=== PATIENT | female | born 1980 | race Caucasian/White ===

== ENCOUNTER 2017-05-06 10:21 | Day surgery (SDC) | payer MEDICAID, SELFPAY ==
[2017-04-25 11:29] VITALS: BP 130/90
[2017-04-25 13:09] VITALS: BMI 33.1
[2017-05-06 10:42] VITALS: BP 144/91; PULSE 83; RESP 16; TEMP 37.1; O2SAT 100; BMI 33.7
--- NOTE | 2017-05-06 11:31 | HP.PCM_ITS ---
- Problem List (1) Chronic pelvic pain in female Status: Acute (2) Left ovarian cyst Status: Acute Comment: plan left ovarian cystectomy possible oophorectomy. us ordered. 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: No Is patient in pain?: Yes Allergies duloxetine [From Cymbalta] Allergy (Verified 04/13/17 15:08) Rash Medications Sumatriptan Succinate [Imitrex] 50 mg PO BID PRN 09/21/14 [History Confirmed ] Is last menstrual period known: No Post menopausal: No Patient : No : No PFSH Medical History History of migraine headaches (Acute) Hypertension (Chronic) Surgical History delivery delivered (Acute) H/O sinus surgery (Acute) H/O: hysterectomy (Acute) History of tonsillectomy (Acute) Family History Mother Cancer cervical Father Cancer Throat Grandmother Breast cancer Cancer Brain Stomach Grandfather Cancer Prostate Lung Social History Smoking Status: Former smoker alcohol intake: never substance use type: does not use caffeine: Yes what type of physical activity do you participate in: none seatbelt use: always do you feel safe at home: Yes additional social history: 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 Date Name GA/Weeks Outcome Route Bth Weight Infant Gen Labor Lgth Anesthesia Del Locatn Provider FOB Unknown 2007 [place] Unknown 2011 [facility] ER FOLLOW UP : Details: KADIE REYES is a 37 year old who presents for a year and ahlf ago had an episode of severe pelvic pain, she had an ovarian abnormality. She has a history of a hysterectomy in the past by dr diallo. In the last 6 months she has had intermittent lower cramping that has bothered her. It does seem more frequent now, and on wednesday it was signficant and yesterday it was severe. Pain is usually on the left side and then it moved to the right. ROS Const Constitutional: Reports system reviewed and no additional complaints, except as docu GI GI: Reports as per HPI : Reports as per HPI Exam Const General: cooperative, healthy appearing, comfortable, no acute distress, well developed, well groomed GI Inspection: normal to inspection, non-distended Palpation: soft, not firm, no guarding, no masses Assessment & Plan Problems 1. Chronic pelvic pain in female R10.2; G89.29 2. Left ovarian cyst N83.202 plan left ovarian cystectomy possible oophorectomy. us ordered. Plan recommend laparoscopic left ovarian cystectomy possible oophorectomy due to persistent ovarian mass and increasing pain. US to be done prior to surgery. counseled patient regarding risks of early menopause, risks of torsion. i discussed surgical risks and patient wishes to proceed. Orders Orders: Pelvic (Non ) 04/13/17 N83.202 Transvaginal Non- 04/13/17 N83.202 Coding Level of Care Code Off vis,new,level 3 Diagnoses Chronic pelvic pain in female R10.2; G89.29 Left ovarian cyst N83.202 04/14/17 0632<Electronically signed by Nicole Vernon MD> Date Nicole eVrnon MD
--- NOTE | 2017-05-06 12:00 | OV_PTH ---
PATIENT: KADIE REYES [place] [facility] [place][id number] AGE/SX: 37/F ROOM: RE05/06/[address]: Dr. Nicole Vernon MD : 1980 BED: DIS: 05/06/2017 SPEC #: [id number] RECD: 05/06/17 14:05 STATUS: VIVEK JAMES #: [id number] SHAN: 05/06/17 12:[address]: Nicole Vernon DEPT: SURGICAL PATHOLOGY RECD BY: Kevin Mcnally ENTERED: 05/06/17 14:17 SP TYPE: OVARY OTHR DR: Dr. Kevin Ashford MD Tissues: OVARIAN CYST Procedures: Surgery Specimen Level IV HEADER OPERATION: Laparoscopic left ovarian cystectomy, lysis of adhesion PRE-OP DIAGNOSIS: Left ovarian cyst, pelvic pain POST-OP DIAGNOSIS: Same plus pelvic adhesions TISSUE SUBMITTED: Left ovarian cyst, partial left ovary MICROSCOPIC DIAGNOSIS Left ovary, partial oophorectomy: Ovary with fragments of hemorrhagic corpus luteal cyst. AM:matt 05/07/17 MICROSCOPIC DESCRIPTION Slides are reviewed. GROSS DESCRIPTION Received in fixative is one container labeled with the patient's name and designated left ovarian cyst, partial left ovary. The specimen consists of multiple pieces of pink, congested and hemorrhagic soft tissue consisting of portion of ovary and tissue that in aggregate measure 5 x 4.5 x 2 cm. Three of the detached fragments consist of blood clots and may represent content of cyst. Focal areas suggestive of hemorrhagic cyst are also noted in the largest piece of tissue. Electronics Research Engineer sections are submitted in four cassettes. / SJ:matt 05/06/17 TC:5 CPT: 71869
[2017-05-06] MEDS: Bupivacaine 0.25% 30 ML Vial (12:50)
[2017-05-06 13:55] VITALS: BP 117/83; BP 144/91; PULSE 60; RESP 16; TEMP 35.9; O2SAT 95
[2017-05-06] MEDS: NON-FORMULARY PO (14:00)
[2017-05-06 14:15] VITALS: BP 109/66; BP 144/91; PULSE 52; RESP 16; O2SAT 99
[2017-05-06 14:30] VITALS: BP 106/67; BP 144/91; PULSE 60; RESP 16; O2SAT 98
[2017-05-06 14:45] VITALS: BP 112/77; BP 144/91; PULSE 55; RESP 16; TEMP 36.8; O2SAT 100
--- NOTE | 2017-05-06 15:15 | PCM.DC.TUB ---
Discharge Diet: No Restrictions - Increase fluid intake for the next 48 hours. Discharge Activity: Return to Normal Activity, May Drive - when you are no longer taking narcotic pain medications., May Shower, May Take a Tub Bath - in 7 days Additional Activity Instructions:: Ambulate often the next week after surgery. Nothing in the vagina for 5 days. Call your doctor if your incision/area has: Continuous Slow Oozing, Sudden Increased Bleeding, Increased Pain/ Swelling, Increased Redness, Foul Smelling Discharge Call your doctor if you observe: Fever of 101 or Higher Allergies/Adverse Reactions: Allergies duloxetine [From Cymbalta] Allergy (Verified 04/25/17 11:29) Rash Medications to take at Discharge Sumatriptan Succinate [Imitrex] 50 mg PO BID PRN 09/21/14 Buprenorphine HCl/Naloxone HCl [Suboxone 2 mg-0.5 mg Sl Film] 2 each SL TID 04/20/17 azithromycin 250 mg tablet See Label Instructions PO .COMPLEX #6 tab 04/25/17 Naproxen [Naprosyn] 250 - 500 mg PO Q8H PRN PRN #30 tab 05/06/17 The following prescriptions were given: Naproxen [Naprosyn] 250 - 500 mg PO Q8H PRN PRN #30 tab PRN Reason: MILD PAIN Primary Care Physician: Kevin Ashford MD [Primary Care Provider] - Please Follow Up With: Nicole Vernon MD - [phone]
[2017-05-06 15:28] VITALS: BP 144/91
--- NOTE | 2017-05-07 07:05 | PCM.OPRPT ---
Problem List (1) Chronic pelvic pain in female Status: Acute (2) Left ovarian cyst Status: Acute Comment: plan left ovarian cystectomy possible oophorectomy. us ordered. Report of Operation Date of Procedure: 05/06/17 Pre-Operative Diagnosis: left complex ovarian cyst pelvic pain Post-Operative Diagnosis: complex left ovarian cyst endometriosis Surgery/Procedure Performed:: left ovarian cystectomy partial oophorectomy extensive lysis of adhesions laparoscopic Type of Anesthesia:: General Specimen's removed: left ovarian cyst/ ovary Drains: none Estimated Blood Loss (mL): 50cc Fluids Replaced: crystalloid Description of Procedure: Patient was taken in the operating room and was placed under general anesthesia was prepped and draped in normal sterile fashion in the dorsal lithotomy position. Bladder was drained of clear urine and SCDs were on preoperatively. Uterus was sounded and a uterine manipulator was placed after dilating. Attention was then paid to the abdominal portion of the procedure and the umbilicus was elevated with towel clamps and injected with Marcaine and after a 5 mm incision was made and the Veress needle was entered into the abdomen confirmed to be intra-abdominal with a low opening pressure of less than 5 mmHg. Abdomen was insufflated with CO2 gas and a 5 mm optical trocar was placed under direct visualization. A right and left lower quadrant 5 mm port and were placed under direct visualization. Liver and upper abdomen were visualized notably within normal limits and no other gross abnormalities were seen in the abdomen. extensive rectosigmoid to left pelvic side wall and colon to left ovarian and enteric adhesions to the vaginal cuff were noted. bowel adhesions to the cuff were taken down bluntly, with hydrodissection, and with the ligasure device. the ovary was severely adherent to the ovarian fossa and progressive separation of the tissues were made with sharp and blunt dissection. approimatley 40 minutes were spent on adhesioloysis. the left sigmoid to pelvic side wall adhesions were taken down with the ligasure device. an endometrioma was entered and the cyst wall was progressively removed and contents copiously irrigated. the remaining ovary was noted to be signficantly abnormal and therefore 3/4s of the ovary itself was removed but some residual normal ovarian tissue was left to maintain ovarian function. Ureter was visualized inferolateral to the operative area. At completion of the parital oophorectoomy cystectomy and extensive lysis of adhesions, the right 12 mm port site was closed with an vicryl using a bib swan. All instruments removed from the abdomen after gas was desufflated. Port sites were closed with 3-0 Monocryl Steri's and op sites were applied. All instruments removed from the vagina and patient was awoken and taken recovery in stable condition. Grafts/Implants Used: elisa - Complications no - Admit VTE Documentation VTE Present on Admission: No VTE Mechan Device Prophylaxis: SCD's
== END 2017-05-06 15:45 | disposition home or self-care (01) ==
LOC: SDC 10:21 → AC 10:22
PROVIDERS: Family Provider Family Medicine; PCP Family Medicine; Visit Provider Obstetrics & Gynecology
PROC: (CPT 58661; principal; 2017-05-06 11:45)
DX: N83.12 Corpus luteum cyst of left ovary (principal); G89.29 Other chronic pain; N80.1 Endometriosis of ovary; N73.6 Female pelvic peritoneal adhesions (postinfective); G43.909 Migraine, unspecified, not intractable, without status migrainosus; I10 Essential (primary) hypertension; Z79.899 Other long term (current) drug therapy; Z87.891 Personal history of nicotine dependence; R10.2 Pelvic and perineal pain
CPT/HCPCS: 00840; 58662; 86850; 86900; 88305; J7120; J2405

== ENCOUNTER → 2017-10-01 12:03 | Outpatient (CLI) | payer MEDICAID, SELFPAY ==
--- NOTE | 2017-10-01 12:05 | RAD_ITS ---
STUDY: X-RAY - RIGHT FOOT CLINICAL: Female, 37 years old. Lateral foot pain following injury. TECHNIQUE: 3 view(s) of the foot. COMPARISON: None. FINDINGS: Normal talus, calcaneus, and tarsal bones. Normal visualized subtalar, talonavicular, calcaneocuboid, tarsal and tarsometatarsal articulations. Normal metatarsi. Normal metatarsophalangeal joint of the great toe. Normal tibial and fibular sesamoid bones. Normal interphalangeal joint of the great toe. Normal phalanges of the great toe. Normal second through fifth metatarsophalangeal joints. Normal interphalangeal joints and phalanges of the lesser toes. The soft tissue structures are unremarkable. RAD/Foot min 3 Views IMPRESSION: Normal x-ray examination of the foot. Electronically Signed: Sukhwinder Martinez MD at 12:33 EDT Tel [phone], Service support ,
== END ==
PROVIDERS: Family Provider Family Medicine; PCP Family Medicine; Visit Provider Physician Assistant Surgical
DX: S96.911A Strain of unspecified muscle and tendon at ankle and foot level, right foot, initial encounter (principal)
CPT/HCPCS: 73630

== ENCOUNTER → 2018-03-15 14:02 | Outpatient (CLI) | payer MEDICAID, SELFPAY ==
[2018-03-14 14:14] VITALS: BMI 33.7
[2018-03-15 15:02] LABS: Red Blood Cells-Urine 0 SEEN /hpf (0-5); White Blood Cells 0 SEEN /hpf (0-5)
[2018-03-15 15:11] LABS: Color, Urine Yellow (Yellow); Glucose, Dipstick Normal (Normal); Ketone-Dipstick Negative (Negative); Leukocyte Esterase-Dipstick Negative /ul (Negative); Nitrite-Dipstick Negative (Negative); Occult Blood-Urine Negative /ul (Negative); Protein-Dipstick Negative (Negative); Urine Bilirubin Dipstick Negative (Negative); Urine Clarity Sl. Cloudy (Clear); Urine Urobilinogen Normal (Normal)
[2018-03-15 15:19] LABS: Bacteria RARE /hpf (None Seen); Calcium Oxalate Crystals Ur 1+ /hpf (<or=2+); Mucous, Urine 1+ /hpf (<or=2+); Squamous Epithelial Cells - UA 0-5 SEEN /hpf (5-10)
--- OUTSIDE RECORDS SUMMARY | 2018-06-17 01:37 | XMS RPT_ITS ---
:1980 Author Organization OHIP Care Team Providers Name Role Phone Austin Back Attending Unavailable Kevin Ashford Referring Unavailable Austin Back Attending Unavailable Austin Back Referring Unavailable Schberta, Kevin E Primary Care Unavailable Nicole Vernon Attending Unavailable Dejon, Kevin E Primary Care Unavailable Nicole Vernon Referring Unavailable Leland Madden Attending Unavailable Schinhelen Kevin Yari Referring Unavailable Schberta Kevin E Primary Care Unavailable Nicole Vernon Attending Unavailable Nicole Vernon Referring Unavailable Dejon Kevin E Primary Care Unavailable Nicole Vernon Consulting Unavailable Nicole Vernon Attending Unavailable Nicole Vernon Referring Unavailable Kevin Ashford Primary Care Unavailable Nicole Vernon Consulting Unavailable Meek Gloria Attending Unavailable Kevin Ashford Referring Unavailable Kevin Ashford Primary Care Unavailable Meek Gloria Attending Unavailable Meek Gloria Referring Unavailable Kevin Ashford Primary Care Unavailable Meek Gloria Attending Unavailable Kevin Ashford Referring Unavailable PROBLEMS PROBLEMS DATE TYPE CONDITION / CODE ATTENDING STATUS SOURCE 03/15/2018 Unknown R51 - Headache / Wygibson, Austin Active [facility] R51(ICD-10) [facility] Repository 10/01/2017 Unknown S96.911A - Strain Meek Gloria Active [facility] of unspecified [facility] muscle and tendon Hospital at ankle and foot Repository level, right foot, initial encounter / S96.911A(ICD-10) PROCEDURES PROCEDURES No Procedure Records FoundRESULTS RESULTS URINALYSIS, COMPLETE Collected: 03/15/2018 Status: F Source: [place] 3:01 PM [facility] REPOSITORY Order Comment: How was Urine Obtained? CLEAN CATCH TYPE CODE TESTS RESULT OUT OF RANGE REFERENCE UNITS LAB L400.3000 Yellow COLOR Normal Yellow LAB L400.3050 Clear Normal CLARITY Sl. Cloudy LAB L400.3200 Normal mg/dl Normal GLUCOSE, UR Normal LAB L400.3300 Negative mg/dL Normal BILIRUBIN URINE Negative LAB L400.3400 Negative mg/dl Normal KETONE UR Negative LAB L400.3465 1.002-1.030 Normal SP.GR. DIPSTX 1.020 LAB L400.3550 5.0 - 8.0 pH UR Normal 6.0 LAB L400.3600 Negative mg/dl PROT Normal DIPSTX Negative LAB L400.3700 Normal mg/dl Normal UROBILI Normal LAB L400.3750 Negative Normal NITRITE UR Negative LAB L400.3780 Negative /ul Normal OCCULT BLOOD-UR Negative LAB L400.3800 Negative /ul LEUK Normal ESTERASE Negative LAB L400.4050 0-5 /hpf WBC 0 Normal SEEN LAB L400.4100 0-5 /hpf 0 Normal RBC-UA SEEN LAB L400.4150 5-10 /hpf SQUAM Normal EPI 0-5 SEEN LAB L400.4300 None Seen /hpf Normal BACTERIA RARE LAB L400.4350 <or=2+ /hpf 1+ Normal MUCUS, URINE LAB L400.4700 <or=2+ /hpf CA OX 1+ Normal CRYSTAL Performed By: #### L400.0001 #### [facility] [address] [place], [place], [id number] Observed: 03/15/2018 Status: F Source: [place] CULTURE, URINE 1:15 PM [facility] REPOSITORY Urine Culture Culture exhibits no growth. Performed By: #### M100.0650 #### [facility] [address] [place], [place], [id number] URGENT CARE VISIT Observed: 03/14/2018 Status: F Source: [place] REPORT 4:13 PM [facility] REPOSITORY [facility] [address] [place] [address] OFFICE VISIT Date of Service: 03/14/18 MR#: [id number] Acct: [id number] Name: KADIE SWAN Dusty Rep #: [id number] : 1980 Provider: Austin ORDOÑEZ Age/Sex: 38/F Location: [facility].NOW Status: Signed Intake Vital Signs03/14/18 Body Mass Index (BMI) 33.7 03/14/18 Height 5 ft 5 in 03/14/18 Weight: 202 lb Intake Visit Reasons: EAR PAIN/MIGRAINE/FEVER Chief Complaint: Cough, Chest Congestion Allergies duloxetine [From Cymbalta] Allergy (Verified 03/14/18 14:14) Rash Medications Sumatriptan Succinate [Imitrex] 50 mg PO BID PRN 09/21/14 [History Confirmed 03/14/18] Buprenorphine HCl/Naloxone HCl [Suboxone 2 mg-0.5 mg Sl Film] 2 ea SL TID 04/20/17 [History Confirmed 03/14/18] Naproxen [Naprosyn] 250 - 500 mg PO Q8H PRN PRN #30 tab 05/06/17 [Rx Confirmed 03/14/18] PFSH Medical History H/O: hysterectomy (Acute) History of migraine headaches (Acute) Hypertension (Chronic) Surgical History delivery delivered (Acute) H/O sinus surgery (Acute) History of tonsillectomy (Acute) Family History Mother Cancer cervical Father Cancer Throat Grandmother Breast cancer Cancer Brain Stomach Grandfather Cancer Prostate Lung Social History Smoking Status: Former smoker alcohol intake: never substance use type: does not use caffeine: Yes what type of physical activity do you participate in: none seatbelt use: always do you feel safe at home: Yes additional social history: Patient is single and has in home day care HPI HPI Chief Complaint: Cough, Chest Congestion Details: KADIE SWAN is a 38 F who presents to the office today for initial evaluation 3-day history of migraine headaches that she describes. She notes 3 days ago upon awakening describing herself as feeling, just not feeling well but upon questioning for patient to further describe her symptoms she is unable to. She notes having a history of migraine headaches stating she has taken Imitrex as prescribed by her primary care physician but this has not helped. She currently notes her headache has subsided somewhat but is still present. She notes no complaints of lightheadedness dizziness nausea vomiting. She notes no history of head trauma. Additionally, patient notes that she has been having urinary frequency over the last several days as well. She notes no changes in the color or character of her urine or stool. She notes no taking over the other counter products to assist with her symptoms. She notes no other associated symptoms and no other alleviating or aggravating factors. ROS Const Constitutional: No other (ROS negative x10 other than as noted above) Exam Const General: cooperative, healthy appearing, no acute distress, comfortable Nutritional Appearance: average body habitus Orientation: alert, awake, oriented x3 HENMT Head: normal to inspection Ears: hearing grossly normal bilaterally, external ears normal, TM's normal bilaterally, EAC's normal Nose: external nose normal, nares normal, septum normal, no nasal discharge Face and sinus: normal facial exam, sinuses nontender, face symmetric Mouth: tongue normal, lip normal, oral mucosae normal Teeth and gingiva: dentition normal, gingiva normal Throat: uvula midline, tonsils normal, posterior oropharynx normal, no postnasal drainage Eyes General: appearance normal, both eyes and all related structures Neck Neck: normal visual inspection, full ROM, no lymphadenopathy, no meningeal signs, supple Neck mass: No Thyroid: thyroid normal Lymphatic: no lymphadenopathy noted Chest Chest palpation AND inspection: normal inspection of the chest Resp Effort AND Inspection: normal respiratory effort, able to speak in complete sentences, symmetric chest movement, no cough Auscultation: Bilateral: Clear to Auscultation Cardio Palpation: normal PMI Rate: regular rate Rhythm: regular rhythm Heart Sounds: S1 normal, S2 normal, no gallops, no murmurs, no rubs Pulses: radial pulses present GI Inspection: normal to inspection Palpation: soft, no hepatosplenomegaly, nontender, not firm, no guarding General: No CVA tenderness, other (Negative urinalysis dip and negative urine hCG) Skin General: no rashes or lesions noted Neuro General: alert, awake, oriented x3, gait normal Cognition: normal cognition Speech: speech normal Gait: normal gait Motor: muscle tone normal throughout Sensory Exam: no sensory deficits noted Psych Appearance: grossly normal Mental Status: mental status grossly normal Mood: congruent mood Affect: normal affect Speech and Movement: speech and movement normal Attitude: cooperative Thought Process: normal Thought Content: normal Judgment: judgment good Results [facility] Office , Urine Negative Last Edit by Gilda Frias on 03/14/18 15:17 [facility] Office Urine Color YELLOW Last Edit by Gilda Frias on 03/14/18 15:18 Office Urine Clarity Clear Last Edit by Gilda Frias on 03/14/18 15:18 Assessment AND Plan Problems 1. Headache R51 2. Urinary frequency R35.0 Plan Clear fluids, rest, Tylenol as needed for symptomatic relief. Patient aware of today's urinalysis dip and urine hCG results as well as examination findings. Follow-up with PCP in 3-5 days should symptoms not improved, sooner should symptoms worsen or any other concerns develop. Patient states acknowledging understanding all the above. This note was generated with Method dictation software. It may contain incorrect words, spelling, and punctuation that were not noted in checking the note before signing. Orders Orders: Coding Level of Care Code Off vis,est,level 3 Diagnoses Headache R51 Urinary frequency R35.0 03/14/18 1613 <Electronically signed by Austin ORDOÑEZ> Date Austin Tanner Signature: Date (if applicable) CC: URGENT CARE VISIT Observed: 01/18/2018 Status: F Source: [place] REPORT 3:48 PM [facility] REPOSITORY [facility] [address] [place] [address] [address] [place] [address] OFFICE VISIT Date of Service: 01/18/18 MR#: [id number] Acct: [id number] Name: KADIE SWAN Rep #: [id number] : 1980 Provider: Meek ORDOÑEZ Age/Sex: 38/F Location: [facility] Status: Signed Intake Vital Signs01/18/18 Height 5 ft 5 in Intake Visit Reasons: VOMITING Allergies duloxetine [From Cymbalta] Allergy (Verified 01/18/18 15:24) Rash Medications Sumatriptan Succinate [Imitrex] 50 mg PO BID PRN 09/21/14 [History Confirmed 01/18/18] Buprenorphine HCl/Naloxone HCl [Suboxone 2 mg-0.5 mg Sl Film] 2 ea SL TID 04/20/17 [History Confirmed 01/18/18] Naproxen [Naprosyn] 250 - 500 mg PO Q8H PRN PRN #30 tab 05/06/17 [Rx Confirmed 01/18/18] PFSH Medical History H/O: hysterectomy (Acute) History of migraine headaches (Acute) Hypertension (Chronic) Surgical History delivery delivered (Acute) H/O sinus surgery (Acute) History of tonsillectomy (Acute) Family History Mother Cancer cervical Father Cancer Throat Grandmother Breast cancer Cancer Brain Stomach Grandfather Cancer Prostate Lung Social History Smoking Status: Former smoker alcohol intake: never substance use type: does not use caffeine: Yes what type of physical activity do you participate in: none seatbelt use: always do you feel safe at home: Yes additional social history: Patient is single and has in home day care HPI HPI Details: KADIE SWAN, is a 38 F who presents to the office today for complaint of nausea and vomiting for the past 18 hours. Patient states that her nausea and vomiting started yesterday and then continued this morning and today while at work. She denies any hematemesis, abdominal pain, diarrhea or hematochezia. She had no shortness of breath, difficulty breathing or chest pain. No fever, chills, sweats. No other associated symptoms or alleviating/aggravating factors. ROS Const Constitutional: No chills, fever(s), fatigue or abnormal sleep pattern Resp Respiratory: No shortness of breath or chest congestion Cardio Cardiology: No chest pain at rest, chest pain with exertion or shortness of breath Gastro GI: Positive for nausea/dyspepsia and vomiting; no diarrhea, Vomiting blood/hematemesis, Black,tarry stools or cramping Skin Skin: No wounds or lesions Neuro Neurology: No behavioral changes or confusion Psych Psychiatric: No abnormal sleep pattern, No behavioral changes, No confusion Endo Endocrine: No fatigue Exam Const General: cooperative, healthy appearing [facility] Head: normocephalic, atraumatic Ears: hearing grossly normal bilaterally Face and sinus: face symmetric Eyes General: appearance normal, both eyes and all related structures Pupils: PERRL Resp Effort AND Inspection: normal respiratory effort Auscultation: Bilateral: Clear to Auscultation Cardio Rate: regular rate Rhythm: regular rhythm Heart Sounds: S1 normal, S2 normal GI Inspection: normal to inspection Auscultation: hyperactive bowel sounds Percussion: normal to percussion Palpation: soft, no hepatosplenomegaly, no guarding, nontender General: No CVA tenderness, bimanual renal exam normal bilaterally Skin General: no rashes or lesions noted Neuro General: alert, CN's II-XI intact bilaterally Psych Appearance: grossly normal Mental Status: mental status grossly normal Assessment AND Plan Problems 1. Acute vomiting R11.10 Status Acute 2. Gastroenteritis K52.9 Status Acute Plan Encouraged to get plenty of rest, drink lots of clear liquids for the next 24 hours and then advance diet slowly, and use Tylenol or Ibuprofen (unless contraindicated) for fever and comfort. Patient also educated on other symptomatic management techniques. To be seen in 7-10 days if no improvement; sooner if worsening of symptoms. Patient advised of potential red flags and when appropriate report to the ED. Patient verbalized understanding and agreement with all the above. Medications Discontinued: azithromycin Discontinued Reason: Pt no l500 mg day 1, then 250 mg days 2-4 PO 6 tabs onger taking 0RF Coding Level of Care Code Off vis,est,level 3 Diagnoses Acute vomiting R11.10 Gastroenteritis K52.9 01/18/18 1548 <Electronically signed by Meek ORDOÑEZ> Date Meek ORDOÑEZ Cosigner Signature: Date (if applicable) CC: URGENT CARE VISIT Observed: 10/01/2017 Status: F Source: [place] REPORT 4:44 PM [facility] REPOSITORY [facility] [address] [place] [address] OFFICE VISIT Date of Service: 10/01/17 MR#: [id number] Acct: [id number] Name: KADIE SWAN Rep #: [id number] : 1980 Provider: Meek ORDOÑEZ Age/Sex: 37/F Location: [facility] Status: Signed Intake Vital Signs10/01/17 Height 5 ft 5 in Intake Visit Reasons: r foot injury 1month ago Grain Receiver Required: No Is patient in pain?: Yes (achy and sharp pain in right foot) Pain scale (1-10): 5 Allergies duloxetine [From Cymbalta] Allergy (Verified 10/01/17 11:57) Rash Medications Sumatriptan Succinate [Imitrex] 50 mg PO BID PRN 09/21/14 [History Confirmed 10/01/17] Buprenorphine HCl/Naloxone HCl [Suboxone 2 mg-0.5 mg Sl Film] 2 ea SL TID 04/20/17 [History Confirmed 10/01/17] azithromycin 250 mg tablet See Label Instructions PO .COMPLEX #6 tab 04/25/17 [Rx Confirmed 10/01/17] Naproxen [Naprosyn] 250 - 500 mg PO Q8H PRN PRN #30 tab 05/06/17 [Rx Confirmed 10/01/17] PFSH Medical History History of migraine headaches (Acute) Hypertension (Chronic) Surgical History delivery delivered (Acute) H/O sinus surgery (Acute) H/O: hysterectomy (Acute) History of tonsillectomy (Acute) Family History Mother Cancer cervical Father Cancer Throat Grandmother Breast cancer Cancer Brain Stomach Grandfather Cancer Prostate Lung Social History Smoking Status: Former smoker alcohol intake: never substance use type: does not use caffeine: Yes what type of physical activity do you participate in: none seatbelt use: always do you feel safe at home: Yes additional social history: Patient is single and has in home day care HPI HPI Details: KADIE SWAN, is a 37 F who presents to the office today for complaint of right foot pain. Patient states approximate 1 month ago her son jumped and landed on her foot. She does report that her pain in that foot has improved since however over the past 3 or 4 days she has been hiking quite a bit and has had an increase in the foot pain. She is concerned for possible fracture and is requesting an x-ray at this time. She denies any numbness or tingling to the foot she does report to continue have full range of motion. She reports the pain at this time is a 4-5 out of 10 at worst and a 1-2 out of 10 at rest. No other associated symptoms or alleviating/aggravating factors. ROS Const Constitutional: No chills, fever(s), fatigue or abnormal sleep pattern Musc Musculoskeletal: Positive for joint pain; no limited range of motion, numbness or tingling Skin Skin: No wounds or lesions Neuro Neurology: No behavioral changes, confusion, numbness or tingling Psych Psychiatric: No behavioral changes, No confusion, No abnormal sleep pattern Endo Endocrine: No fatigue Exam Const General: cooperative, healthy appearing Musc Musculoskeletal: Yes joint tenderness Skin General: no rashes or lesions noted Neuro General: alert, CN's II-XI intact bilaterally Extrem Other: Slight tenderness to palpation over the arch of the foot. Full range of motion, strength and sensation. No obvious deformity upon palpation. Psych Appearance: grossly normal Mental Status: mental status grossly normal Assessment AND Plan Problems 1. Strain of right foot, initial encounter S96.911A Status Acute Plan X-ray of the foot read and reviewed by myself with no acute findings. Patient advised to rest, ice, compression and elevation for supportive care. Advised to use ibuprofen as needed for pain control. Advised to follow-up with PCP in 5-7 days if no better or sooner if worse. Patient verbalized understanding of all the above. This note was generated with Method dictation software. It may contain incorrect words, spelling, and punctuation that were not noted in checking the note before signing. Orders Orders: Coding Level of Care Code Off vis,est,level 3 Diagnoses Strain of right foot, initial encounter S96.911A Encounter type: initial encounter 10/01/17 1644 <Electronically signed by Meek ORDOÑEZ> Date Meek ORDOÑEZ Cosigner Signature: Date (if applicable) CC: FOOT MIN 3 VIEWS Observed: 10/01/2017 Status: F Source: [place] 12:05 PM [facility] REPOSITORY [facility] Imaging Services [address] [place] [address] Foot min 3 Views MR#: [id number] Acct: [id number] Name: KADIE SWAN Rep #: [id number] : 1980 F 37 From: Sukhwinder Martinez MD PCP: Kevin Ashford MD Status: REG CLI Study: Foot min 3 Views Date of Exam: 10/01/17 Exam# [id number] Ordering Dr: Meek Gloria STUDY: X-RAY - RIGHT FOOT CLINICAL: Female, 37 years old. Lateral foot pain following injury. TECHNIQUE: 3 view(s) of the foot. COMPARISON: None. FINDINGS: Normal talus, calcaneus, and tarsal bones. Normal visualized subtalar, talonavicular, calcaneocuboid, tarsal and tarsometatarsal articulations. Normal metatarsi. Normal metatarsophalangeal joint of the great toe. Normal tibial and fibular sesamoid bones. Normal interphalangeal joint of the great toe. Normal phalanges of the great toe. Normal second through fifth metatarsophalangeal joints. Normal interphalangeal joints and phalanges of the lesser toes. The soft tissue structures are unremarkable. RAD/Foot min 3 Views IMPRESSION: Normal x-ray examination of the foot. Electronically Signed: Sukhwinder Martinez MD at 12:33 EDT Tel [phone], Service support , CC: Meek ORDOÑEZ; Kevin Ashford MD Follow Up Rep: Signed OPERATIVE REPORT Observed: 05/07/2017 Status: F Source: [place] 7:14 AM [facility] REPOSITORY [facility] Medical Records Department [address] [place] [address] Operative Report 05/07/17 0705 MR#: [id number] Acct: [id number] Name: KADIE SWAN Rep #: [id number] : 1980 37 From: Nicole Vernon MD PCP: Kevin Ashford MD Status: [facility] Location: [facility] Problem List (1) Chronic pelvic pain in female Status: Acute (2) Left ovarian cyst Status: Acute Comment: plan left ovarian cystectomy possible oophorectomy. us ordered. Report of Operation Date of Procedure: 05/06/17 Pre-Operative Diagnosis: left complex ovarian cyst pelvic pain Post-Operative Diagnosis: complex left ovarian cyst endometriosis Surgery/Procedure Performed:: left ovarian cystectomy partial oophorectomy extensive lysis of adhesions laparoscopic Type of Anesthesia:: General Specimen's removed: left ovarian cyst/ ovary Drains: none Estimated Blood Loss (mL): 50cc Fluids Replaced: crystalloid Description of Procedure: Patient was taken in the operating room and was placed under general anesthesia was prepped and draped in normal sterile fashion in the dorsal lithotomy position. Bladder was drained of clear urine and SCDs were on preoperatively. Uterus was sounded and a uterine manipulator was placed after dilating. Attention was then paid to the abdominal portion of the procedure and the umbilicus was elevated with towel clamps and injected with Marcaine and after a 5 mm incision was made and the Veress needle was entered into the abdomen confirmed to be intra-abdominal with a low opening pressure of less than 5 mmHg. Abdomen was insufflated with CO2 gas and a 5 mm optical trocar was placed under direct visualization. A right and left lower quadrant 5 mm port and were placed under direct visualization. Liver and upper abdomen were visualized notably within normal limits and no other gross abnormalities were seen in the abdomen. extensive rectosigmoid to left pelvic side wall and colon to left ovarian and enteric adhesions to the vaginal cuff were noted. bowel adhesions to the cuff were taken down bluntly, with hydrodissection, and with the ligasure device. the ovary was severely adherent to the ovarian fossa and progressive separation of the tissues were made with sharp and blunt dissection. approimatley 40 minutes were spent on adhesioloysis. the left sigmoid to pelvic side wall adhesions were taken down with the ligasure device. an endometrioma was entered and the cyst wall was progressively removed and contents copiously irrigated. the remaining ovary was noted to be signficantly abnormal and therefore 3/4s of the ovary itself was removed but some residual normal ovarian tissue was left to maintain ovarian function. Ureter was visualized inferolateral to the operative area. At completion of the parital oophorectoomy cystectomy and extensive lysis of adhesions, the right 12 mm port site was closed with an vicryl using a bib swan. All instruments removed from the abdomen after gas was desufflated. Port sites were closed with 3-0 Monocryl Steri's and op sites were applied. All instruments removed from the vagina and patient was awoken and taken recovery in stable condition. Grafts/Implants Used: elisa - Complications no - Admit VTE Documentation VTE Present on Admission: No VTE Mechan Device Prophylaxis: SCD's 05/07/17 0714 <Electronically signed by Nicole Vernon MD> Date Nicole Vernon MD CC: Kevin Ashford MD; Nicole Vernon MD Signed DISCHARGE INSTRUCTION Observed: 05/06/2017 Status: F Source: [place] 3:15 PM [facility] REPOSITORY [facility] Medical Records Department [address] [place] [address] Instructions for Home/Discharge Instructions 05/06/17 1515 MR#: [id number] Acct: [id number] Name: KADIE SWAN Rep #: [id number] : 1980 37 From: Nicole Vernon MD PCP: Kevin Ashford MD Status: REG SDC Discharge Diet: No Restrictions - Increase fluid intake for the next 48 hours. Discharge Activity: Return to Normal Activity, May Drive - when you are no longer taking narcotic pain medications., May Shower, May Take a Tub Bath - in 7 days Additional Activity Instructions:: Ambulate often the next week after surgery. Nothing in the vagina for 5 days. Call your doctor if your incision/area has: Continuous Slow Oozing, Sudden Increased Bleeding, Increased Pain/ Swelling, Increased Redness, Foul Smelling Discharge Call your doctor if you observe: Fever of 101 or Higher Allergies/Adverse Reactions: Allergies duloxetine [From Cymbalta] Allergy (Verified 04/25/17 11:29) Rash Medications to take at Discharge Sumatriptan Succinate [Imitrex] 50 mg PO BID PRN 09/21/14 Buprenorphine HCl/Naloxone HCl [Suboxone 2 mg-0.5 mg Sl Film] 2 each SL TID 04/20/17 azithromycin 250 mg tablet See Label Instructions PO .COMPLEX #6 tab 04/25/17 Naproxen [Naprosyn] 250 - 500 mg PO Q8H PRN PRN #30 tab 05/06/17 The following prescriptions were given: Naproxen [Naprosyn] 250 - 500 mg PO Q8H PRN PRN #30 tab PRN Reason: MILD PAIN Primary Care Physician: Kevin Ashford MD [Primary Care Provider] - Please Follow Up With: Nicole Vernon MD - [phone] 05/06/175 <Electronically signed by Nicole Vernon MD> Date Nicole Vernon MD CC: Kevin Ashford MD OVARY (CHOOSE SIDE) Observed: 05/06/2017 Status: F Source: [place] 12:00 PM [facility] [place] REPOSITORY Patient: KADIE SWAN : 1980 (37/F) Acct Num: [id number] Phys: Saulo HINKLE,Nicole Unit Num: [id number] Loc: [facility] Specimen: [id number] Received: 05/06/171404 Spec Type: OVARY TISSUES TISSUES: OVARIAN CYST GROSS DESCRIPTION Received in fixative is one container labeled with the patient's name and designated left ovarian cyst, partial left ovary. The specimen consists of multiple pieces of pink, congested and hemorrhagic soft tissue consisting of portion of ovary and tissue that in aggregate measure 5 x 4.5 x 2 cm. Three of the detached fragments consist of blood clots and may represent content of cyst. Focal areas suggestive of hemorrhagic cyst are also noted in the largest piece of tissue. Superintendent Refuse Disposal sections are submitted in four cassettes. / SJ:matt TC:5 CPT: 95209 HEADER OPERATION: Laparoscopic left ovarian cystectomy, lysis of adhesion PRE-OP DIAGNOSIS: Left ovarian cyst, pelvic pain POST-OP DIAGNOSIS: Same plus pelvic adhesions TISSUE SUBMITTED: Left ovarian cyst, partial left ovary MICROSCOPIC DESCRIPTION Slides are reviewed. MICROSCOPIC DIAGNOSIS Left ovary, partial oophorectomy: Ovary with fragments of hemorrhagic corpus luteal cyst. AM:matt 05/07/17 Signed Remington Etienne 05/07/17 <signature on file> Performed By: #### POV #### [facility] [address] [place], [place], [address] HISTORY AND PHYSICAL Observed: 05/06/2017 Status: F Source: GREGORY EXAM 11:31 AM [facility] REPOSITORY [facility] Medical Records Department [address] [place] [address] History and Physical 05/06/17 1130 MR#: [id number] Acct: [id number] Name: KADIE SWAN N Rep #: [id number] : 1980 37 From: Nicole Vernon MD PCP: Kevin Ashford MD Status: REG [facility] Y Location: [place] [address] - Problem List (1) Chronic pelvic pain in female Status: Acute (2) Left ovarian cyst Status: Acute Comment: plan left ovarian cystectomy possible oophorectomy. us ordered. History and Physical Date of Admission: 05/06/17 OFFICE VISIT Date of Service: 04/13/17 MR#:[id number]:[id number] Name: KADIE SWAN NRep #:[id number] : 1980 Provider:Nicole Vernon MD Age/Sex: 37/F Location:[facility] [place] Status:Signed Intake Vital Signs 04/13/17 Height 5 ft 5 in 04/13/17 Weight: 205 lb 04/13/17 Body Mass Index (BMI) 34.1 04/13/17 Blood Pressure 143/97 Intake Visit Reasons: ER FOLLOW UP Chief Complaint: ER Follow Up Ovarian cyst left Grain Receiver Required: No Is patient in pain?: Yes Allergies duloxetine [From Cymbalta] Allergy (Verified 04/13/17 15:08) Rash Medications Sumatriptan Succinate [Imitrex] 50 mg PO BID PRN 09/21/14 [History Confirmed 04/13/17] Is last menstrual period known: No Post menopausal: No Patient : No : No PFSH Medical History History of migraine headaches (Acute) Hypertension (Chronic) Surgical History delivery delivered (Acute) H/O sinus surgery (Acute) H/O: hysterectomy (Acute) History of tonsillectomy (Acute) Family History Mother Cancer cervical Father Cancer Throat Grandmother Breast cancer Cancer Brain Stomach Grandfather Cancer Prostate Lung Social History Smoking Status: Former smoker alcohol intake: never substance use type: does not use caffeine: Yes what type of physical activity do you participate in: none seatbelt use: always do you feel safe at home: Yes additional social history: 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 Date Name GA/Weeks Outcome Route Bth Weight Gen Labor Lgth Anesthesia Del Locatdusty Provider FOB Unknown 2007 Nara Unknown 2011 Miguel Angel [facility] ER FOLLOW UP : Details: KADIE SWAN is a 37 year old who presents for a year and ahlf ago had an episode of severe pelvic pain, she had an ovarian abnormality. She has a history of a hysterectomy in the past by dr diallo. In the last 6 months she has had intermittent lower cramping that has bothered her. It does seem more frequent now, and on wednesday it was signficant and yesterday it was severe. Pain is usually on the left side and then it moved to the right. ROS Const Constitutional: Reports system reviewed and no additional complaints, except as docu GI GI: Reports as per HPI : Reports as per HPI Exam Const General: cooperative, healthy appearing, comfortable, no acute distress, well developed, well groomed GI Inspection: normal to inspection, non-distended Palpation: soft, not firm, no guarding, no masses Assessment AND Plan Problems 1. Chronic pelvic pain in female R10.2; G89.29 2. Left ovarian cyst N83.202 plan left ovarian cystectomy possible oophorectomy. us ordered. Plan recommend laparoscopic left ovarian cystectomy possible oophorectomy due to persistent ovarian mass and increasing pain. US to be done prior to surgery. counseled patient regarding risks of early menopause, risks of torsion. i discussed surgical risks and patient wishes to proceed. Orders Orders: Pelvic (Non ) 04/13/17 N83.202 Transvaginal Non- 04/13/17 N83.202 Coding Level of Care Code Off vis,new,level 3 Diagnoses Chronic pelvic pain in female R10.2; G89.29 Left ovarian cyst N83.202 04/14/17 0632<Electronically signed by Nicole Vernon MD> Date Nicole Vernon MD 05/06/17 1131 <Electronically signed by Nicole Vernon MD> Date [facility] MD [facility] Signature: Date (if applicable) CC: Kevin Ashford MD; Nicole Vernon MD Signed TYPE AND SCREEN Collected: 05/06/2017 Status: F Source: [place] 10:35 AM [facility] REPOSITORY Order Comment: Reason for Type AND Screen/Red Cells: SURGERY TYPE CODE TESTS RESULT OUT OF RANGE REFERENCE UNITS LAB B10.0800 O Normal BLOOD TYPE GEL NEGATIVE LAB B100.4000 Normal Antibody NEGATIVE Screen Performed By: #### B101.7450 #### [facility] [address] [place], [place], [address] URGENT CARE VISIT Observed: 04/25/2017 Status: F Source: [place] REPORT 1:10 PM [facility] REPOSITORY [facility] [address] [place] [address] [address] [place], [place] [address] OFFICE VISIT Date of Service: 04/25/17 MR#: [id number] Acct: [id number] Name: KADIE SWAN Rep #: [id number] : 1980 Provider: SMITA Madden Age/Sex: 37/F Location: [facility] [place] Status: Signed Intake Vital Signs04/25/17 Body Mass Index (BMI) 33.1 04/25/17 Height 5 ft 5 in 04/25/17 Weight: 199 lb 2 oz 04/25/17 Body Mass Index (BMI) 33.1 04/25/17 Blood Pressure 130/90 Intake Visit Reasons: Cough Chief Complaint: Cough, Chest Congestion Allergies duloxetine [From Cymbalta] Allergy (Verified 04/25/17 11:29) Rash Medications Sumatriptan Succinate [Imitrex] 50 mg PO BID PRN 09/21/14 [History Confirmed 04/25/17] Buprenorphine HCl/Naloxone HCl [Suboxone 2 mg-0.5 mg Sl Film] 2 ea SL TID 04/20/17 [History Confirmed 04/20/17] azithromycin 250 mg tablet See Label Instructions PO .COMPLEX #6 tab 04/25/17 [Rx Confirmed 04/25/17] prednisone 20 mg tablet 20 mg PO .COMPLEX 7 Days #10 tab 04/25/17 [Rx Confirmed 04/25/17] PFSH Medical History History of migraine headaches (Acute) Hypertension (Chronic) Surgical History delivery delivered (Acute) H/O sinus surgery (Acute) H/O: hysterectomy (Acute) History of tonsillectomy (Acute) Family History Mother Cancer cervical Father Cancer Throat Grandmother Breast cancer Cancer Brain Stomach Grandfather Cancer Prostate Lung Social History Smoking Status: Former smoker alcohol intake: never substance use type: does not use caffeine: Yes what type of physical activity do you participate in: none seatbelt use: always do you feel safe at home: Yes additional social history: Patient is single and has in home day care HPI Cough: Details: KADIE SWAN, is a 37 F who presents to the office today for wheezing, cough and congestion x 2 weeks. Her Albuterol inhaler has not been helping much. ROS Const Constitutional: No chills or fever(s) Eyes Eyes: No change in vision ENT ENT: No ear pain, sore throat, nasal congestion or nasal discharge Resp Respiratory: Positive for cough, chest congestion and wheezing Cardio Cardiology: No chest pain at rest or chest pain with exertion Gastro GI: No abdominal pain, diarrhea, vomiting or nausea/dyspepsia Musc Musculoskeletal: No back pain or abnormal walking Skin Skin: No rash or change in skin color Neuro Neurology: No confusion, abnormal walking or abnormal speech Psych Psychiatric: No confusion Aller/Imm Allergy/Immunologic: Positive for wheezing Exam Const General: healthy appearing, no acute distress Orientation: oriented x3, oriented to person, oriented to place, oriented to time [facility] Head: normocephalic Ears: external ears normal, TM's normal bilaterally, EAC's normal Eyes General: appearance normal, both eyes and all related structures Conjunctivae: conjunctivae normal Sclera: sclerae normal Pupils: PERRL Neck Neck: no lymphadenopathy Thyroid: thyroid normal Chest Chest palpation AND inspection: normal inspection of the chest Resp Effort AND Inspection: other (no stridor) Auscultation: Bilateral: Expiratory Wheezes Cardio Rate: regular rate Rhythm: regular rhythm GI Inspection: normal to inspection Auscultation: normal bowel sounds Palpation: no hepatosplenomegaly, no splenomegaly, no masses Skin General: no pallor Rashes: no rashes Nails: no clubbing Neuro General: oriented x3, gait normal Extrem General: normal to inspection, no pedal edema, no calf tenderness, normal gait, no edema, no cyanosis, no clubbing, no calf tenderness bilaterally, no pedal edema Psych Mood: congruent mood Affect: normal affect Speech and Movement: speech and movement normal Assessment AND Plan Problems 1. Bronchitis J40 Medications New: prednisone 20 mg PO 2 pills daily x 3 days, then 1 pill daily x 4 days; administer with food or milk 7 days Coding Level of Care Code Off vis,est,level 3 Diagnoses Bronchitis J40 04/25/17 1310 <Electronically signed by Leland ORDOÑEZ> Date Leland ORDOÑEZ Cosigner Signature: Date (if applicable) CC: ALLERGIES ALLERGIES DATE TYPE / CODE NAME / CODE REACTION SEVERITY SOURCE 03/14/2018 Drug duloxetine/F Rash Unknown [place] [facility] Allergy/4160 [id number]([facility] 80051(SNOMED NORM) Repository CT) ENCOUNTERS ENCOUNTERS ADMIT/DISCHARGE ACCOUNT ADMITTING ENCOUNTER LOCATION SOURCE NUMBER CLASS 03/15/2018 [id number] Ambulatory [place] [facility] ing:LABSPEC Repository 03/14/2018/ [id number] Ambulatory BMSBuilding:[facility] [place] [address] 7 [place] Repository 01/18/2018/ [id number] Ambulatory BMSBuilding:B [place] [address] 0 [place].[facility] Repository 10/01/2017 [id number] Ambulatory [place] 8 [facility] ing:HPRAD Repository 10/01/2017/ [id number] Ambulatory BMSBuilding:B [place] [address] 8 [place] Repository 05/07/2017 [id number] Ambulatory [facility] [place] [facility] [place] Repository 05/06/2017/ [id number] Ambulatory [place] [address] 6 [facility] ing:MNC Repository 05/06/2017 [id number] Ambulatory [facility] [place] [facility] [place] Repository 04/25/2017/ [id number] Ambulatory B[facility]Building:[facility] [place] [facility] 6 [place].[facility] Repository PAYERS PAYERS ENCOUNTER GUARANTOR PAYER SUBSCRIBER SOURCE 03/15/2018 SUMMER N Primary SUMMER N [place] [id number] Insurance:CARESOURCEP THOMPSONDOB: [facility] Number: [id number] [id number] Repository [address]Pbm: (330) Date:2018-03-15P O [phone] () [address]ATTN: [place] [address]VR: 03/15/2018 Secondary NOT GIVENUNK [place] Insurance:SELF PAY [facility] Number: Effective Repository Date:2018-03-15 03/14/2018 SUMMER N Primary SUMMER N [place] [id number] Insurance:CARESOURCEP THOMPSONDOB: [facility] Number: [id number], [place] [id number] Repository [address]Wzt: (330) Date:2018-03-14P O [phone] () [address]ATTN: [place] [address]CX: 03/14/2018 Secondary NOT GIVENUNK [place] Insurance:SELF PAY [facility] Number: Effective Repository Date:2018-03-14 01/18/2018 SUMMER N Primary SUMMER N [place] [id number] Insurance:CARESOURCEP THOMPSONDOB: [facility] Number: [id number], [place] [id number] Repository [address]Txg: (330) Date:2018-01-18P O [phone] (HP) [address]ATTN: [place] [address]KV: 01/18/2018 Secondary NOT GIVENUNK [place] Insurance:SELF PAY [facility] Number: Effective Repository Date:2018-01-18 10/01/2017 SUMMER N Primary SUMMER N [place] [id number] Insurance:CARESOURCEP THOMPSONDOB: [facility] Number: [id number], [place] [id number] Repository [address]Nqi: (330) Date:2017-10-01P O [phone] (HP) [address]ATTN: [place] [address]EH: 10/01/2017 Secondary NOT GIVENUNK [place] Insurance:SELF PAY [facility] Number: Effective Repository Date:2017-10-01 10/01/2017 SUMMER N Primary SUMMER N [place] [id number] Insurance:CARESOURCEP THOMPSONDOB: [facility] Number: [id number], [place] [id number] Repository [address]Xxt: (330) Date:2017-10-01P O [phone] (HP) [address]ATTN: [place] [address]KZ: 10/01/2017 Secondary NOT GIVENUNK [place] Insurance:SELF PAY [facility] Number: Effective Repository Date:2017-10-01 05/07/2017 SUMMER N Primary SUMMER N [place] [id number] Insurance:CARESOURCEP THOMPSONDOB: [facility] Number: [id number], [place] [id number] Repository [address]Hai: (330) Date:2017-04-15P O [phone] (HP) [address]ATTN: [place] [address]TK: 05/07/2017 Secondary NOT GIVENUNK [place] Insurance:SELF PAY [facility] Number: Effective Repository Date:2017-05-07 05/06/2017 SUMMER N Primary SUMMER N [place] [id number] Insurance:CARESOURCEP THOMPSONDOB: [facility] Number: [id number], [place] [id number] Repository [address]Bwa: (330) Date:2017-04-15P O [phone] (HP) [address]ATTN: [place] [address]UN: 05/06/2017 Secondary NOT GIVENUNK [place] Insurance:SELF PAY [facility] Number: Effective Repository Date:2017-04-15 05/06/2017 SUMMER N Primary SUMMER N [place] [id number] Insurance:CARESOURCEP THOMPSONDOB: [facility] Number: [id number], [place] [id number] Repository [address]Svr: (330) Date:2017-04-15P O [phone] (HP) [address]ATTN: [place] [address]WX: 05/06/2017 Secondary NOT GIVENUNK [place] Insurance:SELF PAY [facility] Number: Effective Repository Date:2017-05-06 04/25/2017 SUMMER N Primary SUMMER N [place] [id number] Insurance:CARESOURCEP THOMPSONDOB: [facility] Number: [id number], [place] [id number] Repository [address]Tty: (330) Date:2017-04-25P O [phone] (HP) [address]ATTN: [place] [address]VU: 04/25/2017 Secondary NOT GIVENUNK [place] Insurance:SELF PAY [facility] Number: Effective Repository Date:2017-04-25
== END ==
PROVIDERS: Family Provider Family Medicine; PCP Family Medicine; Referring Provider Physician Assistant; Visit Provider Physician Assistant
DX: R51 Headache (principal)
CPT/HCPCS: 81001; 87086

== ENCOUNTER → 2018-04-26 15:13 | Outpatient (CLI) | payer MEDICAID, SELFPAY ==
[2018-04-26 07:36] VITALS: BMI 33.7
== END ==
PROVIDERS: Family Provider Family Medicine; PCP Family Medicine; Referring Provider Physician Assistant Surgical; Visit Provider Physician Assistant Surgical
DX: J02.9 Acute pharyngitis, unspecified (principal)
CPT/HCPCS: 87081

== ENCOUNTER → 2018-05-19 14:09 | Outpatient (CLI) | payer MEDICAID, SELFPAY ==
[2018-05-19 11:41] VITALS: BMI 33.7
== END ==
PROVIDERS: Family Provider Family Medicine; PCP Family Medicine; Referring Provider Physician Assistant; Visit Provider Physician Assistant
DX: J02.9 Acute pharyngitis, unspecified (principal)
CPT/HCPCS: 87081

== ENCOUNTER → 2018-06-09 15:24 | Outpatient (CLI) | payer MEDICAID, SELFPAY ==
[2018-05-19 11:41] VITALS: BMI 33.7
--- NOTE | 2018-06-09 15:26 | RAD_ITS ---
STUDY: X-RAY - ABDOMEN/PELVIS REASON FOR EXAM: Female, 38 years old. Abdominal pain. TECHNIQUE: AP supine and upright views of the abdomen and pelvis. COMPARISON: None. FINDINGS: Normal visualized lung bases. There is a moderate amount of colonic fecal material. There is no demonstrated free abdominal air. The visualized liver, spleen and kidneys are grossly normal in size and morphology. There are calcified phleboliths in the pelvis. Evidence of prior tubal ligation. Normal visualized osseous structures. RAD/Acute Abdomen Inc Chest IMPRESSION: Normal x-ray examination of the abdomen and pelvis. Electronically Signed: Sukhwinder Martinez, at 15:48 EDT , Service support ,
[2018-06-09 17:48] LABS: Absolute Lymphocyte Count 2.05 X10^3/ul (0.83-4.51); Absolute Neutrophil Count 3.1 X10^3/uL (2.0-7.7); Basophil# 0.01 X10^3/uL; Basophil% 0.2 % (0-1); Eosinophil# 0.23 X10^3/uL; Eosinophils% 3.9 % (0-5); Hematocrit 39.7 % (37-47); Hemoglobin 13.1 g/dl (12.0-15.0); Lymphocyte # 2.05 X10^3/ul (4.0); Lymphocyte % 34.6 % (19-41); Mean Corpuscular Volume 84.8 fL (81-99); Mean Platelet Vol. 11.2 fl (6.2-12.0); Monocyte% 8.4 % (0-10); Neutrophil # 3.12 X10^3/uL (2.7-7.7); Neutrophil % 52.7 % (47-70); Platelet Count 222 K/mm3 (150-450); RBC Distribution Width CV 12.8 % (11.6-14.6); RBC Distribution Width SD 38.6 fl (35.1-43.9); Red Blood Count 4.68 M/mm3 (4.2-5.4); White Blood Count 5.9 K/mm3 (4.4-11.0)
[2018-06-09 18:00] LABS: AST(SGOT) 14 U/L (15-37); Alanine Aminotransfer ALT/SGPT 30 U/L (13-56); Albumin, Serum 3.9 g/dL (3.2-5.0); Alkaline Phosphatase 69 U/L (45-117); Anion Gap 6 (5-15); BUN 10 mg/dL (7-18); BUN/Creat Ratio 13.4 RATIO (10-20); Chloride 106 mmol/L (98-107); Creatinine, Serum 0.75 mg/dL (0.55-1.02); EST Glomerular Filtration Rate 92 mL/min (>60); Est Glom Filt Rate - Afr Amer 111 mL/min (>60); Glucose 89 mg/dL (74-106); Protein, Total 7.9 g/dL (6.4-8.2); Sodium Level 140 mmol/L (136-145)
[2018-06-09 18:01] LABS: POSITIVE COUNT NO; POSITIVE DIFFERENTIAL NO; POSITIVE MORPHOLOGY NO
== END ==
PROVIDERS: Family Provider Family Medicine; PCP Family Medicine; Referring Provider Family Medicine; Visit Provider Family Medicine
DX: R10.84 Generalized abdominal pain (principal)
CPT/HCPCS: 36415; 74022; 80053; 85025

== ENCOUNTER → 2018-06-11 07:51 | Outpatient (CLI) | payer MEDICAID, SELFPAY ==
[2018-05-19 11:41] VITALS: BMI 33.7
--- NOTE | 2018-06-11 08:05 | MRI_ITS ---
STUDY: MRI BRAIN WITH AND WITHOUT CONTRAST REASON FOR EXAM: Female, 38 years old. Dysgraphia and memory issues. TECHNIQUE: Standardized multiplanar fat and water weighted pulse sequences were obtained. Dotarem 18 IV was administered for the contrast portion of the examination. COMPARISON: None. FINDINGS: No restricted diffusion to suspect acute or subacute ischemic infarct. No focal signal abnormalities throughout the brain parenchyma. Normal size of the ventricles and extra-axial spaces for the patient's age. Normal white matter tracts of the supratentorial brain. Normal bilateral basal ganglia. Normal thalami. There is no extra-axial fluid accumulation. Normal flow voids within the major intracranial circulation suggesting patency by spin echo criteria. Normal venous enhancement. There is no enhancing intra-axial or extra-axial abnormality. Normal sella turcica, pituitary gland, infundibular stalk, optic chiasm and hypothalamus. Normal tectal plate and pineal gland. Normal midbrain, yue and medulla. Normal cerebellum. Normal basal cisterns. Normal bilateral temporal bones. Normal bilateral internal auditory canals. No demonstrated orbital abnormality, within the constraints of a routine brain study. Prominent benign mucus retention cyst in the left maxillary sinus. Smaller benign mucus retention cyst in the right maxillary sinus. The paranasal sinuses are otherwise normal. Normal calvarium and skull base. Normal visualized soft tissue structures. Normal visualized upper cervical spine. MRI/Brain W/WO Contrast IMPRESSION: 1. Normal unenhanced and enhanced MRI of the brain. 2. Prominent benign mucus retention cyst in the left maxillary sinus and small benign mucus retention cyst in the right maxillary sinus. Electronically Signed: Edwin Rasheed MD at 13:39 EDT , Service support ,
== END ==
PROVIDERS: Family Provider Family Medicine; PCP Family Medicine; Referring Provider Family Medicine; Visit Provider Family Medicine
DX: R27.8 Other lack of coordination (principal)
CPT/HCPCS: 70553; A9575

== ENCOUNTER → 2018-07-21 | Outpatient (CLI) | payer MEDICAID, SELFPAY ==
[2018-07-21 06:42] VITALS: BMI 33.6
--- NOTE | 2018-07-21 10:24 | RAD_ITS ---
STUDY: X-RAY - LEFT FOOT CLINICAL: Female, 38 years old. Pain TECHNIQUE: 3 view(s) of the foot. COMPARISON: None. FINDINGS: Normal talus, calcaneus, and tarsal bones. Normal visualized subtalar, talonavicular, calcaneocuboid, tarsal and tarsometatarsal articulations. Normal metatarsi, likely sclerotic bone island in the second metatarsal head. Normal metatarsophalangeal joint of the great toe. Normal tibial and fibular sesamoid bones. Normal interphalangeal joint of the great toe. Normal phalanges of the great toe. Normal second through fifth metatarsophalangeal joints. Normal interphalangeal joints and phalanges of the lesser toes. The soft tissue structures are unremarkable. RAD/Foot min 3 Views IMPRESSION: No acute findings Electronically Signed: Meng Flores MD at 10:41 EDT , Service support ,
== END | disposition home or self-care (01) ==
LOC: MTRAD 10:21
PROVIDERS: Family Provider Family Medicine; PCP Family Medicine; Referring Provider Family Medicine; Visit Provider Family Medicine
DX: M89.8X7 Other specified disorders of bone, ankle and foot (principal)
CPT/HCPCS: 73630

== ENCOUNTER → 2018-08-02 | Outpatient (CLI) | payer MEDICAID, SELFPAY ==
[2018-07-21 06:42] VITALS: BMI 33.6
== END | disposition home or self-care (01) ==
LOC: SL 23:30
PROVIDERS: Family Provider Family Medicine; PCP Family Medicine; Referring Provider Internal Medicine Critical Care Medicine; Visit Provider Internal Medicine Critical Care Medicine
DX: G47.10 Hypersomnia, unspecified (principal)
CPT/HCPCS: 95810

== ENCOUNTER → 2018-08-31 | Outpatient (CLI) | payer MEDICAID, SELFPAY ==
[2018-07-21 06:42] VITALS: BMI 33.6
== END | disposition home or self-care (01) ==
LOC: SL 20:00
PROVIDERS: Family Provider Family Medicine; PCP Family Medicine; Visit Provider Nurse Practitioner Acute Care
DX: G47.33 Obstructive sleep apnea (adult) (pediatric) (principal)
CPT/HCPCS: 95811

== ENCOUNTER → 2018-09-06 | Outpatient (CLI) | payer MEDICAID, SELFPAY ==
[2018-07-21 06:42] VITALS: BMI 33.6
== END | disposition home or self-care (01) ==
LOC: SL 11:11
PROVIDERS: Family Provider Family Medicine; PCP Family Medicine; Referring Provider Nurse Practitioner Acute Care; Visit Provider Nurse Practitioner Acute Care
DX: G47.10 Hypersomnia, unspecified (principal)

== ENCOUNTER → 2018-10-18 | Outpatient (CLI) | payer MEDICAID, SELFPAY ==
[2018-10-18 12:12] VITALS: BMI 33.6
[2018-10-18 14:11] LABS: Bacteria 0 SEEN /hpf (None Seen); Mucous, Urine 0 SEEN /hpf (<or=2+); Red Blood Cells-Urine 0 SEEN /hpf (0-5); White Blood Cells 0 SEEN /hpf (0-5)
[2018-10-18 14:29] LABS: Glucose, Dipstick Normal (Normal); Ketone-Dipstick Negative (Negative); Leukocyte Esterase-Dipstick Negative /ul (Negative); Nitrite-Dipstick Positive (Negative); Occult Blood-Urine Negative /ul (Negative); Protein-Dipstick 30 mg/dl (Negative); Urine Clarity Clear (Clear); Urine Urobilinogen 4 mg/dl (Normal)
[2018-10-18 14:36] LABS: Color, Urine SEE COMMENT BELOW (Yellow); Urine Bilirubin Dipstick 3 mg/dL (Negative)
[2018-10-18 14:39] LABS: Squamous Epithelial Cells - UA 0-5 SEEN /hpf (5-10)
== END | disposition home or self-care (01) ==
LOC: LABSPEC 13:54
PROVIDERS: Family Provider Family Medicine; PCP Family Medicine; Referring Provider Physician Assistant Surgical; Visit Provider Physician Assistant Surgical
DX: R30.0 Dysuria (principal)
CPT/HCPCS: 81001; 87081; 87086

== ENCOUNTER → 2018-11-29 | Outpatient (CLI) | payer MEDICAID, SELFPAY ==
[2018-10-31 07:45] VITALS: BMI 33.3
== END | disposition home or self-care (01) ==
LOC: SL 14:41
PROVIDERS: Family Provider Family Medicine; PCP Family Medicine; Referring Provider Nurse Practitioner Acute Care; Visit Provider Nurse Practitioner Acute Care
DX: G47.30 Sleep apnea, unspecified (principal)
CPT/HCPCS: 98960; G0463

== ENCOUNTER → 2019-01-30 10:13 | Outpatient (CLI) | payer MEDICAID, SELFPAY ==
[2018-12-27 08:46] VITALS: BMI 33.1
--- NOTE | 2019-01-30 10:23 | RAD_ITS ---
STUDY: X-RAY CHEST REASON FOR EXAM: Female, 39 years old. Chest pain for 6 months, shortness of breath TECHNIQUE: Two view of the chest were performed COMPARISON: 05 June 2016 FINDINGS: Lungs are clear. There is no pneumothorax, pulmonary edema, pleural effusions or cardiomegaly. Osseous structures are intact. There is no gas under the diaphragms. [ ] RAD/Chest PA and Lateral IMPRESSION: 1. No acute cardiorespiratory disease. [ ] Electronically Signed: Gutierrez Ibrahim, at 16:49 EST Tel , Service support ,
[2019-01-30 10:43] LABS: Absolute Lymphocyte Count 2.09 X10^3/uL (0.83-4.51); Absolute Neutrophil Count 3.2 X10^3/uL (2.0-7.7); Basophil# 0.03 X10^3/uL; Basophil% 0.5 % (0-1); Eosinophils% 1.7 % (0-5); Hematocrit 46.4 % (37-47); Hemoglobin 15.5 g/dL (12.0-15.0); Lymphocyte # 2.09 X10^3/ul (4.0); Lymphocyte % 34.8 % (19-41); Mean Corp Hgb Conc 33.4 g/dL (32-36); Mean Corpuscular Hgb 28.1 pg (27.0-32.0); Mean Corpuscular Volume 84.2 fL (81-99); Mean Platelet Vol. 12.4 fl (6.2-12.0); Monocyte# 0.57 X10^3/uL; Monocyte% 9.5 % (0-10); NRBC Flagged by Analyzer 0 % (0-5); Neutrophil # 3.21 X10^3/uL (2.7-7.7); Neutrophil % 53.3 % (47-70); Platelet Count 143 K/mm3 (150-450); RBC Distribution Width CV 12.1 % (11.6-14.6); Red Blood Count 5.51 M/mm3 (4.2-5.4)
[2019-01-30 11:28] LABS: AST(SGOT) 18 U/L (15-37); Alanine Aminotransfer ALT/SGPT 30 U/L (13-56); Albumin, Serum 4.1 g/dL (3.2-5.0); Alkaline Phosphatase 68 U/L (45-117); Anion Gap 9 (5-15); BUN 13 mg/dL (7-18); BUN/Creat Ratio 14.5 RATIO (10-20); Calcium,Total 9.7 mg/dL (8.5-10.1); Chloride 99 mmol/L (98-107); EST Glomerular Filtration Rate 74 mL/min (>60); Est Glom Filt Rate - Afr Amer 90 mL/min (>60); Globulin 4.1 g/dL (2.2-4.2); Glucose 107 mg/dL (74-106); Magnesium 2.1 mg/dL (1.6-2.6); Potassium 3.6 mmol/L (3.5-5.1); Protein, Total 8.2 g/dL (6.4-8.2); Sodium Level 137 mmol/L (136-145); Thyroid Stim Hormone (TSH) 1.01 uIU/mL (0.358-3.74)
[2019-01-30 14:24] LABS: Hemoglobin A1c 5.2 % (4.2-6.3)
== END ==
PROVIDERS: Family Provider Family Medicine; PCP Family Medicine; Referring Provider Family Medicine; Visit Provider Family Medicine
DX: R06.02 Shortness of breath (principal); R73.09 Other abnormal glucose; I10 Essential (primary) hypertension
CPT/HCPCS: 36415; 71046; 80053; 83036; 83735; 84443; 85025

== ENCOUNTER → 2019-02-14 13:46 | Outpatient (CLI) | payer MEDICAID, SELFPAY ==
[2019-02-14 12:16] VITALS: BMI 33.1
== END ==
PROVIDERS: Family Provider Family Medicine; PCP Family Medicine; Referring Provider Physician Assistant Surgical; Visit Provider Physician Assistant Surgical
DX: J02.9 Acute pharyngitis, unspecified (principal)
CPT/HCPCS: 87070

== ENCOUNTER → 2019-03-03 17:00 | Outpatient (CLI) | payer MEDICAID, SELFPAY ==
[2019-03-02 10:02] VITALS: BMI 33.1
== END ==
PROVIDERS: Family Provider Family Medicine; PCP Family Medicine; Referring Provider Family Medicine; Visit Provider Family Medicine
DX: J02.9 Acute pharyngitis, unspecified (principal)
CPT/HCPCS: 87070

== ENCOUNTER → 2019-04-13 08:28 | Outpatient (CLI) | payer MEDICAID, SELFPAY ==
[2019-03-02 10:02] VITALS: BMI 33.1
--- NOTE | 2019-04-13 08:31 | ECHOD_ITS ---
Reason For Study: LAE Procedure This was a 2D Doppler, Color Flow transthoracic echocardiogram. Exam performed in department. Left Ventricle Normal LV size. The estimated ejection fraction is 65 %. Normal diastology for age. No regional wall motion abnormalities noted. Right Ventricle Normal RV size. Normal systolic function. Atria Normal left atrium. Normal right atrium. No doppler evidence for ASD. Mitral Valve There is no mitral valve stenosis. Trivial mitral valve insufficiency. Tricuspid Valve There is no tricuspid stenosis. Trivial tricuspid valve insufficiency. Pulmonary artery systolic pressure is 25 mmHg. Aortic Valve Trisinus/trileaflet aortic valve. There is no aortic stenosis. Trivial aortic valve insufficiency. Pulmonic Valve There is no pulmonic valvular stenosis. No pulmonic valve insufficiency. Great Vessels Normal aortic root. Pericardium/Pleural No pericardial effusion. MMode/2D Measurements & Calculations LVIDd: 5.1 cm IVSd: 0.78 cm Ao root diam: 3.2 cm LVIDs: 3.6 cm LVPWd: 0.83 cm RVDd: 3.3 cm FS: 29.2 % LAV(MOD-bp): 72.0 ml LA A4 area: 23.7 cm2 LA dimension(2D): 4.1 cm LAV(MOD-bp) Indexed: 37.2 ml/m2 LAV(MOD-sp2): 57.7 ml LAV(MOD-sp4): 75.4 ml RA A4 area: 16.7 cm2 Time Measurements MV dec time: 0.19 sec Doppler Measurements & Calculations MV E max shyam: 80.0 cm/sec Lat Peak E' Shyam: 12.6 cm/sec Med Peak E' Shyam: 10.1 cm/sec MV A max shyam: 64.8 cm/sec E/E' lat: 6.4 E/E' med: 7.9 MV E/A: 1.2 Ao V2 max: 131.9 cm/sec LV V1 max: 130.4 cm/sec PA V2 max: 109.6 cm/sec Ao max P.0 mmHg LV V1 max P.8 mmHg TR max shyam: 249.6 cm/sec TR max P.9 mmHg Interpretation Summary Normal diastology for age. Trivial mitral valve insufficiency. Trivial tricuspid valve insufficiency. Pulmonary artery systolic pressure is 25 mmHg. Trivial aortic valve insufficiency. The estimated ejection fraction is 65 %. Ordering Physician: Kevin Ashford Referring Physician: Kevin Ashford Performed By: Kaycee Ku, BRANDIE, RVT
== END ==
PROVIDERS: Family Provider Family Medicine; PCP Family Medicine; Referring Provider Family Medicine; Visit Provider Family Medicine
DX: I51.7 Cardiomegaly (principal)
CPT/HCPCS: 93306

== ENCOUNTER → 2019-04-27 09:06 | Outpatient (CLI) | payer MEDICAID, SELFPAY ==
[2019-04-27 09:06] VITALS: BMI 33.3
[2019-04-27 10:18] LABS: Absolute Lymphocyte Count 1.75 X10^3/uL (0.83-4.51); Absolute Neutrophil Count 3.2 X10^3/uL (2.0-7.7); Basophil# 0.03 X10^3/uL; Basophil% 0.5 % (0-1); Eosinophil# 0.11 X10^3/uL; Hemoglobin 12.7 g/dL (12.0-15.0); Lymphocyte # 1.75 X10^3/ul (4.0); Mean Corp Hgb Conc 33.4 g/dL (32-36); Mean Corpuscular Hgb 27.7 pg (27.0-32.0); Mean Platelet Vol. 11.8 fl (6.2-12.0); Monocyte# 0.38 X10^3/uL; Monocyte% 6.9 % (0-10); NRBC Flagged by Analyzer 0 % (0-5); Neutrophil # 3.19 X10^3/uL (2.7-7.7); Neutrophil % 58.4 % (47-70); Platelet Count 155 K/mm3 (150-450); RBC Distribution Width CV 12.1 % (11.6-14.6); RBC Distribution Width SD 36.5 fl (35.1-43.9); Red Blood Count 4.58 M/mm3 (4.2-5.4); White Blood Count 5.5 K/mm3 (4.4-11.0)
[2019-04-27 10:49] LABS: ALB/GLOB Ratio 1.1 RATIO (0.9-2.4); AST(SGOT) 25 U/L (15-37); Alanine Aminotransfer ALT/SGPT 43 U/L (13-56); Albumin, Serum 3.9 g/dL (3.2-5.0); Alkaline Phosphatase 64 U/L (45-117); Anion Gap 7 (5-15); BUN 12 mg/dL (7-18); BUN/Creat Ratio 15.4 RATIO (10-20); Calcium,Total 9.6 mg/dL (8.5-10.1); Chloride 106 mmol/L (98-107); Creatinine, Serum 0.78 mg/dL (0.55-1.02); EST Glomerular Filtration Rate 88 mL/min (>60); Est Glom Filt Rate - Afr Amer 106 mL/min (>60); Ferritin 123 ng/mL (8-252); Globulin 3.6 g/dL (2.2-4.2); Glucose 106 mg/dL (74-106); Iron 74 ug/dL (50-170); Iron Binding Capacity,Total 340 ug/dL (250-450); Potassium 3.9 mmol/L (3.5-5.1); Protein, Total 7.5 g/dL (6.4-8.2); Sodium Level 139 mmol/L (136-145)
[2019-04-27 12:15] LABS: Hemoglobin A1c 5.4 % (4.2-6.3)
[2019-04-28 13:17] LABS: Transferrin 257 mg/dL (200-370)
== END ==
PROVIDERS: PCP Family Medicine; Referring Provider Family Medicine; Visit Provider Family Medicine
DX: D75.1 Secondary polycythemia (principal); I10 Essential (primary) hypertension; R73.09 Other abnormal glucose
CPT/HCPCS: 36415; 80053; 82728; 83036; 83540; 83550; 84466; 85025

== ENCOUNTER 2019-10-10 08:25 | Day surgery (SDC) | payer MEDICAID, SELFPAY ==
[2019-09-14 10:04] VITALS: BMI 33.3
--- NOTE | 2019-10-10 08:36 | HP.PCM_ITS ---
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 Required: No Is patient in pain?: No Allergies duloxetine [From Cymbalta] Allergy (Verified 09/14/19 09:55) Rash sulfamethoxazole [From Bactrim] Adverse Reaction (Mild, Verified 09/14/19 09:55) Headache and elevated BP trimethoprim [From Bactrim] Adverse Reaction (Mild, Verified 09/14/19 09:55) Headache and elevated BP Medications cholecalciferol (vitamin D3) 1,250 mcg (50,000 unit) capsule 50,000 unit PO QWEEK #4 cap 10/31/18 [History Confirmed 09/14/19] amlodipine 10 mg tablet 10 mg PO ONCE #30 tab 09/14/19 [History Confirmed 09/14/19] buprenorphine 2 mg-naloxone 0.5 mg sublingual tablet 1 tab SUBLINGUAL TID tab 09/14/19 [History Confirmed 09/14/19] hydrochlorothiazide 25 mg tablet 25 mg PO DAILY #30 tab 09/14/19 [History Confirmed 09/14/19] sumatriptan succinate 6 mg/0.5 mL subcutaneous pen injector ml SC 09/14/19 [History Confirmed 09/14/19] [facility] Medical History Acid reflux (Acute) Blood in stool (Acute) Constipation (Acute) Diarrhea (Acute) Vomiting (Acute) Sleep apnea (Acute) Abdominal pain (Acute) Dysgraphia (Chronic) Fatigue (Chronic) Suspected sleep apnea (Chronic) History of migraine headaches (Chronic) Hypertension (Chronic) URI (upper respiratory infection) (Acute) Bronchitis (Acute) Sinusitis (Acute) Pharyngitis, acute (Acute) Urinary frequency (Acute) Headache (Acute) Gastroenteritis (Acute) Acute vomiting (Acute) Right foot strain (Acute) Left ovarian cyst (Acute) Chronic pelvic pain in female (Acute) Surgical History History of left oophorectomy (Resolved) H/O: hysterectomy (Resolved) delivery delivered (Resolved) History of tonsillectomy (Resolved) H/O sinus surgery (Resolved) Family History Mother Cancer cervical Father Cancer Throat Grandmother Breast cancer Cancer Brain Stomach Grandfather Cancer Prostate Lung Social History (Updated 09/14/19 @ 10:[address] Fidel Acuna MD) alcohol intake: never substance use type: does not use caffeine: Yes what type of physical activity do you participate in: none seatbelt use: always do you feel safe at home: Yes additional social history: Patient is single and has in home day care HPI HPI HPI: KADIE REYES, is a 39 F who presents to the office today for surgical consultation regarding abdominal pain and rectal bleeding and diarrhea. The patient is referred by her primary care is in Dr Kevin Ashford written copy of my surgical consult recommendations will return to him. She states that she has not felt well for at least 6 months. Particular over the past 4 months she claims that about every 2 weeks she will have episodes of severe mid generalized abdominal pain feeling like she is going to explode lasting for approximately 1 to 2 hours then followed by severe diarrhea. She will notice some dark red blood within the diarrhea. She also claims that her stools now appear to have more mucus present within them. She did have laboratory obtained on April 27, 2019 showing a white blood cell count of 5.5 with a hemoglobin 12.7 hematocrit 38 platelet count 155,000 with a normal differential at that time. Glucose was 106 BUN 12 and creatinine 0.78 with normal liver function test. She notes that family history is notable for history of colon polyps in both her mother and her father. She denies any family history of ulcerative colitis or Crohn's. Her body habitus is approximately 200 pounds. About 6 weeks ago she tried to eliminate sugar from her diet. 2 weeks ago she started on the keto diet. All of her symptoms anteceded these changes. She has had a history of C-sections x2 previous hysterectomy and a previous partial left oophorectomy. She does not require estrogen replacement therapy. Her most recent procedure being the oophorectomy was done for large cystic disease and pain. Her pain associated with that was left lower quadrant. She claims that her current pain is completely different from those episodes. 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 HPI HPI HPI: KADIE REYES, is a 39 F who presents to the office today for ROS General General: Yes fatigue; no weight change, appetite, colon cancer, breast cancer or weakness HEENT HEENT: No difficulty swallowing, eye injury, eye surgery, swollen glands or hoarseness Endo Endocrine: No thyroid disease, diabetes mellitus, thyroid cancer, Hair loss, heat intolerance or cold intolerance Skin Skin: Yes rash; no changing moles Musc Musculoskeletal: No back problems, arthritis, rheumatoid arthritis, gout or joint pain Cardio Cardiovascular: Yes high blood pressure; no murmur, pacemaker, heart disease, atrial fibrillation, heart attack, heart stent, palpitations, shortness of breat with exertion or chest pain Psych Psychiatric: Yes anxiety; no depression or hearing voices Resp Respiratory: Yes shortness of breath, Yes sleep apnea, No cough, No COPD, No asthma, No emphysema, No wheezing Gastro Gastrointestinal: Yes abdominal pain, Yes nausea or vomiting, Yes diarrhea, Yes constipation, Yes blood in stool, Yes acid reflux, No hemorrhoids, No ulcers, No gallbladder problem, Yes black,tarry stools Maxim Hematologic: No blood thinners, No blood disorders, No bleeding, No anemia, No blood clots Neuro Neurologic: No weakness Exam Const General: cooperative, healthy appearing, comfortable Nutritional Appearance: obese Orientation: alert, awake, oriented x3 HENMT Head: normal to inspection Eyes General: appearance normal, both eyes and all related structures Resp Effort & Inspection: normal respiratory effort Auscultation: clear to auscultation bilaterally Cardio Rate: regular rate Rhythm: regular rhythm Heart Sounds: no murmurs GI Palpation: soft Auscultation: normal bowel sounds Musc Cervical Spine: normal cervical lordosis Neuro Cognition: normal cognition Extrem General: no calf tenderness Psych Affect: normal affect Assessment & Plan Problems 1. Generalized abdominal pain R10.84 2. Diarrhea, unspecified type R19.7 3. Rectal bleeding K62.5 Plan 39-year-old female with intermittent although frequent episodes of severe abdominal pain followed by diarrhea and what sounds like rectal bleeding. Etiology not determined. I do recommend to the patient a colonoscopy with possible biopsy or polypectomy as indicated. She is aware of the technique, benefit, risk of alternatives. Because of her previous history I will utilize monitored anesthesia care in order to avoid narcotics. I will strongly consider random colonic biopsies in addition because of the diarrhea component. I have further instructed the patient that if the colonoscopy is not revealing then I would consider recommending to her a abdominal pelvic CT scan obtained at the time of her severe pain. This could require a urgent emergency room visit at the time of her distress. She has had an opportunity to ask and have questions answered. I very much appreciate the kind opportunity of assisting with her surgical care. CC: Dr Kevin Acuna M.D., F.A.C.S. Coding Level of Care Code 98004 Diagnoses Generalized abdominal pain R10.84 ??Abdominal location: generalized Diarrhea, unspecified type R19.7 ??Diarrhea type: unspecified type Rectal bleeding K62.5 This patient was scheduled for colonoscopy 5 days ago. Apparently she did not have good results from the bowel prep and so she had to be rescheduled. She is aware of the technique, benefit risk, alternatives. We will proceed as noted. Fidel Acuna M.D., F.A.C.S. Procedure Criteria Procedure Type: Elective COVID Risk Discussion: The surgeon/proceduralist and patient have discussed in detail the risk of exposure to and/or potential harm posed by the COVID-19 virus with having a surgery/procedure at this time versus the risk of delaying the surgery/procedure. It is not possible to know either the risk of delaying the surgery or procedure or chance of getting an infection with perfect accuracy, but a joint decision was made between the patient and the surgeon/proceduralist to proceed at this time with the scheduled surgery/procedure as indicated on the consent form.
[2019-10-10 08:51] VITALS: BP 131/86; PULSE 71; RESP 15; TEMP 37.2; O2SAT 100; BMI 34.3
[2019-10-10] MEDS: Lactated Ringers 1,000 ML 100 ML IV (09:01)
--- NOTE | 2019-10-10 09:30 | COLBX_PTH ---
PATIENT: KADIE REYES LOC: EN U#:[id number] AGE/SX: 39/F ROOM: RE10/10/[address]: Dr. Fidel Acuna MD : 1980 BED: DIS: 10/10/2019 SPEC #: [id number] RECD: 10/10/19 12:25 STATUS: VIVEK JAMES #: [id number] SHAN: 10/10/19 09:[address]: Fidel Acuna DEPT: SURGICAL PATHOLOGY RECD BY: Kevin Mcnally ENTERED: 10/10/19 13:22 SP TYPE: COLON BX KATHY DR: Dr. Kevin Ashford MD Tissues: COLON BIOPSY Procedures: Surgery Specimen Level IV HEADER OPERATION: Colonoscopy (MAC) PRE-OP DIAGNOSIS: Rectal bleeding TISSUE SUBMITTED: Random colonic biopsy MICROSCOPIC DIAGNOSIS Colon, random biopsy: Mild melanosis coli. AM:matt 10/11/19 MICROSCOPIC DESCRIPTION Slides are reviewed. GROSS DESCRIPTION Received in fixative is one container labeled with the patient's name and designated random colon biopsy. The specimen consists of multiple irregular fragments of light rodriges soft tissue that in aggregate measure 1.5 x 0.5 x 0.1 cm. The specimen is totally submitted in one cassette. / SJ:matt 10/10/19 TC:5 CPT: 96010
--- NOTE | 2019-10-10 10:09 | OP.COLON_ITS ---
Patient Name: Linda Mak Procedure Date: 10/10/2019 9:42 AM Date of : 1980 Age: 39 Procedure: Colonoscopy Indications: Abdominal pain in the left lower quadrant Providers: Fidel Acuna MD Referring MD: Kevin Ashford Medicines: See the Anesthesia note for documentation of the administered medications Patient Profile: Last Colonoscopy: none. The patient's first colonoscopy is today. Complications: No immediate complications. Procedure: Pre-Anesthesia Assessment: - Prior to the procedure, a History and Physical was performed, and patient medications and allergies were reviewed. The patient's tolerance of previous anesthesia was also reviewed. The risks and benefits of the procedure and the sedation options and risks were discussed with the patient. All questions were answered, and informed consent was obtained. Prior Anticoagulants: The patient has taken no previous anticoagulant or antiplatelet agents. ASA Grade Assessment: II - A patient with mild systemic disease. After reviewing the risks and benefits, the patient was deemed in satisfactory condition to undergo the procedure. After I obtained informed consent, the scope was passed under direct vision. Throughout the procedure, the patient's blood pressure, pulse, and oxygen saturations were monitored continuously. The pediatric colonoscope was introduced through the anus and advanced to the cecum, identified by appendiceal orifice and ileocecal valve. The colonoscopy was performed without difficulty. The patient tolerated the procedure well. The quality of the bowel preparation was good. The ileocecal valve and the appendiceal orifice were photographed. Scope In: 9:53:21 AM Scope Withdrawal Time 0 hours 6 minutes 23 seconds Scope Out: 10:04:28 AM Total Procedure Duration Time 0 hours 11 minutes 7 seconds Findings: Hemorrhoids were found on perianal exam. The colon (entire examined portion) appeared normal. Biopsies for histology were taken with a cold forceps from the entire colon for evaluation of microscopic colitis. Impression: - Hemorrhoids found on perianal exam. - The entire examined colon is normal. Biopsied. Recommendation: - Discharge patient to home. - Resume previous diet. - Continue present medications. - Repeat colonoscopy at age 50 for screening purposes. - Telephone my office for pathology results in 1 week. Consider abdominal/pelvic CT scan at time of recurrent pain Procedure Code(s): --- Professional --- 82375, Colonoscopy, flexible; with biopsy, single or multiple Diagnosis Code(s): --- Professional --- K64.9, Unspecified hemorrhoids R10.32, Left lower quadrant pain CPT copyright 2017 [employer]. All rights reserved. The codes documented in this report are preliminary and upon him coder review may be revised to meet current compliance requirements. Fidel Acuna MD 10/10/2019 10:08:57 AM This report has been signed electronically. Number of Addenda: 0 Note Initiated On: 10/10/2019 9:42 AM
[2019-10-10 10:10] VITALS: BP 106/61; BP 131/86; PULSE 69; RESP 16; TEMP 36.6; O2SAT 100
--- NOTE | 2019-10-10 10:10 | OP.CCLET_ITS ---
10/10/2019 Kevin Ashford [address] [place] [address] Re : Colonoscopy procedure for Summer Mak Dear Dr. Ashford This procedure was performed on Thursday, October 10, 2019. My impressions and recommendations are as follows: Impressions : - Hemorrhoids found on perianal exam. - The entire examined colon is normal. Biopsied. Recommendations : - Discharge patient to home. - Resume previous diet. - Continue present medications. - Repeat colonoscopy at age 50 for screening purposes. - Telephone my office for pathology results in 1 week. Consider abdominal/pelvic CT scan at time of recurrent pain My findings are described in the full procedure note, which is enclosed. If I can be of further assistance, please feel free to contact me at Doctor phone number(s): Work: . Sincerely, Fidel Acuna MD 10/10/2019 10:08:57 AM This report has been signed electronically.
[2019-10-10 10:14] VITALS: BP 102/62; BP 131/86; PULSE 67; RESP 14; O2SAT 100
[2019-10-10 10:19] VITALS: BP 109/62; BP 131/86; PULSE 62; RESP 14; O2SAT 99
[2019-10-10 10:25] VITALS: BP 108/66; BP 131/86; PULSE 60; RESP 14; TEMP 36.3; O2SAT 100
[2019-10-10 10:49] VITALS: BP 131/86
== END 2019-10-10 10:50 | disposition home or self-care (01) ==
LOC: EN 08:26 → AC 08:27
PROVIDERS: Anesthesiology; PCP Family Medicine; Referring Provider Family Medicine; Visit Provider Surgery
PROC: 0DJD8ZZ Inspection of Lower Intestinal Tract, Via Natural or Artificial Opening Endoscopic (ICD-10-PCS; CPT 45378; principal; 2019-10-10 09:25)
DX: K63.89 Other specified diseases of intestine (principal); K64.9 Unspecified hemorrhoids; Z11.59 Encounter for screening for other viral diseases; I10 Essential (primary) hypertension; K21.9 Gastro-esophageal reflux disease without esophagitis; G47.30 Sleep apnea, unspecified; G43.909 Migraine, unspecified, not intractable, without status migrainosus; Z86.2 Personal history of diseases of the blood and blood-forming organs and certain disorders involving the immune mechanism; Z79.899 Other long term (current) drug therapy; Z87.891 Personal history of nicotine dependence
CPT/HCPCS: 45380; 87635; 88305; G2023; J7120; J2405; U0003

== ENCOUNTER → 2019-12-11 | Outpatient (CLI) | payer MEDICAID, SELFPAY ==
[2019-12-15 12:56] LABS: HPV Reflexed? NOT INDICATED
== END | disposition home or self-care (01) ==
PROVIDERS: PCP Family Medicine; Referring Provider Family Medicine; Visit Provider Family Medicine
DX: Z01.419 Encounter for gynecological examination (general) (routine) without abnormal findings (principal)
CPT/HCPCS: 88175; G0145

== ENCOUNTER → 2020-04-05 10:15 | Outpatient (CLI) | payer MEDICAID, SELFPAY ==
[2020-04-05 12:46] LABS: AST(SGOT) 24 U/L (15-37); Alanine Aminotransfer ALT/SGPT 41 U/L (13-56); Albumin, Serum 3.9 g/dL (3.2-5.0); Alkaline Phosphatase 65 U/L (45-117); Anion Gap 8 (5-15); BUN 15 mg/dL (7-18); BUN/Creat Ratio 20.1 RATIO (10-20); Calcium,Total 9.3 mg/dL (8.5-10.1); Chloride 100 mmol/L (98-107); Creatinine, Serum 0.75 mg/dL (0.55-1.02); EST Glomerular Filtration Rate 91 mL/min (>60); Est Glom Filt Rate - Afr Amer 110 mL/min (>60); Globulin 3.8 g/dL (2.2-4.2); Glucose 102 mg/dL (74-106); Potassium 2.9 mmol/L (3.5-5.1); Protein, Total 7.7 g/dL (6.4-8.2); Sodium Level 137 mmol/L (136-145)
== END ==
PROVIDERS: PCP Family Medicine; Visit Provider Family Medicine
DX: I10 Essential (primary) hypertension (principal)
CPT/HCPCS: 36415; 80053

== ENCOUNTER → 2020-06-17 11:25 | Outpatient (CLI) | payer MEDICAID, SELFPAY ==
[2020-06-04 10:38] VITALS: BMI 36.4
--- NOTE | 2020-06-17 11:30 | BI_ITS ---
MAMMOGRAPHY - BILATERAL SCREENING REASON FOR EXAM: Female, 40 years old. Routine annual screening examination. PERTINENT HISTORY: Grandmother with breast cancer. TECHNIQUE: Digital bilateral breast janina (3D mammographic acquisition) in the CC and MLO projections. 2-D mediolateral oblique (MLO) and craniocaudad (CC) views of both breasts were obtained. CAD: Full Field Digital Mammography with Computer Added Detection was performed. COMPARISON: Comparison is made with prior outside examination dated 10/27/2012. FINDINGS: Breast Composition: The breasts are heterogeneously dense, which may obscure small masses. There are no dominant masses or suspicious calcifications. Stable benign-appearing bilateral axillary lymph nodes. No other significant abnormalities are identified. There has been no significant change since the prior study. BI/SCREENING MAMM (CAD), BILAT IMPRESSION: Stable bilateral screening mammogram. Yearly follow-up mammogram recommended. (A) ASSESSMENT CATEGORY: BIRADS Category 2: Benign. A letter regarding these results will be sent to the patient by the facility within 30 days. Approximately 10% of breast cancers are not detected by mammography. A normal mammogram should not delay biopsy of a clinically suspicious abnormality. [id number] Electronically Signed: Sukhwinder Martinez MD at 8:01 EDT , Service support ,
== END ==
PROVIDERS: PCP Family Medicine; Referring Provider Family Medicine; Visit Provider Family Medicine
DX: Z12.31 Encounter for screening mammogram for malignant neoplasm of breast (principal)
CPT/HCPCS: 77067

== ENCOUNTER → 2020-07-31 11:40 | Outpatient (CLI) | payer MEDICAID, SELFPAY ==
[2020-06-04 10:38] VITALS: BMI 36.4
[2020-07-31 15:43] LABS: ALB/GLOB Ratio 1.1 RATIO (0.9-2.4); AST(SGOT) 43 U/L (15-37); Alanine Aminotransfer ALT/SGPT 92 U/L (13-56); Alkaline Phosphatase 65 U/L (45-117); Anion Gap 7 (5-15); BUN 17 mg/dL (7-18); BUN/Creat Ratio 22.3 RATIO (10-20); Calcium,Total 9.5 mg/dL (8.5-10.1); Chloride 102 mmol/L (98-107); Creatinine, Serum 0.76 mg/dL (0.55-1.02); EST Glomerular Filtration Rate 89 mL/min (>60); Est Glom Filt Rate - Afr Amer 108 mL/min (>60); Globulin 3.7 g/dL (2.2-4.2); Glucose 101 mg/dL (74-106); Potassium 3.6 mmol/L (3.5-5.1); Protein, Total 7.7 g/dL (6.4-8.2); Sodium Level 137 mmol/L (136-145); Thyroid Stim Hormone (TSH) 1.47 uIU/mL (0.358-3.74)
[2020-08-01 14:25] LABS: Hepatitis B Surface Antibody Reactive; Hepatitis B Surface Antigen Non-Reactive (Nonreactive); Hepatitis C Antibody Non-Reactive (Nonreactive)
== END ==
PROVIDERS: PCP Family Medicine; Referring Provider Family Medicine; Visit Provider Family Medicine
DX: R63.5 Abnormal weight gain (principal); R79.89 Other specified abnormal findings of blood chemistry
CPT/HCPCS: 36415; 80053; 84439; 84443; 86706; 86803; 87340

== ENCOUNTER 2020-10-19 18:25 | Emergency (ER) | payer MEDICAID, SELFPAY ==
[2020-08-05 12:37] VITALS: BMI 36.4
[2020-10-19 18:27] VITALS: BP 148/89; PULSE 64; RESP 14; TEMP 35.8; O2SAT 100; BMI 36.3
--- NOTE | 2020-10-19 18:40 | EKG12_ITS ---
Test Reason : CP Blood Pressure : / mmHG Vent. Rate : 068 BPM Atrial Rate : 068 BPM P-R Int : 152 ms QRS Dur : 092 ms QT Int : 392 ms P-R-T Axes : 047 031 021 degrees QTc Int : 416 ms Normal sinus rhythm with sinus arrhythmia Normal ECG Confirmed by JARROD HINKLE, BARBARA ([id number]), continuity editor LEI WANG ([id number]) on 10/22/2020 9:38:50 AM Referred By: MARY Confirmed By:BARBARA GARAY MD
[2020-10-19 18:44] VITALS: BP 133/86; PULSE 64; RESP 14; O2SAT 97; O2SAT 98
--- NOTE | 2020-10-19 18:51 | ED.VIS.CHEST ---
HPI History of Present Illness Chief Complaint: Chest Pain Informant: patient Narrative Narrative: Patient presents with 2 days of an area of chest pain over by her left pectoralis muscle. She states it is almost a little tingly right in that area too. Does not radiate. No pain elsewhere. She is not short of breath. She is not coughing. No hemoptysis. It is sore to press on it. She does a lot of lifting and pulling at work but does not recall any specific event. No numbness or tingling down her arm at all. Is just local. She has high blood pressure but no history of diabetes cholesterol smoking or family history of heart disease. She has no personal family history of DVT or PE. She has had no recent travel immobilization or surgery. She is on no hormonal therapy and has had a hysterectomy. [facility] Medical History (Updated 10/19/20 @ 19:[address] Gunner Fong MD) Abdominal pain Acid reflux Acute vomiting Blood in stool Bronchitis Chronic pelvic pain in female Constipation Diarrhea Dysgraphia Fatigue Gastroenteritis Headache History of migraine headaches Hypertension Left ovarian cyst Pharyngitis, acute Rectal bleeding Right foot strain Sinusitis Sleep apnea Suspected sleep apnea URI (upper respiratory infection) Urinary frequency Vomiting Home Medications cholecalciferol (vitamin D3) 1,250 mcg (50,000 unit) capsule 0 unit PO DAILY #4 cap 10/31/18 [History Last Taken Unknown] amlodipine 10 mg tablet 10 mg PO DAILY #30 tab 09/14/19 [History Last Taken Unknown] buprenorphine 2 mg-naloxone 0.5 mg sublingual tablet 1 tab SUBLINGUAL TID tab 09/14/19 [History Last Taken Unknown] hydrochlorothiazide 25 mg tablet 25 mg PO DAILY #30 tab 09/14/19 [History Last Taken Unknown] sumatriptan succinate 6 mg/0.5 mL subcutaneous pen injector 6 mg SC PRN PRN 09/14/19 [History Last Taken Unknown] multivitamin 1 ea PO DAILY 10/02/19 [History Last Taken Unknown] potassium chloride 20 meq PO BID #14 tab 10/19/20 [Rx Last Taken Unknown] prednisone 40 mg PO DAILY 10/19/20 [History Last Taken Unknown] Allergy/AdvReac Type Severity Reaction Status Date / Time duloxetine [From Cymbalta] Allergy Rash Verified 10/19/20 18:27 sulfamethoxazole AdvReac Mild Headache Verified 10/19/20 18:27 [From Bactrim] and elevated BP trimethoprim [From Bactrim] AdvReac Mild Headache Verified 10/19/20 18:27 and elevated BP Family History Mother Cancer cervical Father Cancer Throat Grandmother Breast cancer Cancer Brain Stomach Grandfather Cancer Prostate Lung Surgical History delivery delivered H/O sinus surgery H/O: hysterectomy History of left oophorectomy History of tonsillectomy Social History Smoking Status: Former smoker alcohol intake: never substance use type: does not use caffeine: Yes what type of physical activity do you participate in: none seatbelt use: always do you feel safe at home: Yes additional social history: Patient is single and has in home day care ROS ROS ED Constitutional Constitutional ED: Denies chills or fever(s) Eyes Eyes: Denies change in vision ENT ENT ED: Denies sore throat Cardiovascular Cardiovascular: Reports chest pain; Denies palpitations or racing heartbeat Respiratory/Chest Respiratory/Chest: Denies cough, dyspnea, dyspnea on exertion or sputum Gastrointestinal Gastrointestinal: Denies abdominal pain, nausea or vomiting Musculoskeletal Musculoskeletal: Denies arthralgias, back pain, myalgias or neck pain Integumentary Denies rash Neurologic Neurologic: Reports paresthesias and other Details: Local only paresthesia. ; Denies headache(s) or weakness Endocrine Endocrinology: Denies polydipsia or polyuria Hematologic/Lymphatic Hematologic/Lymphatic: Denies easy bleeding or easy bruising EXAM Physical Exam Const Vital Signs: 10/19/20 18:27 10/19/20 18:44 Temperature 96.5 F L Temperature Source Temporal Pulse Rate 64 64 Respiratory Rate 14 14 Respiratory Effort Normal Non-Labored Blood Pressure 148/89 H 133/86 H Blood Pressure Mean 108 101 Pulse Ox 100 98 Oxygen Delivery Method Room Air Room Air Positive well nourished and well developed General Appearance ED: well developed HEENT normocephalic and atraumatic Eyes PERRL Neck no lymphadenopathy and supple Chest Wall inspection of chest normal Resp normal respiratory effort and clear to auscultation bilaterally Resp Narrative: Mild pain with palpation. No pain with a deep breath. Effort and Inspection: pain with movement; Negative for respiratory distress Cardio regular rate and regular rhythm GI normal to inspection, nondistended, normoactive bowel sounds, soft to palpation and non-tender Back/Spine no CVA tenderness Extremity normal to inspection Extremity Narrative: No asymmetry cord tenderness or distended veins. General Extremety ED: Negative for edema, pulses abnormal or tenderness General Extremity: Negative for edema or pulses abnormal Neuro Sensorium / Orientation: awake and alert Skin no rashes or lesions noted MDM MDM MDM Narrative Medical decision making narrative: Chest x-ray shows no acute process. CBC is normal. Electrolytes showed some mild dehydration her and also low potassium. We will give her some potassium here. She will increase fluids. I will write for some potassium to go for a few days. I think she is okay to go. She is PERC negative. She has reproducible tenderness. This is likely musculoskeletal but may be contributed by the low potassium. We discussed reasons to return. Lab Data Labs: Laboratory Results - last 24 hr 10/19/20 10/19/20 18:50 18:50 WBC 7.7 RBC 4.46 Hgb 12.6 Hct 37.6 MCV 84.3 MCH 28.3 MCHC 33.5 RDW Std Deviation 36.7 RDW Coeff of Cris 12.0 Plt Count 193 MPV TNP Immature Gran % (Auto) 0.600 Neut % (Auto) 50.4 Lymph % (Auto) 39.2 Moody % (Auto) 8.2 Eos % (Auto) 1.3 Baso % (Auto) 0.3 Absolute Neuts (auto) 3.9 Absolute Lymphs (auto) 3.02 Nucleated RBC % 0 Sodium 139 Potassium 2.9 L Chloride 103 Carbon Dioxide 33.0 H Anion Gap 3 L BUN 19 H Creatinine 0.84 Estim Creat Clear Calc 76.88 Est GFR (MDRD) Af Amer 96 Est GFR (MDRD) Non-Af 79 BUN/Creatinine Ratio 22.5 H Glucose 110 H Calcium 9.0 Troponin I High Sens 4.8 Radiography Diagnostic Testing: Radiology Impression Chest X-Ray 10/19/20 18:55 IMPRESSION: Nonacute portable x-ray examination of the chest. Electronically Signed: Tico Reyna MD ([place]) at 19:12 EDT , Service support , Discharge Plan Triage Chief Complaint: Chest Pain ED Provider: Gunner Fong Dx/Rx/DC Orders Clinical Impression: Chest pain, Acute hypokalemia Instructions: ED Chest Pain, Uncertain Cause, ED Hypokalemia Prescriptions: New potassium chloride 20 mEq tablet extended release 20 meq PO BID Qty: 14 RF: 0 No Action cholecalciferol (vitamin D3) 50,000 unit capsule 0 unit PO DAILY Qty: 4 RF: 0 hydrochlorothiazide 25 mg tablet 25 mg PO DAILY Qty: 30 RF: 0 amlodipine 10 mg tablet 10 mg PO DAILY Qty: 30 RF: 0 buprenorphine-naloxone 2-0.5 mg tablet, sublingual 1 tab SUBLINGUAL TID RF: 0 sumatriptan succinate 6 mg/0.5 mL pen injector 6 mg SC PRN PRN (Reason: Migraine Symptoms) RF: 0 multivitamin 1 EACH tablet 1 ea PO DAILY RF: 0 prednisone 20 mg tablet 40 mg PO DAILY RF: 0 Primary Care Provider: Kevin Ashford Referrals: Kevin Ashford MD [Primary Care Provider] - 3-5 Days if not improving Disposition Disposition: Home, Self Care
--- NOTE | 2020-10-19 18:55 | RAD_ITS ---
STUDY: X-RAY CHEST REASON FOR EXAM: Female, 40 years old. chest pain x 1 week, numbness down left arm started today TECHNIQUE: AP COMPARISON: 01/30/2019 FINDINGS: EKG leads project over the chest. The lungs are clear and expanded. There is no demonstrated pleural abnormality. Normal size heart. Normal mediastinum and leona. Normal visualized pulmonary arteries. Normal visualized aortic arch and descending thoracic aorta. Normal visualized thoracic spine. Normal visualized ribs, clavicles, and shoulders. There is no demonstrated abnormality of the visualized soft tissue structures of the upper abdomen. RAD/Chest 1 View (Portable) IMPRESSION: Nonacute portable x-ray examination of the chest. Electronically Signed: Tico Ryena MD ([place]) at 19:12 EDT , Service support ,
[2020-10-19 18:58] LABS: Absolute Lymphocyte Count 3.02 X10^3/uL (0.83-4.51); Absolute Neutrophil Count 3.9 X10^3/uL (2.0-7.7); Basophil# 0.02 X10^3/uL; Basophil% 0.3 % (0-1); Eosinophils% 1.3 % (0-5); Hematocrit 37.6 % (37-47); Hemoglobin 12.6 g/dL (12.0-15.0); Lymphocyte # 3.02 X10^3/ul (0.83-4.51); Lymphocyte % 39.2 % (19-41); Mean Corp Hgb Conc 33.5 g/dL (32-36); Mean Corpuscular Hgb 28.3 pg (27.0-32.0); Mean Corpuscular Volume 84.3 fL (81-99); Monocyte# 0.63 X10^3/uL; Monocyte% 8.2 % (0-10); NRBC Flagged by Analyzer 0 % (0-5); Neutrophil # 3.89 X10^3/uL (2.7-7.7); Neutrophil % 50.4 % (47-70); Platelet Count 193 K/mm3 (150-450); RBC Distribution Width SD 36.7 fl (35.1-43.9); Red Blood Count 4.46 M/mm3 (4.2-5.4); White Blood Count 7.7 K/mm3 (4.4-11.0)
[2020-10-19 19:14] LABS: Anion Gap 3 (5-15); BUN 19 mg/dL (7-18); BUN/Creat Ratio 22.5 RATIO (10-20); Chloride 103 mmol/L (98-107); Creatinine, Serum 0.84 mg/dL (0.55-1.02); EST Glomerular Filtration Rate 79 mL/min (>60); Est Glom Filt Rate - Afr Amer 96 mL/min (>60); Estimated Creatinine Clearance 76.88 ml/min; Glucose 110 mg/dL (74-106); Potassium 2.9 mmol/L (3.5-5.1); Sodium Level 139 mmol/L (136-145); Troponin-I HS 4.8 pg/mL (3.0-53.7)
[2020-10-19] MEDS: Potassium Chloride Oral Tablet 20 MEQ PO (20:21)
[2020-10-19 20:31] VITALS: BP 106/78; PULSE 80; RESP 18; O2SAT 97
== END 2020-10-19 20:32 | disposition home or self-care (01) ==
PROVIDERS: Emergency Provider Emergency Medicine; PCP Family Medicine
DX: E87.6 Hypokalemia (principal); R07.89 Other chest pain; E86.0 Dehydration; I10 Essential (primary) hypertension; G89.29 Other chronic pain; K21.9 Gastro-esophageal reflux disease without esophagitis; G47.30 Sleep apnea, unspecified; Z79.899 Other long term (current) drug therapy; Z87.891 Personal history of nicotine dependence
CPT/HCPCS: 71045; 80048; 84484; 85025; 93005; 99285; A4216

== ENCOUNTER 2021-04-07 09:32 | Outpatient (CLI) | payer MEDICAID, SELFPAY ==
[2021-04-07 09:34] LABS: Bacteria 0 SEEN /hpf (None Seen); Mucous, Urine 0 SEEN /hpf (<or=2+); Red Blood Cells-Urine 0 SEEN /hpf (0-5); Squamous Epithelial Cells - UA 0 SEEN /hpf (5-10); White Blood Cells 0 SEEN /hpf (0-5)
[2021-04-07 15:23] LABS: Absolute Lymphocyte Count 1.58 X10^3/uL (0.83-4.51); Absolute Neutrophil Count 2.6 X10^3/uL (2.0-7.7); Basophil# 0.02 X10^3/uL; Basophil% 0.4 % (0-1); Eosinophils% 4.1 % (0-5); Hematocrit 40.3 % (37-47); Hemoglobin 13.3 g/dL (12.0-15.0); Lymphocyte # 1.58 X10^3/ul (0.83-4.51); Lymphocyte % 32.6 % (19-41); Mean Corpuscular Hgb 28.2 pg (27.0-32.0); Mean Corpuscular Volume 85.6 fL (81-99); Mean Platelet Vol. 12.5 fl (6.2-12.0); Monocyte# 0.44 X10^3/uL; Monocyte% 9.1 % (0-10); NRBC Flagged by Analyzer 0 % (0-5); Neutrophil # 2.58 X10^3/uL (2.7-7.7); Neutrophil % 53.4 % (47-70); Platelet Count 107 K/mm3 (150-450); RBC Distribution Width CV 12.4 % (11.6-14.6); RBC Distribution Width SD 38.5 fl (35.1-43.9); Red Blood Count 4.71 M/mm3 (4.2-5.4); White Blood Count 4.8 K/mm3 (4.4-11.0)
[2021-04-07 15:47] LABS: Vitamin B12 374 pg/mL (211-911); Vitamin D,25 Hydroxy 33.6 ng/mL
[2021-04-07 15:56] LABS: Color, Urine Yellow (Yellow); Glucose, Dipstick Normal (Normal); Ketone-Dipstick Negative (Negative); Leukocyte Esterase-Dipstick Negative /ul (Negative); Nitrite-Dipstick Negative (Negative); Occult Blood-Urine Negative /ul (Negative); Protein-Dipstick Negative (Negative); Urine Bilirubin Dipstick Negative (Negative); Urine Clarity Clear (Clear); Urine Urobilinogen Normal (Normal)
[2021-04-07 16:12] LABS: AST(SGOT) 28 U/L (15-37); Alanine Aminotransfer ALT/SGPT 60 U/L (13-56); Albumin, Serum 3.8 g/dL (3.2-5.0); Alkaline Phosphatase 72 U/L (45-117); Anion Gap 6 (5-15); BUN 17 mg/dL (7-18); BUN/Creat Ratio 23.9 RATIO (10-20); Calcium,Total 9.1 mg/dL (8.5-10.1); Chloride 107 mmol/L (98-107); Cholesterol 164 mg/dL (200); Creatinine, Serum 0.71 mg/dL (0.55-1.02); EST Glomerular Filtration Rate 96 mL/min (>60); Est Glom Filt Rate - Afr Amer 117 mL/min (>60); Globulin 3.9 g/dL (2.2-4.2); Glucose 103 mg/dL (74-106); High Density Lipoprotein 58 mg/dL; Potassium 4.6 mmol/L (3.5-5.1); Protein, Total 7.7 g/dL (6.4-8.2); Sodium Level 139 mmol/L (136-145); Thyroid Stim Hormone (TSH) 1.34 uIU/mL (0.358-3.74); Triglycerides 86 mg/dL; Very Low Density Lipoprotein 17 mg/dL (5-40)
== END 2021-04-07 23:59 | disposition short-term general hospital (02) ==
LOC: MFPLAB 09:32
PROVIDERS: PCP Family Medicine; Visit Provider Family Medicine
DX: I10 Essential (primary) hypertension (principal); E55.9 Vitamin D deficiency, unspecified; R41.3 Other amnesia
CPT/HCPCS: 36415; 80053; 80061; 81001; 82306; 82607; 84443; 85025

== ENCOUNTER 2021-07-09 12:14 | Outpatient (CLI) | payer MEDICAID, SELFPAY ==
--- NOTE | 2021-07-09 12:17 | BI_ITS ---
MAMMOGRAPHY - BILATERAL SCREENING REASON FOR EXAM: Female, 41 years old. Routine annual screening examination. PERTINENT HISTORY: Grandmother with breast cancer. TECHNIQUE: Digital bilateral breast tiffany (3D mammographic acquisition) in the CC and MLO projections. 2-D mediolateral oblique (MLO) and craniocaudad (CC) views of both breasts were obtained. CAD: Full Field Digital Mammography with Computer Added Detection was performed. COMPARISON: Comparison is made with prior study dated 06/17/2020. FINDINGS: Breast Composition: The breasts are heterogeneously dense, which may obscure small masses. There are no dominant masses or suspicious calcifications. No other significant abnormalities are identified. There has been no significant change since the prior study. BI/SCRN MAMM (CAD)W/TIFFANY BILAT IMPRESSION: Stable bilateral screening mammogram. Yearly follow-up mammogram recommended. (A) ASSESSMENT CATEGORY: BIRADS Category 1: Negative. A letter regarding these results will be sent to the patient by the facility within 30 days. Approximately 10% of breast cancers are not detected by mammography. A normal mammogram should not delay biopsy of a clinically suspicious abnormality. [id number] Electronically Signed: Sukhwinder Martinez MD at 13:11 EDT ,
== END 2021-07-09 23:59 | disposition home or self-care (01) ==
LOC: OPBI 12:14
PROVIDERS: PCP Family Medicine; Referring Provider Family Medicine; Visit Provider Family Medicine
DX: Z12.31 Encounter for screening mammogram for malignant neoplasm of breast (principal)
CPT/HCPCS: 77063; 77067

== ENCOUNTER 2022-02-26 15:15 | Outpatient (CLI) | payer MEDICAID, SELFPAY ==
--- NOTE | 2022-02-26 15:16 | RAD_ITS ---
INDICATION: SOB, Wheezing EXAMINATION/TECHNIQUE: X-RAY - XR Chest 2 Views COMPARISON: 10/19/2020. FINDINGS: The lungs are clear. The cardiomediastinal silhouette is unremarkable. No pleural effusion or pneumothorax. No acute osseous abnormalities. RAD/Chest PA and Lateral IMPRESSION: No acute radiographic abnormalities. Electronically Signed: Migel Maya MD at 17:26 EST ,
== END 2022-02-26 23:59 | disposition home or self-care (01) ==
LOC: MTRAD 15:16
PROVIDERS: PCP Family Medicine; Referring Provider Physician Assistant; Visit Provider Physician Assistant
DX: R06.02 Shortness of breath (principal); R06.2 Wheezing
CPT/HCPCS: 71046

== ENCOUNTER → 2022-04-20 | Outpatient (CLI) | payer MEDICAID, SELFPAY ==
--- NOTE | 2022-04-22 11:17 | PFT ---
INTRODUCTION: The patient is a 42-year-old female that presents for pulmonary function studies secondary to a diagnosis of shortness of breath. Respiratory therapy reported good patient effort. Bronchodilators were used during testing. INTERPRETATION: Forced expiration spirometry demonstrates no evidence of a large airways obstructive ventilatory defect. There was no significant response to aerosolized bronchodilators. Spirograms are of good quality and plateau normally. Body plethysmography was performed and revealed lung volumes to be within normal limits. Diffusing capacity by single breath CO was also within normal limits. IMPRESSION: Grossly normal pulmonary function studies.
== END | disposition home or self-care (01) ==
PROVIDERS: PCP Physician Assistant; Referring Provider Physician Assistant; Visit Provider Physician Assistant
DX: R06.02 Shortness of breath (principal); R06.2 Wheezing; Z87.891 Personal history of nicotine dependence
CPT/HCPCS: 94060; 94726; 94729

== ENCOUNTER → 2022-04-23 | Outpatient (CLI) | payer MEDICAID, SELFPAY ==
[2022-04-23 16:45] LABS: Absolute Lymphocyte Count 1.85 X10^3/uL (0.83-4.51); Basophil# 0.02 X10^3/uL; Basophil% 0.4 % (0-1); Eosinophil# 0.24 X10^3/uL; Eosinophils% 4.3 % (0-5); Hematocrit 40.1 % (37-47); Hemoglobin 13.9 g/dL (12.0-15.0); Lymphocyte # 1.85 X10^3/ul (0.83-4.51); Lymphocyte % 33.4 % (19-41); Mean Corp Hgb Conc 34.7 g/dL (32-36); Mean Corpuscular Volume 83.5 fL (81-99); Mean Platelet Vol. 12.1 fl (6.2-12.0); Monocyte# 0.45 X10^3/uL; Monocyte% 8.1 % (0-10); NRBC Flagged by Analyzer 0 % (0-5); Neutrophil # 2.96 X10^3/uL (2.7-7.7); Neutrophil % 53.4 % (47-70); Platelet Count 176 K/mm3 (150-450); RBC Distribution Width SD 36.2 fl (35.1-43.9); White Blood Count 5.5 K/mm3 (4.4-11.0)
[2022-04-23 16:56] LABS: Hemoglobin A1c 5.7 % (3.8-5.6)
== END | disposition home or self-care (01) ==
PROVIDERS: PCP Internal Medicine; Referring Provider Internal Medicine; Visit Provider Internal Medicine
DX: Z13.1 Encounter for screening for diabetes mellitus (principal); D69.6 Thrombocytopenia, unspecified
CPT/HCPCS: 36415; 83036; 85025

== ENCOUNTER → 2022-04-29 | Outpatient (CLI) | payer MEDICAID, SELFPAY | END | disposition home or self-care (01) | PROVIDERS: PCP Physician Assistant; Referring Provider Physician Assistant; Visit Provider Physician Assistant | DX: G47.33 Obstructive sleep apnea (adult) (pediatric) (principal) | CPT/HCPCS: 95811 ==

== ENCOUNTER → 2022-08-04 | Outpatient (CLI) | payer MEDICAID, SELFPAY | END | disposition home or self-care (01) | LOC: SL 14:06 | PROVIDERS: PCP Internal Medicine; Visit Provider Nurse Practitioner Family | DX: G47.33 Obstructive sleep apnea (adult) (pediatric) (principal); Z99.81 Dependence on supplemental oxygen ==

== ENCOUNTER → 2024-03-15 | Outpatient (CLI) | payer MEDICAID, SELFPAY ==
[2024-03-15 10:13] LABS: Absolute Lymphocyte Count 2.21 X10^3/uL (0.83-4.51); Absolute Neutrophil Count 2.6 X10^3/uL (2.0-7.7); Basophil# 0.02 X10^3/uL; Basophil% 0.4 % (0-1); Eosinophil# 0.24 X10^3/uL; Eosinophils% 4.3 % (0-5); Hematocrit 43.1 % (37-47); Lymphocyte # 2.21 X10^3/ul (0.83-4.51); Mean Corp Hgb Conc 32.5 g/dL (32-36); Mean Corpuscular Hgb 27.8 pg (27.0-32.0); Mean Corpuscular Volume 85.7 fL (81-99); Mean Platelet Vol. 12.1 fl (6.2-12.0); Monocyte# 0.47 X10^3/uL; Monocyte% 8.5 % (0-10); NRBC Flagged by Analyzer 0 % (0-5); Neutrophil # 2.58 X10^3/uL (2.7-7.7); Neutrophil % 46.6 % (47-70); Platelet Count 169 K/mm3 (150-450); RBC Distribution Width CV 12.2 % (11.6-14.6); Red Blood Count 5.03 M/mm3 (4.2-5.4); White Blood Count 5.5 K/mm3 (4.4-11.0)
[2024-03-15 11:05] LABS: AST(SGOT) 40 U/L (15-37); Alanine Aminotransfer ALT/SGPT 82 U/L (13-56); Alkaline Phosphatase 79 U/L (45-117); Anion Gap 5 (5-15); BUN 15 mg/dL (7-18); BUN/Creat Ratio 19.2 RATIO (10-20); Calcium,Total 9.6 mg/dL (8.5-10.1); Chloride 102 mmol/L (98-107); Creatinine, Serum 0.78 mg/dL (0.55-1.02); EST Glomerular Filtration Rate 85 mL/min (>60); Est Glom Filt Rate - Afr Amer 103 mL/min (>60); Globulin 4.1 g/dL (2.2-4.2); Glucose 122 mg/dL (74-106); Potassium 3.3 mmol/L (3.5-5.1); Protein, Total 8.1 g/dL (6.4-8.2); Sodium Level 138 mmol/L (136-145)
[2024-03-15 12:10] LABS: Hemoglobin A1c 5.4 % (3.8-5.6)
[2024-03-16 07:56] LABS: Vitamin D,25 Hydroxy 26.4 ng/mL
== END | disposition home or self-care (01) ==
LOC: MTLAB 07:06
PROVIDERS: PCP Internal Medicine; Referring Provider Internal Medicine; Visit Provider Internal Medicine
DX: I10 Essential (primary) hypertension (principal); R73.03 Prediabetes; E55.9 Vitamin D deficiency, unspecified
CPT/HCPCS: 36415; 80053; 82306; 83036; 85025

== ENCOUNTER → 2024-12-27 | Outpatient (CLI) | payer MEDICAID, SELFPAY ==
--- NOTE | 2024-12-27 11:01 | NEURO ---
NCS and/or EMG Patient Report Ordering Doctor: Zoran Lucero DATE OF SERVICE: 12/27/24 Summer presents with complaints of numbness and tingling in the left hand. Electrodiagnostic findings: Left median motor nerve demonstrates prolonged latency with normal amplitude and conduction velocity. Normal left ulnar motor response, including conduction across the elbow. Normal left median and left ulnar F?waves. Sensory responses are within normal limits. Needle EMG testing was performed in the left upper limb. All muscles tested showed no evidence of denervation with normal motor unit action potentials. Electrodiagnostic impression: This is an abnormal study in the left upper limb. 1. Electrodiagnostic findings suggestive of left-sided median mononeuropathy. This consistent with a mild left carpal tunnel syndrome. Multi Select Codes Neurology Neurology Interp Codes: 29138-56 Musc test done w/n test comp (interp) and 67229-46 Nrv cndj tst 5-6 studies (interp)
--- NOTE | 2024-12-27 11:01 | NEURO ---
NCS and/or EMG Patient Report Ordering Doctor: Zoran Lucero DATE OF SERVICE: 12/27/24 Summer presents with complaints of numbness and tingling in the left hand. Electrodiagnostic findings: Left median motor nerve demonstrates prolonged latency with normal amplitude and conduction velocity. Normal left ulnar motor response, including conduction across the elbow. Normal left median and left ulnar F?waves. Sensory responses are within normal limits. Needle EMG testing was performed in the left upper limb. All muscles tested showed no evidence of denervation with normal motor unit action potentials. Electrodiagnostic impression: This is an abnormal study in the left upper limb. 1. Electrodiagnostic findings suggestive of left-sided median mononeuropathy. This consistent with a mild left carpal tunnel syndrome. Multi Select Codes Neurology Neurology Interp Codes: 76201-54 Musc test done w/n test comp (interp) and 97118-61 Nrv cndj tst 5-6 studies (interp)
--- OUTSIDE RECORDS SUMMARY | 2024-12-28 22:57 | XMS RPT_ITS | CCD ---
Author Organization [facility] Care Team Providers Care Coating Operator Name Role Phone Bri Eisenberg Unavailable Unavailable Bri Eisenberg Unavailable Unavailable Austin Botello Unavailable Leland Madden PA-C Unavailable JOSÉ MANUEL Caicedo Michelle M Unavailable [phone] Dr. Kevin Ashford Primary Care Provider Dr. Kevin Ashford Referring Provider Joe, PA Kayleigh Attending Provider Unavailab le McGoron, PA Kayleigh Primary Care Provider Unavai lable McGoron, PA Kayleigh Referring Provider Unavailab le McGoron, PA Kayleigh Other Provider Unavailable Dr. Jp Rob Attending Provider Dr. Natalia Patton Attending Provider McGoron, PA Kayleigh Primary Care Provider Unavai lable McGoron, PA Kayleigh Referring Provider Unavailab le McGoron, PA Kayleigh Other Provider Unavailable Dr. Jp Rob Attending Provider Dr. Natalia Patton Attending Provider [phone] Unavailable Primary Care Provider UnavailFIFI Alvarez Referring Unavailable FIFI ALCOCER Attending Unavailable Dr. Natalia Patton MD Primary Care Provider Dr. Natalia Patton MD Attending Provider Dr. Natalia Patton MD Referring Provider Meek Berry Attending Provider Juan Tuttle Attending Provider Austin Botello Attending Provider [facility] Kevin BARRERA Attending Provider [phone] Abdi HINKLE, Natalia Primary Care Provider [phone] Abdi HINKLE, Natalia Referring Provider Abdi HINKLE, Natalia Primary Care Provider [phone] Abdi HINKLE, Dr. Fisher Referring Provider Austin Botello Attending Provider Zoran Harp Attending Provider [place], Natalia Referring Unavailable [place], Natalia Primary Care Unavailable Austin Botello Attending Unavailable Abdi, Natalia Primary Care Unavailable Austin Botello Attending Unavailable Austin Botello Referring Unavailable [place], Natalia Referring Unavailable [place], Natalia Attending Unavailable Abdi, Natalia Primary Care Unavailable [place], Natalia Attending Unavailable Abdi, Natalia Primary Care Unavailable [place], Natalia Attending Unavailable Abdi, Natalia Primary Care Unavailable [place], Natalia Referring Unavailable Abdi, Natalia Referring Unavailable [place], Natalia Primary Care Unavailable Zoran Harp Attending Unavailable [place], Natalia Primary Care Unavailable [place], Natalia Referring Unavailable Austin Botello Attending Unavailable [place], Natalia Primary Care Unavailable [place], Natalia Referring Unavailable Austin Botello Attending Unavailable Abdi, Natalia Attending Unavailable [place], Natalia Referring Unavailable [place], Natalia Primary Care Unavailable [place], Natalia Primary Care Unavailable [place], Natalia Referring Unavailable Austin Botello Attending Unavailable [place], Natalia Primary Care Unavailable [place], Natalia Referring Unavailable Austin Botello Attending Unavailable Abdi, Natalia Referring Unavailable Meek Berry Attending Unavailable Abdi, Natalia Primary Care Unavailable Juan Moise Attending Unavailable Abdi, Natalia Primary Care Unavailable [place], Natalia Referring Unavailable [place], Natalia Referring Unavailable Darrin Hackett Attending Unavailable [place], Natalia Primary Care Unavailable Austin Botello Attending Unavailable [place], Natalia Primary Care Unavailable Abdi, Natalia Referring Unavailable Abdi, Natalia Referring Unavailable Roof HOT PIPE GAUGER, Kevin Villanueva Attending Unavailable [place], Natalia Primary Care Unavailable Allergies Allergy Classification Reported Allergen(s) Allergy Type Date of Onset Reaction(s) Facility (7 sources) DULoxetine Drug Allergy 7 Rasg, edema [facility] Work Phone: (8 sources) DULoxetine Drug Allergy 1 Rash [facility] (8 sources) Sulfamethoxazole Drug Allergy 1 Headache and elevated BP [facility] (8 sources) Trimethoprim Drug Allergy 1 Headache and elevated BP [facility] (1 source) DULoxetine Drug Allergy 5 [facility] (1 source) Sulfamethoxazole Drug Allergy 5 [facility] (1 source) Trimethoprim Drug Allergy 5 [facility] Medications Current Medications Medication Drug Class(es) Dates Sig (Normalized) Sig (Original) buprenorphine 2 mg / naloxone 0.5 mg sublingual tablet (16 sources) Partial Opioid Agonist, Opioid Antagonist Start: 09-14-2019 Buprenorphine-Nal oxone 2-0.5 mg tablet, sublingual Active 1 {tbl} SL THREE TIMES A DAY September 14, 2019 12:00am Start: 09-14-2019 Buprenorphine- Naloxone Active 1 TABLET SL THREE TIMES A DAY September 14, 2019 12:00am Start: 04-20-2017 End: 09-14-2019 Buprenorphine-Naloxone 1 EAC H film Discontinued 2 NMA SL THREE TIMES A DAY April 20, 2017 1:00am September 14, 2019 9:56am RECOVERING ADDICT Start: 04-20-2017 End: 09-14-2019 Buprenorphine-Naloxone Disco ntinued 2 EACH SL THREE TIMES A DAY April 20, 2017 1:00am September 14, 2019 9:56am ELDERBERRY FRUIT (7 sources) Start: 02-26-2022 Elderberry Fru it 350 mg capsule Active mg PO February 26, 2022 1:00am Start: 02-26-2022 Elderberry Fru it Active MG PO February 26, 2022 1:00am Start: 02-26-2022 Elderberry Fru it Active MG PO February 26, 2022 12:00am escitalopram 10 mg oral tablet (19 sources) Serotonin Reuptake Inhibitor Start: 04-23-2022 End: 11-08-2024 take 1 tablet by mouth once daily Escitalopram Oxalate (Lexapro) 10 mg tablet Active 10 mg PO DAILY 30 0 November 08, 2024 3:12pm hydroCHLOROthiazide 25 mg oral tablet (20 sources) Thiazide Diuretic Start: 02-14-2019 End: 11-03-2024 take 1 tablet by mouth once daily Hydrochlorothiazide 25 mg tablet Active 25 mg PO DAILY 90 0 November 03, 2024 2:47pm Start: 02-14-2019 End: 09-14-2019 Hydrochlorothiazide 25 mg ta blet Discontinued PO 30 0 February 14, 2019 1:00am September 14, 2019 10:03am methylPREDNISolone 4 mg oral tablet (4 sources) Corticosteroid Start: 11-17-2024 take 1 tablet by mouth once Methylprednisolone (Medrol (Chet)) 4 mg tablets,dose pack Active 0 PO per package directions 21 November 17, 2024 12:00am PO PER PKG DIR for 6 days Start: 06-20-2024 End: 09-03-2024 take 1 tablet by mouth once Methylprednisolone (Medrol (Chet)) 4 mg tablets,dose pack Discontinued 0 PO per package directions June 20, 2024 12:00am September 03, 2024 8:53am PO PER PKG DIR Multivitamin 1 EACH tablet (3 sources) Start: 10-02-2019 Multivitamin 1 EACH tablet Active 1 NMA PO DAILY October 02, 2019 12:00am Multivitamin preparation (5 sources) Start: 10-02-2019 Multivitamin A ctive 1 EACH PO DAILY October 02, 2019 9:48am Start: 10-02-2019 Multivitamin A ctive 1 EACH PO DAILY October 02, 2019 12:00am Start: 10-02-2019 Multivitamin A ctive 1 EACH PO DAILY October 01, 2019 11:00pm Completed/Discontinued Medications Medication Drug Class(es) Dates Sig (Normalized) Sig (Original) amLODIPine 5 mg oral tablet (20 sources) Dihydropyridine Calcium Channel Moses Start: 09-21-2022 End: 05-03-2023 take 1 tablet by mouth once daily Amlodipine 5 mg tablet Discontinued 5 mg PO DAILY 90 1 September 21, 2022 2:46pm May 03, 2023 3:27pm Start: 02-14-2019 End: 09-21-2022 take 1 tablet by mouth once daily Amlodipine 10 mg tablet Discontinued 10 mg PO DAILY 14 0 April 17, 2022 10:22am April 23, 2022 4:24pm Start: 02-14-2019 End: 09-14-2019 Amlodipine 10 mg tablet Disc ontinued PO 30 0 February 14, 2019 1:00am September 14, 2019 10:03am amoxicillin 875 mg / clavulanate 125 mg oral tablet (20 sources) Penicillin-class Antibacterial Start: 09-26-2024 End: 11-17-2024 Amoxicillin-Pot Clavulanate 875-125 mg tablet Discontinued 1 {tbl} PO TWICE A DAY 20 0 September 26, 2024 12:00am November 17, 2024 7:37am Start: 05-25-2024 End: 06-04-2024 Amoxicillin-Pot Clavulanate 875-125 mg tablet Discontinued 1 {tbl} PO Q12H 20 10 0 May 25, 2024 1:00am June 03, 2024 1:00am June 04, 2024 1:14am Acute sinusitis, unspecified Start: 05-05-2018 End: 05-19-2018 Amoxicillin-Pot Clavulanate 875-125 mg tablet Discontinued 1 {tbl} PO TWICE A DAY 20 0 May 05, 2018 1:00am May 19, 2018 11:02am Start: 05-05-2018 End: 05-19-2018 take 1 tablet by mouth twice daily Amoxicillin-Pot Clavulanate Discontinued 1 TABLET PO TWICE A DAY 20 May 05, 2018 1:00am May 19, 2018 11:02am Start: 02-13-2017 End: 02-20-2017 take 1 tablet by mouth twice daily AUGMENTIN 875-125 MG TABS One tablet by mouth twice daily AMOXICILLIN-POT CLAVULANATE [id number] Fifi Caicedo PA-C Start: 06-02-2016 End: 06-12-2016 AMOXICILLIN-POT CLAVULANATE 875-125 MG TABS Take one tab every 12 hours AMOXICILLIN-POT CLAVULANATE [id number] Meek ORDOÑEZ azithromycin 250 mg oral tablet (8 sources) Macrolide Antimicrobial Start: 04-25-2017 End: 01-18-2018 take 2-4 tablets by mouth once daily Azithromycin 250 mg tablet Discontinued 0 PO .COMPLEX 6 0 April 25, 2017 1:00am January 18, 2018 3:25pm 500 mg day 1, then 250 mg days 2-4 PO benzonatate 200 mg oral capsule (19 sources) Non-narcotic Antitussive Start: 09-26-2024 End: 11-17-2024 take 1 capsule by mouth three times daily as needed for cough Benzonatate 200 mg capsule Discontinued 200 mg PO THREE TIMES A DAY as needed for cough 20 0 September 26, 2024 12:00am November 17, 2024 7:37am Start: 06-20-2024 End: 09-03-2024 take 1 capsule by mouth three times daily as needed for cough Benzonatate 200 mg capsule Discontinued 200 mg PO THREE TIMES A DAY as needed for cough 20 0 June 20, 2024 12:00am September 03, 2024 8:53am Start: 06-02-2016 KIMBERLY Albarran CAPS as directed BENZONATATE CAPS [id number] Meek ORDOÑEZ Start: 06-02-2016 End: 06-05-2016 KIMBERLY ALDRIDGE CAPS as dire cted BENZONATATE CAPS [id number] Meek ORDOÑEZ cephalexin 500 mg oral capsule (8 sources) Cephalosporin Antibacterial Start: 10-18-2018 End: 10-29-2018 take 1 capsule by mouth every twelve hours Cephalexin 500 mg capsule Discontinued 500 mg PO Q12H 20 10 0 October 18, 2018 12:00am October 27, 2018 12:00am October 29, 2018 12:08am cholecalciferol 1.25 mg oral capsule (8 sources) Vitamin D Start: 10-31-2018 End: 02-26-2022 Cholecalciferol (Vitamin D3) 50,000 unit capsule Discontinued 0 U PO DAILY 4 0 October 31, 2018 12:00am February 26, 2022 3:32pm doxycycline hyclate 100 mg oral capsule (3 sources) Tetracycline-class Drug Start: 09-03-2024 End: 09-10-2024 take 1 capsule by mouth twice daily Doxycycline Hyclate 100 mg capsule Discontinued 100 mg PO TWICE A DAY 14 7 0 September 03, 2024 12:00am September 09, 2024 12:00am September 10, 2024 12:08am ketoconazole 20 mg/ml medicated shampoo (8 sources) Azole Antifungal Start: 10-31-2018 End: 09-14-2019 Ketoconazole 2 % shampoo Discontinued TOPICAL 120 0 October 31, 2018 12:00am September 14, 2019 9:56am Start: 10-31-2018 End: 09-14-2019 Ketoconazole Discontinued TO PICAL 120 October 31, 2018 12:00am September 14, 2019 9:56am naproxen 250 mg oral tablet (8 sources) Nonsteroidal Anti-inflammatory Drug Start: 05-06-2017 End: 09-14-2019 take 250-500 mg by mouth every eight hours as needed for pain Naproxen 250 MG tablet Discontinued 250 - 500 mg PO EVERY 8 HOURS NEEDED as needed for MILD PAIN 30 1 May 06, 2017 1:00am September 14, 2019 9:56am oseltamivir 75 mg oral capsule (8 sources) Neuraminidase Inhibitor Start: 05-10-2018 End: 05-17-2018 take 1 capsule by mouth once daily Oseltamivir (Tamiflu) 75 mg capsule Discontinued 75 mg PO DAILY 7 7 0 May 10, 2018 1:00am May 16, 2018 1:00am May 17, 2018 1:07am Contact with and (suspected) exposure to other viral communicable diseases pantoprazole 40 mg delayed release oral tablet (3 sources) Proton Pump Inhibitor Start: 05-17-2024 End: 09-03-2024 take 1 tablet by mouth once daily in the morning Pantoprazole (Protonix) 40 mg tablet,delayed release (DR/EC) Discontinued 40 mg PO EVERY MORNING 30 1 May 17, 2024 1:00am September 03, 2024 8:53am [id number] IFENESIN LIQD (7 sources) Start: 06-02-2016 MUCINEX FAST-MAX LIQD as directed PHENYLEPHRINE-AP AP-GUAIFENESIN LIQD [id number] Meek ORDOÑEZ microencapsulated potassium chloride 20 meq extended release oral tablet (11 sources) Start: 03-15-2024 End: 09-03-2024 take 2 tablets by mouth once Potassium Chloride 20 mEq tablet,ER particles/itzel ls Discontinued 40 meq PO ONCE 2 0 March 15, 2024 1:00am September 03, 2024 8:53am Start: 10-19-2020 End: 02-26-2022 take 1 tablet by mouth twice daily Potassium Chloride 20 mEq tablet extended release Discontinued 20 meq PO TWICE A DAY 14 0 October 19, 2020 12:00am February 26, 2022 3:33pm predniSONE 20 mg oral tablet (20 sources) Corticosteroid Start: 09-03-2024 End: 09-08-2024 take 2 tablets by mouth once daily Prednisone 20 mg tablet Discontinued 40 mg PO daily 10 5 0 September 03, 2024 12:00am September 07, 2024 12:00am September 08, 2024 12:08am Start: 10-19-2020 End: 02-26-2022 take 2 tablets by mouth once daily Prednisone 20 mg tablet Discontinued 40 mg PO DAILY October 19, 2020 12:00am February 26, 2022 3:33pm Start: 10-19-2020 End: 02-26-2022 take 40 mg by mouth once daily Prednisone Discontinued 40 MG PO DAILY October 19, 2020 12:00am February 26, 2022 3:33pm Start: 04-25-2017 End: 05-02-2017 take 1 tablet by mouth once daily at mealtime Prednisone 20 mg tablet Discontinued 20 mg PO .COMPLEX 10 7 0 April 25, 2017 1:00am May 01, 2017 1:00am May 02, 2017 1:06am 20 mg PO 2 pills daily x 3 days, then 1 pill daily x 4 days; administer with food or milk Start: 06-02-2016 PREDNISONE TAB S as directed PREDNISONE TABS [id number] Meek ORDOÑEZ Start: 06-02-2016 End: 06-05-2016 PREDNISONE TABS as directed PREDNISONE TABS [id number] Meek ORDOÑEZ 0.25 mg, 0.5 mg dose 1.5 ml semaglutide 1.34 mg/ml pen injector (17 sources) Start: 06-01-2022 End: 08-13-2022 Semaglutide (Ozempic) 0.25 m g or 0.5 mg(2 mg/1.5 mL) pen injector Discontinued 0.5 mg SC EVERY WEEK 1.5 0 August 13, 2022 2:39pm August 13, 2022 4:25pm Obesity with body mass index (BMI) of 30.0 to 39.9 Prediabetes Obesity, unspecified Prediabetes Start: 04-27-2022 End: 06-01-2022 Semaglutide (Ozempic) 0.25 m g or 0.5 mg(2 mg/1.5 mL) pen injector Discontinued 0.25 mg SC EVERY WEEK 1.5 0 April 27, 2022 1:00am June 01, 2022 9:59am Obesity with body mass index (BMI) of 30.0 to 39.9 Prediabetes Obesity, unspecified Prediabetes for 4 weeks Semaglutide (3 sources) Start: 08-13-2022 End: 09-21-2022 Semaglutide (Ozempic) 0.25 m g or 0.5 mg (2 mg/3 mL) pen injector Discontinued 0.25 mg SC EVERY WEEK 3 0 August 13, 2022 12:00am September 21, 2022 11:40am for 4 weeks Start: 08-13-2022 End: 09-21-2022 Semaglutide (Ozempic) 0.25 m g or 0.5 mg (2 mg/3 mL) pen injector Discontinued 0.25 mg SC EVERY WEEK 3 August 13, 2022 12:00am September 21, 2022 11:40am for 4 weeks Semaglutide (Weight Loss) (3 sources) Start: 09-21-2022 End: 05-03-2023 Semaglutide (Weight Loss) (W egovy) 0.25 mg/0.5 mL pen injector Discontinued 0.25 mg SC EVERY WEEK 2 0 September 21, 2022 12:00am May 03, 2023 3:27pm administer weeks 1 through 4 of therapy Start: 09-21-2022 End: 05-03-2023 Semaglutide (Weight Loss) (W egovy) 0.25 mg/0.5 mL pen injector Discontinued 0.25 mg SC EVERY WEEK 2 September 21, 2022 12:00am May 03, 2023 3:27pm administer weeks 1 through 4 of therapy sulfamethoxazole 800 mg / trimethoprim 160 mg oral tablet (3 sources) Dihydrofolate Reductase Inhibitor Antibacterial, Sulfonamide Antimicrobial Start: 02-25-2017 BACTRIM DS 800-160 MG TABS 1 tablet every 12 hours SULFAMETHOXAZOLE-TRIMETHOPRIM [id number] Austin ORDOÑEZ 0.5 ml SUMAtriptan 12 mg/ml auto-injector (20 sources) Serotonin-1b and Serotonin-1d Receptor Agonist Start: 09-14-2019 End: 05-17-2024 Sumatriptan Succinate 6 mg/0 .5 mL pen injector Discontinued 6 mg SC NEEDED as needed for Migraine Symptoms 1 0 September 29, 2023 4:25pm May 17, 2024 1:05pm Start: 05-26-2016 IMITREX TABS T chantal as directed SUMATRIPTAN SUCCINATE TABS [id number] Meek ORDOÑEZ Start: 09-21-2014 End: 09-14-2019 take 1 tablet by mouth twice daily as needed Sumatriptan Succinate 50 MG tablet Discontinued 50 mg PO TWICE A DAY as needed for Migraine Symptoms September 21, 2014 12:00am September 14, 2019 9:55am Problems Active Problems Problem Classification Problem Date Documented Da te Episodic/Chronic Abdominal pain (16 sources) Chronic pelvic pain of female; Translations: [Pelvic and perineal pain] 04-23-2022 Episodic Anxiety disorders (10 sources) Anxiety; Translations: [Anxiety disorder, unspecified] 04-23-2022 Chronic Chronic obstructive pulmonary disease and bronchiectasis (8 sources) Bronchitis; Translations: [Bronchitis, not specified as acute or chronic] 04-01-2022 Episodic Coagulation and hemorrhagic disorders (3 sources) Thrombocytopenia, unspecified; Translations: [Thrombocytopenia, unspecified] 04-23-2022 Chronic Diabetes mellitus without complication (4 sources) Prediabetes; Translations: [Prediabetes] 06-09-2022 Episodic Esophageal disorders (9 sources) Gastroesophageal reflux disease; Translations: [Gastro-esophageal reflux disease without esophagitis] 04-23-2022 Chronic Essential hypertension (17 sources) Hypertensive disorder; Translations: [Essential (primary) hypertension] Onset: Chronic Fluid and electrolyte disorders (8 sources) Acute hypokalemia; Translations: [Hypokalemia] 04-01-2022 Episodic Gastrointestinal hemorrhage (16 sources) Rectal hemorrhage; Translations: [Hemorrhage of anus and rectum] 04-23-2022 Episodic Genitourinary symptoms and ill-defined conditions (11 sources) Increased frequency of urination; Translations: [Frequency of micturition] 04-23-2022 Episodic Headache; including migraine (4 sources) Migraine without aura, not intractable, without status migrainosus; Translations: [Migraine without aura, without mention of intractable migraine without mention of status migrainosus] 04-23-2022 Chronic Headache; including migraine (8 sources) Headache; Translations: [Headache] 04-01-2022 Episodic Immunizations and screening for infectious disease (13 sources) Contact with and (suspected) exposure to other viral communicable diseases; Translations: [Exposure to influenza] Onset: 04-01-2022 Episodic Malaise and fatigue (15 sources) Fatigue; Translations: [Other fatigue] Onset: 7 06-05-2016 Episodic Mood disorders (10 sources) Moderately severe depression; Translations: [Moderately severe depression] 04-23-2022 Chronic Nausea and vomiting (16 sources) Acute vomiting; Translations: [Vomiting, unspecified] 04-23-2022 Episodic Noninfectious gastroenteritis (11 sources) Gastroenteritis; Translations: [Noninfective gastroenteritis and colitis, unspecified] 04-01-2022 Episodic Nonspecific chest pain (8 sources) Chest pain; Translations: [Chest pain, unspecified] 04-23-2022 Episodic Other complications of ; puerperium affecting management of mother (4 sources) delivery - delivered; Translations: [Encounter for delivery without indication] 04-01-2022 Episodic Other complications of ; puerperium affecting management of mother (4 sources) Deliveries by ; Translations: [Encounter for delivery without indication] 04-01-2022 Episodic Comment on above: 2011 Other connective tissue disease (5 sources) Disease suspected; Translations: [Other symptoms and signs involving the nervous system] 04-23-2022 Episodic Other connective tissue disease (3 sources) Suspected respiratory disease; Translations: [Other symptoms and signs involving the nervous system] 04-23-2022 Episodic Other ear and sense organ disorders (8 sources) Otalgia, left ear; Translations: [Left ear pain] 10-10-2019 Episodic Other gastrointestinal disorders (8 sources) Diarrhea; Translations: [Diarrhea, unspecified] 04-23-2022 Episodic Other gastrointestinal disorders (8 sources) Constipation; Translations: [Constipation, unspecified] 04-23-2022 Episodic Other infections; including parasitic (3 sources) Personal history of other infectious and parasitic diseases; Translations: [History of 2019 novel coronavirus disease (COVID-19)] Episodic Other lower respiratory disease (6 sources) Shortness of breath; Translations: [Shortness of breath] Episodic Other lower respiratory disease (3 sources) Wheezing; Translations: [Wheezing] Episodic Other nervous system disorders (2 sources) Carpal tunnel syndrome of left wrist; Translations: [Carpal tunnel syndrome, left upper limb] 11-17-2024 Chronic Other nervous system disorders (8 sources) H/O: migraine; Translations: [Personal history of other diseases of the nervous system and sense organs] 04-23-2022 Episodic Other nervous system disorders (8 sources) Dysesthesia of scalp; Translations: [Other disturbances of skin sensation] 02-26-2022 Episodic Other nervous system disorders (8 sources) Dysgraphia; Translations: [Other lack of coordination] 04-23-2022 Episodic Other nervous system disorders (3 sources) Other disturbances of skin sensation; Translations: [Disturbance of skin sensation] Episodic Other nutritional; endocrine; and metabolic disorders (3 sources) Body mass index 30+ - obesity; Translations: [Body mass index (BMI) 33.0-33.9, adult] 05-17-2024 Chronic Other nutritional; endocrine; and metabolic disorders (3 sources) Obesity, unspecified; Translations: [Obesity, unspecified] 04-23-2022 Chronic Other upper respiratory infections (8 sources) Sinusitis; Translations: [Chronic sinusitis, unspecified] 04-23-2022 Chronic Other upper respiratory infections (20 sources) Acute sinusitis; Translations: [Acute pharyngitis] Onset: 7 02-25-2017 Episodic Ovarian cyst (8 sources) Cyst of ovary; Translations: [Unspecified ovarian cyst, left side] 04-01-2022 Episodic Comment on above: plan left ovarian cy stectomy possible oophorectomy. us ordered. Residual codes; unclassified (10 sources) Obstructive sleep apnea syndrome; Translations: [Obstructive sleep apnea (adult) (pediatric)] 02-26-2022 Chronic Residual codes; unclassified (2 sources) Sleep apnea; Translations: [Sleep apnea, unspecified] Chronic Residual codes; unclassified (8 sources) Hypersomnia; Translations: [Hypersomnia, unspecified] 04-01-2022 Chronic Residual codes; unclassified (7 sources) Obstructive sleep apnea (adult) (pediatric); Translations: [Obstructive sleep apnea (adult)(pediatric)] Onset: 5 Chronic Residual codes; unclassified (8 sources) History of nasal sinus surgery; Translations: [Other specified postprocedural states] 04-01-2022 Episodic Residual codes; unclassified (8 sources) History of left oophorectomy; Translations: [Acquired absence of ovaries, unilateral] 04-01-2022 Episodic Residual codes; unclassified (3 sources) Immunization not carried out because of patient refusal; Translations: [Vaccination not carried out because of patient refusal] 04-23-2022 Episodic Residual codes; unclassified (5 sources) Viral syndrome; Translations: [Other general symptoms and signs] 05-29-2024 Episodic Residual codes; unclassified (1 source) Influenza vaccination declined; Translations: [Immunization not carried out because of patient refusal] 05-17-2024 Episodic Screening and history of mental health and substance abuse codes (3 sources) Personal history of nicotine dependence; Translations: [Personal history of tobacco use] Episodic Substance-related disorders (10 sources) History of drug abuse; Translations: [Other psychoactive substance abuse, in remission] 04-01-2022 Chronic Unclassified (1 source) G47.33 - Obstructive sleep apnea (adult) (pediatric) Unclassified (1 source) Carpal tunnel syndrome of left wrist Unclassified (2 sources) G56.02 - Carpal tunnel syndrome, left upper limb Unclassified (1 source) Cough, unspecified; Translations: [Cough, unspecified] Onset: Urinary tract infections (8 sources) Cystitis; Translations: [Cystitis, unspecified without hematuria] 04-01-2022 Episodic Past or Other Problems Problem Classification Problem Date Documented Da te Episodic/Chronic Administrative/social admission (13 sources) Patient encounter status; Translations: [Encounter for pre-employment examination] Onset: 03-15-2024 04-01-2022 Episodic Fever of unknown origin (8 sources) Fever; Translations: [Fever, unspecified] Onset: 02-13-2017 02-13-2017 Episodic Other lower respiratory disease (7 sources) Cough; Translations: [Cough] Onset: 06-05-2016 06-05-2016 Episodic Other screening for suspected conditions (not mental disorders or infectious disease) (5 sources) Encounter for screening for diabetes mellitus; Translations: [Screening for diabetes mellitus] Onset: 05-17-2024 04-23-2022 Episodic Other upper respiratory disease (12 sources) Congestion of nasal sinus; Translations: [Pain in throat] Onset: 05-26-2016 02-21-2017 Episodic Sprains and strains (12 sources) Strain of tendon of foot and ankle; Translations: [Strain of unspecified muscle and tendon at ankle and foot level, right foot, initial encounter] Onset: 01-24-2024 04-01-2022 Episodic Results Test Name Value Interpretation Reference Range Facility Internal Medicine Office Vis andrea 11-17-2024 Internal Medicine Office Visit [facility] [address] [place] [address] OFFICE VISIT Date of Service: 11/17/24 MR#: [id number] Acct: [id number] Name: KADIE MAK Shelli Rep #: [id number] : 1980 Provider: SMITA John Age/Sex: 44/F Location: [facility] Status: Signed Intake Vital Signs 09/03/24 08:54 11/17/24 07:36 Height 5 ft 4 in 5 ft 4 in Weight: 221 lb 4 oz 220 lb 6 oz BMI 38.0 37.8 BP 133/84 H 112/70 Blood Pressure Location Lt brachial Rt brachial Position Sitting Sitting Respiration 16 16 Pulse 67 69 Pulse Source Monitor Monitor Temp 98.4 F 96.7 F L Temp Source Temporal Temporal Pulse Oximetry (%) 98 97 Oxygen Delivery Method room air room air Intake Visit Reasons: left hand numb - past 2 weeks Chief Complaint: left hand numb 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 Accompanied by: Self Is patient in pain?: No Allergies duloxetine (From Cymbalta) Allergy (Verified 11/17/24 07:30) Rash sulfamethoxazole (From Bactrim) Adverse Reaction (Mild, Verified 11/17/24 07:30) Headache and elevated BP trimethoprim (From Bactrim) Adverse Reaction (Mild, Verified 11/17/24 07:30) Headache and elevated BP Medications ???Medication ???Instructions ???Recorded ???Confirmed ???Type buprenorphine 2 mg-naloxone 0.5 mg 1 tab sublingual TID 09/14/19 History sublingual tablet multivitamin 1 ea PO DAILY 10/02/19 11/17/24 Hi story elderberry fruit 350 mg capsule mg PO 02/26/22 11/17/24 History sumatriptan succinate 6 mg/0.5 mL 6 mg (0.5 mL) subcut PRN PRN 04/2911/17/24 Rx subcutaneous pen injector Migraine Symptoms #1 mL hydrochlorothiazide 25 mg tablet 25 mg PO DAILY #90 tabs 11/03/24 0 11/03/24 Rx escitalopram oxalate 10 mg tablet 10 mg PO DAILY #30 tabs 11/08/24 11/17/24 Rx (Lexapro) methylprednisolone 4 mg tablets in See Rx Instructions PO PER PKG D IR 11/17/24 11/17/24 Rx a dose pack (Medrol (Chet)) #21 tabs Nurse's Note: needs refill on sumitriptan left hand numb for about a month PENDING SALE TO [facility] Medical History Flu-like symptoms Gastroenteritis Left wrist sprain Chest pain Acid reflux Dysgraphia Fatigue Bronchitis Headache Gastroenteritis Right foot strain Left ovarian cyst Chronic pelvic pain in female Hypertension History of migraine headaches Surgical History History of left oophorectomy H/O sinus surgery History of tonsillectomy delivery delivered H/O: hysterectomy Family History Mother Cancer cervical Breast cancer Father Cancer Throat Diabetes Hypertension Grandmother Breast cancer Cancer Stomach Grandfather Cancer Prostate Grandmother Cancer brain Hypertension Grandfather Cancer lung Aunt Diabetes Son ADHD Social History household members: children housing: house current occupational status: employed current occupation: [employer] sexually active: No Smoking Status: Former smoker quit date: 03/29/06 pack-years: 14 Electronic Cigarette Use: not used alcohol intake: current alcohol intake frequency: holidays/special occasions only substance use type: former substance user Date of last use: 2013 and opiates caffeine: Yes what type of physical activity do you participate in: walking frequency: 5-6 times per week seatbelt use: always do you feel safe at home: Yes additional social history: 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 Patient states that she woke up one day and then hand was just numb. She noticed that it was all of the fingers except the pinky finger. Today she states that she can feel a little in the 4th digit. She has not had issues previously. 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 ROS Const Constitutional: No body ache, excessive sweating, fatigue, fever(s), frequent falls, headache(s), snoring, weakness, weight change, sleep problems or change in appetite Eyes Eyes: No blurry vision, change in vision, eye pain or Light sensitivity ENT ENT: No abnormal hearing, ear or mastoid pain, tinnitus, nasal congestion, headache(s), neck pain or sore throat Resp Respiratory: No cough, shortness of breath, snoring or wheezing Cardio Cardiology: No chest pain at rest, chest pain with exertion, excessive sweating, shortness of breath, dyspnea on exertion, lightheadedness, orthopnea or palpitations Gastro GI: No abdominal pain, change in bowel habits, constipation, cramping, diarrhea, nausea/dyspepsia or (more content not included)... Normal [facility] Urgent Care Visit Reporton 0 09-26-2024 Urgent Care Visit Report [facility] [address], [address] [place] [address] OFFICE VISIT Date of Service: 09/26/24 MR#: [id number] Acct: [id number] Name: KADIE MAK Rep #: [id number] : 1980 Provider: SMITA Carr Age/Sex: 44/F Location: [facility] Status: Signed Intake Vital Signs 09/03/24 08:54 09/26/24 12:09 Height 5 ft 4 in Weight: 221 lb 4 oz BMI 38.0 BP 133/84 H 110/70 Blood Pressure Location Lt brachial Position Sitting Sitting Respiration 16 16 Pulse 67 72 Pulse Source Monitor Temp 98.4 F 98.4 F Temp Source Temporal Oral Pulse Oximetry (%) 98 98 Oxygen Delivery Method room air room air Intake Visit Reasons: Cough Chief Complaint: productive cough Accompanied by: Self Allergies duloxetine (From Cymbalta) Allergy (Verified 09/26/24 12:13) Rash sulfamethoxazole (From Bactrim) Adverse Reaction (Mild, Verified 09/26/24 12:13) Headache and elevated BP trimethoprim (From Bactrim) Adverse Reaction (Mild, Verified 09/26/24 12:13) Headache and elevated BP Medications ???Medication ???Instructions ???Recorded ???Confirmed ???Type buprenorphine 2 mg-naloxone 0.5 mg 1 tab sublingual TID 09/14/19 History sublingual tablet multivitamin 1 ea PO DAILY 10/02/19 09/26/24 Hi story elderberry fruit 350 mg capsule mg PO 02/26/22 09/26/24 History sumatriptan succinate 6 mg/0.5 mL 6 mg (0.5 mL) subcut PRN PRN 04/2909/26/24 Rx subcutaneous pen injector Migraine Symptoms #1 mL escitalopram oxalate 10 mg tablet 10 mg PO DAILY #90 tabs 07/18/24 09/26/24 Rx (Lexapro) hydrochlorothiazide 25 mg tablet 25 mg PO DAILY #90 tabs 07/18/24 0 09/26/24 Rx amoxicillin 875 mg-potassium 1 tab PO BID #20 tabs 09/26/2404/22 Rx clavulanate 125 mg tablet benzonatate 200 mg capsule 200 mg PO TID PRN cough #20 caps 0 09/26/24 09/26/24 Rx Nurse's Note: Patient has a cough that she can't get rid of. Patient feels like since she got Covid in Mar for the third time she has been sick ever since. Patient was on a AB at the beginning of August for 10 days. Patient states she has thick green plegum and her voice comes and goes and she has a sore throat from drainage. PENDING SALE TO [facility] Medical History Flu-like symptoms Gastroenteritis Left wrist sprain Chest pain Acid reflux Dysgraphia Fatigue Bronchitis Headache Gastroenteritis Right foot strain Left ovarian cyst Chronic pelvic pain in female Hypertension History of migraine headaches Surgical History History of left oophorectomy H/O sinus surgery History of tonsillectomy delivery delivered H/O: hysterectomy Family History Mother Cancer cervical Breast cancer Father Cancer Throat Diabetes Hypertension Grandmother Breast cancer Cancer Stomach Grandfather Cancer Prostate Grandmother Cancer brain Hypertension Grandfather Cancer lung Aunt Diabetes Son ADHD Social History household members: children housing: house current occupational status: employed current occupation: [employer] sexually active: No Smoking Status: Former smoker quit date: 03/29/06 pack-years: 14 Electronic Cigarette Use: not used alcohol intake: current alcohol intake frequency: holidays/special occasions only substance use type: former substance user Date of last use: 2013 and opiates caffeine: Yes what type of physical activity do you participate in: walking frequency: 5-6 times per week seatbelt use: always do you feel safe at home: Yes additional social history: 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 Currently no complaints of fever, chills, myalgias, fatigue, runny nose, or nausea/vomiting/diar jonah. No complaints of chest pain/shortness of breath/dyspnea on exertion. No close contacts with similar complaints. No other associated symptoms and no other alleviating/aggravat ing factors. ROS Const Constitutional: No other (as above) Exam Const General: cooperative, healthy appearing and no acute distress Nutritional Appearance: average body habitus Orientation: alert, awake and oriented x3 HENMT Head: normal to inspection Ears: hearin (more content not included)... Normal [facility] Urgent Care Visit Reporton 0 09-03-2024 Urgent Care Visit Report [facility] [address], [address] [place] [address] OFFICE VISIT Date of Service: 09/03/24 MR#: [id number] Acct: [id number] Name: KADIE MAK Rep #: [id number] : 1980 Provider: HOLLY villanueva Age/Sex: 44/F Location: [facility] Status: Signed Intake Vital Signs 05/17/24 11:41 09/03/24 08:54 Height 5 ft 4 in 5 ft 4 in Weight: 221 lb 4 oz BMI 38.0 BP 133/84 H Blood Pressure Location Lt brachial Position Sitting Respiration 16 Pulse 67 Pulse Source Monitor Temp 98.4 F Temp Source Temporal Pulse Oximetry (%) 98 Oxygen Delivery Method room air Intake Visit Reasons: SINUS COMPLAINT/ST/MALLY/BA CK PAIN Chief Complaint: productive cough Is patient in pain?: Yes (back pain ) Pain scale (1-10): 6 Allergies duloxetine (From Cymbalta) Allergy (Verified 09/03/24 08:52) Rash sulfamethoxazole (From Bactrim) Adverse Reaction (Mild, Verified 09/03/24 08:52) Headache and elevated BP trimethoprim (From Bactrim) Adverse Reaction (Mild, Verified 09/03/24 08:52) Headache and elevated BP Medications ???Medication ???Instructions ???Recorded ???Confirmed ???Type buprenorphine 2 mg-naloxone 0.5 mg 1 tab sublingual TID 09/14/19 History sublingual tablet multivitamin 1 ea PO DAILY 10/02/19 09/03/24 Hi story elderberry fruit 350 mg capsule mg PO 02/26/22 09/03/24 History sumatriptan succinate 6 mg/0.5 mL 6 mg (0.5 mL) subcut PRN PRN 04/2909/03/24 Rx subcutaneous pen injector Migraine Symptoms #1 mL escitalopram oxalate 10 mg tablet 10 mg PO DAILY #90 tabs 07/18/24 09/03/24 Rx (Lexapro) hydrochlorothiazide 25 mg tablet 25 mg PO DAILY #90 tabs 07/18/24 0 09/03/24 Rx doxycycline hyclate 100 mg capsule 100 mg PO BID 7 days #14 caps 09/03/24 Rx prednisone 20 mg tablet 40 mg (2 x 20 mg) PO QDAY 5 days 0 09/03/24 09/03/24 Rx #10 tabs Patient : No PFSH Medical History Flu-like symptoms Gastroenteritis Left wrist sprain Chest pain Acid reflux Dysgraphia Fatigue Bronchitis Headache Gastroenteritis Right foot strain Left ovarian cyst Chronic pelvic pain in female Hypertension History of migraine headaches Surgical History History of left oophorectomy H/O sinus surgery History of tonsillectomy delivery delivered H/O: hysterectomy Family History Mother Cancer cervical Breast cancer Father Cancer Throat Diabetes Hypertension Grandmother Breast cancer Cancer Stomach Grandfather Cancer Prostate Grandmother Cancer brain Hypertension Grandfather Cancer lung Aunt Diabetes Son ADHD Social History household members: children housing: house current occupational status: employed current occupation: [employer] sexually active: No Smoking Status: Former smoker quit date: 03/29/06 pack-years: 14 Electronic Cigarette Use: not used alcohol intake: current alcohol intake frequency: holidays/special occasions only substance use type: former substance user Date of last use: 2014 and opiates caffeine: Yes what type of physical activity do you participate in: walking frequency: 5-6 times per week seatbelt use: always do you feel safe at home: Yes additional social history: 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 She states she originally noted chills and fever. She also notes a new cough that has become productive over the last three days. She acknowledges body aches. She works in a [employer] with many sick contacts. ROS Const Constitutional: Positive for body ache and chills; No fatigue, fever(s), headache(s), sleep problems, abnormal sleep pattern or change in appetite Eyes Eyes: No blurry vision, change in vision, double vision, irritation, discharge, vision loss, dry eyes, bulging eyes, floaters, visual disturbances, eye pain, Light sensitivity, spots in vision, tunnel vision or other ENT ENT: Positive for ear or mastoid pain (Left), nasal congestion, nasal discharge and sore throat; No ear discharge, ear pressure, tinnitus, dizziness/vertigo, nosebleed/epistaxis, nose pain, sinus pressure, sinus pain, post nasal drip, headache(s), facial pain, dental pain, difficulty swallowing, bad breath, hoarseness, lip swelling, mouth lesions, mouth pain, neck pain, tongue swelling or throat swelling Resp Respiratory: Positive for cough Cough: Yes productive, change in phlegm co (more content not included)... Normal [facility] XR Chest 2 Viewson No acute consolidative process. Report Dictated on Electronically Signed By: Ej Steele DR Electronically Signed Date/Time: 07/14/2024 8:20 PM EDT [facility] Patient Name: KADIE MAK : 1980 Exam Date/Time: 07/14/2024 11:08 Procedure: XR CHEST 2 VIEWS Ordering Provider: ALCOCER MICHELLE Reason For Exam: r76.12 Clinical History: r76.12 preemployment physical Comparison: None Technique: PA and lateral radiographs were obtained of the chest. Findings: The heart size and mediastinal contours are normal. Pulmonary vascularity is normal and there is no pneumothorax. The lungs are clear with no acute infiltrate or effusion. No displaced rib fractures seen. [facility] Ej Steele MD - 07/14/2024 Patient Name: KADIE MAK : 1980 Exam Date/Time: 07/14/2024 11:08 Procedure: XR CHEST 2 VIEWS Ordering Provider: ALCOCER MICHELLE Reason For Exam: r76.12 Clinical History: r76.12 preemployment physical Comparison: None Technique: PA and lateral radiographs were obtained of the chest. Findings: The heart size and mediastinal contours are normal. Pulmonary vascularity is normal and there is no pneumothorax. The lungs are clear with no acute infiltrate or effusion. No displaced rib fractures seen. IMPRESSION: No acute consolidative process. Report Dictated on Electronically Signed By: Ej Steele DR Electronically Signed Date/Time: 07/14/2024 8:20 PM EDT [facility] Study observation (narrative) [facility] XR Chest 2 ViewsOrdered By: Ej Steele on 07-14-2024 [employer] Work Phone: No Panel InformationOrdered By: Austin Back on 06-20-2024 Influenza Types A,B Rapid (Clinic) Negative [facility] POC SARS CoV-2 Antigen Negative [facility] Rapid group A Streptococcus antigen assay at point of careOrdered By: Austin Back on 06-20-2024 S. pyogenes Ag IA.rapid Ql (Throat) Negative [facility] Urgent Care Visit Reporton 0 06-20-2024 Urgent Care Visit Report [facility] [address], [address] [place] [address] OFFICE VISIT Date of Service: 06/20/24 MR#: [id number] Acct: [id number] Name: KADIE MAK Rep #: [id number] : 1980 Provider: SMITA Carr Age/Sex: 44/F Location: [facility] Status: Signed Intake Vital Signs 05/17/24 11:41 06/20/24 12:17 Height 5 ft 4 in BP 108/58 L Blood Pressure Location Lt brachial Position Sitting Respiration 16 Pulse 72 Pulse Source NIBP Temp 98.6 F Temp Source Oral Pulse Oximetry (%) 96 Oxygen Delivery Method room air Intake Visit Reasons: COUGH, SORE THROAT, BODY ACHES Chief Complaint: cough, ST, BA, wheeze 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 Is patient in pain?: No Allergies duloxetine (From Cymbalta) Allergy (Verified 06/20/24 12:18) Rash sulfamethoxazole (From Bactrim) Adverse Reaction (Mild, Verified 06/20/24 12:18) Headache and elevated BP trimethoprim (From Bactrim) Adverse Reaction (Mild, Verified 06/20/24 12:18) Headache and elevated BP Is last menstrual period known: No Post menopausal: No Patient : No Have you fallen in the past year?: No Nurse's Note: cough, ST, BA, wheeze x3 days. believes she was exposed to strep by sons toothbrush. denies fever. PENDING SALE TO [facility] Medical History (Updated 05/29/24 @ 11:10 by HOLLY Mares) Flu-like symptoms Gastroenteritis Left wrist sprain Chest pain Acid reflux Dysgraphia Fatigue Bronchitis Headache Gastroenteritis Right foot strain Left ovarian cyst Chronic pelvic pain in female Hypertension History of migraine headaches Surgical History History of left oophorectomy H/O sinus surgery History of tonsillectomy delivery delivered H/O: hysterectomy Family History (Updated 05/17/24 @ 11:[address] Natalia Patton MD) Mother Cancer cervical Breast cancer Father Cancer Throat Diabetes Hypertension Grandmother Breast cancer Cancer Stomach Grandfather Cancer Prostate Grandmother Cancer brain Hypertension Grandfather Cancer lung Aunt Diabetes Son ADHD Social History (Updated 05/17/24 @ 11:[address] Natalia Patton MD) household members: children housing: house current occupational status: employed current occupation: [employer] sexually active: No Smoking Status: Former smoker quit date: 03/29/06 pack-years: 14 Electronic Cigarette Use: not used alcohol intake: current alcohol intake frequency: holidays/special occasions only substance use type: former substance user Date of last use: 2013 and opiates caffeine: Yes what type of physical activity do you participate in: walking frequency: 5-6 times per week seatbelt use: always do you feel safe at home: Yes additional social history: 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 No c/o fever, chills, fatigue, congestion/ runny nose. Patient notes no complaints of chest pain or shortness of breath or dyspnea on exertion. Several close contacts recently dx???d w/ similar URI complaints. No [id number]-[id number] products taken to assist. Non-smoker. No other associated symptoms and no other alleviating/aggravat ing factors. ROS Const Constitutional: No other (As above) Exam Const General: cooperative, healthy appearing and no acute distress Orientation: alert, awake and oriented x3 HENMT Head: normal to inspection Ears: hearing grossly normal bilaterally, external ears normal, TM's normal bilaterally and EAC's normal Nose: external nose normal, nares normal, septum normal and clear nasal discharge Face and sinus: normal facial exam, sinuses nontender and face symmetric Mouth: oral mucosae normal, lip normal, tongue normal and oropharynx normal Throat: posterior oropharynx normal, tonsils with trace erythema without exudate or hypertrophy, uvula midline and no postnasal drainage Eyes General: appearance normal, both eyes and all related structures Neck Neck: normal visual inspection, full ROM, no lymphadenopathy, no meningeal signs and supple Neck mass: No Thyroid: thyroid normal Lymphatic: no lymphadenopathy noted Chest Chest palpation inspection: normal inspection of the chest Resp Effort Inspection: normal respiratory effort, able to speak in complete sentences and cough Quality of cough: dry (nonproductive in office today) Auscultation: Bilateral: Clear to Auscultation Cardio Palpation: normal PMI Rate: Regular Rhythm: regular rhythm Heart Sounds: S1 normal, S2 normal, no gallops, no murmurs and no (more content not included)... Normal [facility] Urgent Care Visit Reporton 0 05-29-2024 Urgent Care Visit Report [facility] [address], [address] [place] [address] OFFICE VISIT Date of Service: 05/29/24 MR#: [id number] Acct: [id number] Name: KADIE MAK Rep #: [id number] : 1980 Provider: HOLLY Moise Age/Sex: 44/F Location: [facility] Status: Signed Intake Vital Signs 05/17/24 11:41 05/29/24 10:47 Height 5 ft 4 in Weight: 223 lb 6 oz BMI 38.3 BP 128/76 H 122/78 H Blood Pressure Location Lt brachial Position Sitting Sitting Respiration 16 Pulse 67 73 Pulse Source Monitor Temp 96 F L 98.4 F Temp Source Temporal Oral Pulse Oximetry (%) 98 97 Oxygen Delivery Method room air room air Intake Visit Reasons: FEVER, HEAD CONGESTION Accompanied by: Son Allergies duloxetine (From Cymbalta) Allergy (Verified 05/29/24 10:47) Rash sulfamethoxazole (From Bactrim) Adverse Reaction (Mild, Verified 05/29/24 10:47) Headache and elevated BP trimethoprim (From Bactrim) Adverse Reaction (Mild, Verified 05/29/24 10:47) Headache and elevated BP Medications ???Medication ???Instructions ???Recorded ???Confirmed ???Type buprenorphine 2 mg-naloxone 0.5 mg 1 tab sublingual TID 09/14/19 History sublingual tablet multivitamin 1 ea PO DAILY 10/02/19 05/29/24 Hi story elderberry fruit 350 mg capsule mg PO 02/26/22 05/29/24 History potassium chloride 20 mEq 40 meq (2 x 20 mEq) PO ONCE #2 tab s 03/15/24 05/29/24 Rx tablet,extended release(part/cryst) escitalopram oxalate 10 mg tablet 10 mg PO DAILY #90 tabs 03/16/24 05/29/24 Rx (Lexapro) hydrochlorothiazide 25 mg tablet 25 mg PO DAILY #90 tabs 03/16/24 0 05/29/24 Rx pantoprazole 40 mg tablet,delayed 40 mg PO QAM #30 tabs 05/17/24 Rx release (Protonix) sumatriptan succinate 6 mg/0.5 mL 6 mg (0.5 mL) subcut PRN PRN 04/2905/29/24 Rx subcutaneous pen injector Migraine Symptoms #1 mL amoxicillin 875 mg-potassium 1 tab PO Q12H 10 days #20 tabs 05/29/24 Rx clavulanate 125 mg tablet Nurse's Note: Patient has a fever,congestion and dizziness,BA and she was here on . Patient was given a AB and has been taking it. Patient states her throat feels better. PENDING SALE TO [facility] Medical History (Updated 05/29/24 @ 11:10 by HOLLY Mares) Flu-like symptoms Gastroenteritis Left wrist sprain Chest pain Acid reflux Dysgraphia Fatigue Bronchitis Headache Gastroenteritis Right foot strain Left ovarian cyst Chronic pelvic pain in female Hypertension History of migraine headaches Surgical History History of left oophorectomy H/O sinus surgery History of tonsillectomy delivery delivered H/O: hysterectomy Family History (Updated 05/17/24 @ 11:[address] Natalia Patton MD) Mother Cancer cervical Breast cancer Father Cancer Throat Diabetes Hypertension Grandmother Breast cancer Cancer Stomach Grandfather Cancer Prostate Grandmother Cancer brain Hypertension Grandfather Cancer lung Aunt Diabetes Son ADHD Social History (Updated 05/17/24 @ 11:[address] Natalia Patton MD) household members: children housing: house current occupational status: employed current occupation: [employer] sexually active: No Smoking Status: Former smoker quit date: 03/29/06 pack-years: 14 Electronic Cigarette Use: not used alcohol intake: current alcohol intake frequency: holidays/special occasions only substance use type: former substance user Date of last use: 2013 and opiates caffeine: Yes what type of physical activity do you participate in: walking frequency: 5-6 times per week seatbelt use: always do you feel safe at home: Yes additional social history: 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 Based on her clinical appearance she was started on amoxicillin and has been taking it as directed. She notes that her throat has improved however she now notes body aches and congestion fever of about 100 and cough. ROS: As noted in HPI Physical Exam: VITALS: Reviewed. GEN: Mildly ill-appearing, well-developed, NAD. PSYCH: AOx3. Normal memory, mood, and affect. HEENT -Eyes: -No discharge or redness; -Ears: -Mouth and throat: Moist mucous membranes. NECK: CV: Regular rate and rhythm LUNGS: Normal respiratory effort. Lungs clear bilaterally. SKIN: Warm, well perfused. No skin rashes or abnormal lesions noted. MSK: Normal gait. NEURO: Ambulating with no limitations. Normal muscle strength and tone. No focal deficits. Coding Level of Care Code Off vis,est,level (more content not included)... Normal [facility] - Microbiology an d Antimicrobial susceptibilityOrdered By: Meek Gloria on 05-25-2024 SARS-CoV-2 (COVID-19) RNA SANDRITA+probe Ql (Unsp spec) Not detected [facility] No Panel InformationOrdered By: Meek Gloria on 05-25-2024 Influenza Types A,B Rapid (Clinic) Negative [facility] Urgent Care Visit Reporton 0 05-25-2024 Urgent Care Visit Report [facility] [address], [address] [place] [address] OFFICE VISIT Date of Service: 05/25/24 MR#: [id number] Acct: [id number] Name: KADIE MAK Rep #: [id number] : 1980 Provider: SMITA Cerrato Age/Sex: 44/F Location: [facility] Status: Signed Intake Vital Signs 05/17/24 11:41 05/25/24 11:30 Height 5 ft 4 in Weight: 223 lb 6 oz BMI 38.3 BP 128/76 H 120/62 Blood Pressure Location Lt brachial Position Sitting Sitting Respiration 16 Pulse 67 90 Pulse Source Monitor Temp 96 F L 98.7 F Temp Source Temporal Oral Pulse Oximetry (%) 98 96 Oxygen Delivery Method room air room air Intake Visit Reasons: ST/FEVER/BA/CHILLS Accompanied by: Self Allergies duloxetine (From Cymbalta) Allergy (Verified 05/25/24 11:37) Rash sulfamethoxazole (From Bactrim) Adverse Reaction (Mild, Verified 05/25/24 11:37) Headache and elevated BP trimethoprim (From Bactrim) Adverse Reaction (Mild, Verified 05/25/24 11:37) Headache and elevated BP Medications ???Medication ???Instructions ???Recorded ???Confirmed ???Type buprenorphine 2 mg-naloxone 0.5 mg 1 tab sublingual TID 09/14/19 History sublingual tablet multivitamin 1 ea PO DAILY 10/02/19 05/25/24 Hi story elderberry fruit 350 mg capsule mg PO 02/26/22 05/25/24 History potassium chloride 20 mEq 40 meq (2 x 20 mEq) PO ONCE #2 tab s 03/15/24 05/25/24 Rx tablet,extended release(part/cryst) escitalopram oxalate 10 mg tablet 10 mg PO DAILY #90 tabs 03/16/24 05/25/24 Rx (Lexapro) hydrochlorothiazide 25 mg tablet 25 mg PO DAILY #90 tabs 03/16/24 0 05/25/24 Rx pantoprazole 40 mg tablet,delayed 40 mg PO QAM #30 tabs 05/17/24 Rx release (Protonix) sumatriptan succinate 6 mg/0.5 mL 6 mg (0.5 mL) subcut PRN PRN 04/2905/25/24 Rx subcutaneous pen injector Migraine Symptoms #1 mL amoxicillin 875 mg-potassium 1 tab PO Q12H 10 days #20 tabs 05/25/24 Rx clavulanate 125 mg tablet Nurse's Note: Patient has a ST, fever and BA, chills. Patient states this has been going on since . Patient states last night her temp was 102.5. Patient is taking Advil cold and flu and ibuprofen. PENDING SALE TO [facility] Medical History Gastroenteritis Left wrist sprain Chest pain Acid reflux Dysgraphia Fatigue Bronchitis Headache Gastroenteritis Right foot strain Left ovarian cyst Chronic pelvic pain in female Hypertension History of migraine headaches Surgical History History of left oophorectomy H/O sinus surgery History of tonsillectomy delivery delivered H/O: hysterectomy Family History (Updated 05/17/24 @ 11:[address] Natalia Patton MD) Mother Cancer cervical Breast cancer Father Cancer Throat Diabetes Hypertension Grandmother Breast cancer Cancer Stomach Grandfather Cancer Prostate Grandmother Cancer brain Hypertension Grandfather Cancer lung Aunt Diabetes Son ADHD Social History (Updated 05/17/24 @ 11:[address] Natalia Patton MD) household members: children housing: house current occupational status: employed current occupation: [employer] sexually active: No Smoking Status: Former smoker quit date: 03/29/06 pack-years: 14 Electronic Cigarette Use: not used alcohol intake: current alcohol intake frequency: holidays/special occasions only substance use type: former substance user Date of last use: 2013 and opiates caffeine: Yes what type of physical activity do you participate in: walking frequency: 5-6 times per week seatbelt use: always do you feel safe at home: Yes additional social history: 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 Patient reports a fever Tmax of 102.5 ???F. She denies hemoptysis, shortness of breath or difficulty breathing. No nausea, vomiting or diarrhea. No loss of taste or smell. No other associated symptoms or alleviating/aggravat ing factors. ROS Const Constitutional: No other (As above) Exam Const General: cooperative and well developed HENMT Head: normal to inspection and atraumatic Ears: hearing grossly normal bilaterally Nose: nasal discharge clear Face and sinus: normal facial exam Mouth: oral mucosae normal Throat: abnormal tonsil bilaterally hypertrophy 1+ Resp Effort Inspection: normal respiratory effort and no audible wheezes Auscultation: Bilateral: Clear to Auscultation Cardio Palpation: normal PMI Rate: regular rate Rhythm: regular rhythm Neuro General: patient alert and C (more content not included)... Normal [facility] Urgent Care Visit Reporton 0 04-25-2024 Urgent Care Visit Report [facility] [address], [address] [place] [address] OFFICE VISIT Date of Service: 04/25/24 MR#: [id number] Acct: [id number] Name: KADIE MAK Rep #: [id number] : 1980 Provider: SMITA Carr Age/Sex: 44/F Location: [facility] Status: Signed Intake Vital Signs 03/14/24 15:33 04/25/24 11:53 Height 5 ft 4 in BP 130/72 H Blood Pressure Location Lt brachial Position Sitting Respiration 14 Pulse 64 Pulse Source NIBP Temp 98.0 F Temp Source Oral Pulse Oximetry (%) 97 Oxygen Delivery Method room air Intake Visit Reasons: STOMACH FLU Chief Complaint: vomiting, diarrhea 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 Is patient in pain?: No Allergies duloxetine (From Cymbalta) Allergy (Verified 04/25/24 11:55) Rash sulfamethoxazole (From Bactrim) Adverse Reaction (Mild, Verified 04/25/24 11:55) Headache and elevated BP trimethoprim (From Bactrim) Adverse Reaction (Mild, Verified 04/25/24 11:55) Headache and elevated BP Is last menstrual period known: No Post menopausal: No Patient : No Have you fallen in the past year?: No Nurse's Note: vomiting, diarrhea x 4 days. vomiting has calmed down at this point but still BA, abd/back pain from vomiting, nausea, diarrhea. had fever yesterday 102. PENDING SALE TO [facility] Medical History (Updated 04/25/24 @ 12:03 by Austin ORDOÑEZ, PA) Gastroenteritis Left wrist sprain Chest pain Acid reflux Dysgraphia Fatigue Bronchitis Headache Gastroenteritis Right foot strain Left ovarian cyst Chronic pelvic pain in female Hypertension History of migraine headaches Surgical History History of left oophorectomy H/O sinus surgery History of tonsillectomy delivery delivered H/O: hysterectomy Family History Mother Cancer cervical Breast cancer Father Cancer Throat Diabetes Hypertension Grandmother Breast cancer Cancer Stomach Grandfather Cancer Prostate Grandmother Cancer brain Hypertension Grandfather Cancer lung Aunt Diabetes Social History household members: children housing: house current occupational status: employed current occupation: [employer] sexually active: No Smoking Status: Former smoker quit date: 03/29/06 pack-years: 14 Electronic Cigarette Use: not used alcohol intake: current alcohol intake frequency: holidays/special occasions only substance use type: former substance user Date of last use: 2014 and opiates caffeine: Yes what type of physical activity do you participate in: walking frequency: 5-6 times per week seatbelt use: always do you feel safe at home: Yes additional social history: 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 No history of hematemesis, he matochezia, or melena. No complaints of fever, sweats, rash, or chest pressure/shortness of breath/dyspnea on exertion. Non-smoker. Several close contacts with similar GI complaints. No ubuj-pdy-onetrwl products taken to assist. No other associated symptoms and no other alleviating/aggravat ing factors. ROS Const Constitutional: No other (As above) Exam Const General: cooperative, healthy appearing and no acute distress Orientation: alert and awake HENOH Head: normal to inspection Ears: hearing grossly normal bilaterally, external ears normal, TM's normal bilaterally and EAC's normal Nose: external nose normal, nares normal, septum normal and no nasal discharge Face and sinus: normal facial exam, sinuses nontender and face symmetric Mouth: oral mucosae normal, lip normal, tongue normal, oropharynx normal and moist mucous membranes Throat: posterior oropharynx normal, tonsils normal, uvula midline and no postnasal drainage Eyes General: appearance normal, both eyes and all related structures Neck Neck: normal visual inspection, full ROM, no lymphadenopathy, no meningeal signs and supple Neck mass: No Thyroid: thyroid normal Lymphatic: no lymphadenopathy noted Chest Chest palpation inspection: normal inspection of the chest Resp Effort Inspection: normal respiratory effort and able to speak in complete sentences Auscultation: Bilateral: Clear to Auscultation Cardio Palpation: normal PMI Rate: regular rate Rhythm: regular rhythm Heart Sounds: S1 normal, S2 normal, no gallops, no murmurs and no rubs Pulses: radial pulses present GI Inspection: normal to inspection Palpation: soft, no hepatosplenomegaly, not firm, no guarding and tender o (more content not included)... Normal [facility] Internal Medicine Office Vis andrea 04-09-2024 Internal Medicine Office Visit [facility] [address] [place] [address] [place] [address] OFFICE VISIT Date of Service: 05/17/24 MR#: [id number] Acct: [id number] Name: KADIE MAK Rep #: [id number] : 1980 Provider: Dr. Natalia lux MD Age/Sex: 44/F Location: [facility] Status: Signed Intake Vital Signs 03/14/24 15:33 05/17/24 11:41 Height 5 ft 4 in 5 ft 4 in Weight: 223 lb 6 oz BMI 38.3 BP 128/76 H Blood Pressure Location Lt brachial Position Sitting Respiration 16 Pulse 67 Pulse Source Monitor Temp 96 F L Temp Source Temporal Pulse Oximetry (%) 98 Oxygen Delivery Method room air Intake Visit Reasons: MED FU Chief Complaint: indigestion after eating and back right sided pain 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 Accompanied by: Self Is patient in pain?: No Allergies duloxetine (From Cymbalta) Allergy (Verified 05/17/24 11:40) Rash sulfamethoxazole (From Bactrim) Adverse Reaction (Mild, Verified 05/17/24 11:40) Headache and elevated BP trimethoprim (From Bactrim) Adverse Reaction (Mild, Verified 05/17/24 11:40) Headache and elevated BP Medications ???Medication ???Instructions ???Recorded ???Confirmed ???Type buprenorphine 2 mg-naloxone 0.5 mg 1 tab sublingual TID 09/14/19 History sublingual tablet multivitamin 1 ea PO DAILY 10/02/19 05/17/24 Hi story elderberry fruit 350 mg capsule mg PO 02/26/22 05/17/24 History potassium chloride 20 mEq 40 meq (2 x 20 mEq) PO ONCE #2 tab s 03/15/24 05/17/24 Rx tablet,extended release(part/cryst) escitalopram oxalate 10 mg tablet 10 mg PO DAILY #90 tabs 03/16/24 05/17/24 Rx (Lexapro) hydrochlorothiazide 25 mg tablet 25 mg PO DAILY #90 tabs 03/16/24 0 05/17/24 Rx pantoprazole 40 mg tablet,delayed 40 mg PO QAM #30 tabs 05/17/24 Rx release (Protonix) sumatriptan succinate 6 mg/0.5 mL 6 mg (0.5 mL) subcut PRN PRN 04/2905/17/24 Rx subcutaneous pen injector Migraine Symptoms #1 mL Have you fallen in the past year?: No PFSH Medical History Gastroenteritis Left wrist sprain Chest pain Acid reflux Dysgraphia Fatigue Bronchitis Headache Gastroenteritis Right foot strain Left ovarian cyst Chronic pelvic pain in female Hypertension History of migraine headaches Surgical History History of left oophorectomy H/O sinus surgery History of tonsillectomy delivery delivered H/O: hysterectomy Family History (Updated 05/17/24 @ 11:[address] Natalia Patton MD) Mother Cancer cervical Breast cancer Father Cancer Throat Diabetes Hypertension Grandmother Breast cancer Cancer Stomach Grandfather Cancer Prostate Grandmother Cancer brain Hypertension Grandfather Cancer lung Aunt Diabetes Son ADHD Social History (Updated 05/17/24 @ 11:[address] Natalia Patton MD) household members: children housing: house current occupational status: employed current occupation: [employer] sexually active: No Smoking Status: Former smoker quit date: 03/29/06 pack-years: 14 Electronic Cigarette Use: not used alcohol intake: current alcohol intake frequency: holidays/special occasions only substance use type: former substance user Date of last use: 2013 and opiates caffeine: Yes what type of physical activity do you participate in: walking frequency: 5-6 times per week seatbelt use: always do you feel safe at home: Yes additional social history: 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 She is due for some follow up blood work and is due for some screening.??? She doesn't want a flu shot.??? She doesn't smoke and does need refills today.??? She reports she is eating healthy.??? 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 The patient has a history of drug abuse.??? She is following with a treatment program ([facility]) and doing well.??? She still participates in counseling and meetings once monthly.??? She has been sober since 2013 and gets her suboxone through the program.??? She reports she has a good support system in place. She doesn't check her blood pressure at home regularly, but does occasionally check it and it has been well controlled.. She is taking her HCTZ as prescribed without problems. She does watch her salt intake. The patient returned her BiPAP since she was last seen due to non-compliance. She had tried difference masks including nasal pillows and didn't tolerate any of them. She doesn't konw if she is still snoring or not. She reports she still feels tired through (more content not included)... Normal [facility] Quantiferon TB-Gold+on 03-20 QFT MITOGEN NAYLA > 10.00 Normal . [facility] Comment on above: Order Comment: Mikel shafer Comment: A duplicate report has been generated due to demographic Specimen Comment: updates. Performed By: #### L 3400.8000 #### [facility] [address] [place], [address] QFT NIL VALUE 0 IU/mL Normal . [facility] Comment on above: Order Comment: Mikel shafer Comment: A duplicate report has been generated due to demographic Specimen Comment: updates. Performed By: #### L 3400.8000 #### [facility] [address] [place], [address] QFT TB GOLD+ Comment Normal . [facility] Comment on above: Order Comment: Mikel shafer Comment: A duplicate report has been generated due to demographic Specimen Comment: updates. Result Comment: Ronaldo tiFERON-TB Gold Plus is a qualitative indirect test for M tuberculosis infection (including disease) and is intended for use in conjunction with risk assessment, radiography, and other medical and diagnostic evaluations. The QuantiFERON-TB Gold Plus result is determined by subtracting the Nil value from either TB antigen (Ag) value. The Mitogen tube serves as a control for the test. Performed By: #### L 3400.8000 #### [facility] [address] [place], [address] QFT TB POS CRIT Negative Normal Negative [facility] Comment on above: Order Comment: Mikel shafer Comment: A duplicate report has been generated due to demographic Specimen Comment: updates. Result Comment: No r esponse to M tuberculosis antigens detected. Infection with M tuberculosis is unlikely, but high risk individuals should be considered for additional testing (ATS/IDSA/CDC Clinical Practice Guidelines, 2017). The reference range is an Antigen minus Nil result of <0.35 IU/mL. The specimen received for QuantiFERON testing was incubated by the ordering institution. Specific procedures outlined in our Directory of Services and in the package insert for the QuantiFERON Gold (In Tube) test must be followed to enable for proper stimulation of cells for the production of interferon gamma. Chemiluminescence immunoassay methodology Performed at: [facility] [id number] Wire Stretcher: Frank Wilson PhD, Phone: [phone] Performed By: #### L 3400.8000 #### [facility] [address] [place], [place], [id number] QFT TB1+ AG NAYLA 0 IU/mL Normal . [facility] Comment on above: Order Comment: Speci men Comment: A duplicate report has been generated due to demographic Specimen Comment: updates. Performed By: #### L 3400.8000 #### [facility] [address] [place], [place], [id number] QFT TB2+ AG NAYLA 0 IU/mL Normal . [facility] Comment on above: Order Comment: Speci men Comment: A duplicate report has been generated due to demographic Specimen Comment: updates. Performed By: #### L 3400.8000 #### [facility] [address] [place], [place], [address] Office Visit Reporton 2023 Office Visit Report [facility] [address] [place] [address] OFFICE VISIT Date of Service: 03/15/24 MR#: [id number] Acct: [id number] Patient: KADIE MAK Rep #: [id number] : 1980 Provider: SMITA Carr Age/Sex: 44/F Location: [facility] Status: Signed Intake Vital Signs 03/14/24 15:33 Height 5 ft 4 in Intake Visit Reasons: FIT TEST, QUANTIFERON / [place] Chief Complaint: left wrist injury Allergies duloxetine (From Cymbalta) Allergy (Verified 01/24/24 14:38) Rash sulfamethoxazole (From Bactrim) Adverse Reaction (Mild, Verified 01/24/24 14:38) Headache and elevated BP trimethoprim (From Bactrim) Adverse Reaction (Mild, Verified 01/24/24 14:38) Headache and elevated BP Office Procedures [facility] Billing Sheet Testing Pre-Employment PE: Yes Respirator Fit Testing: Yes Occquant-Quantiferon : Yes 03/20/24 0620 Date Austin Tanner Signature: Date (if applicable) CC: Normal [facility] Vitamin D,25 Hydroxyon 03-16 Vitamin D 25-OH 26.4 ng/mL Normal [facility] Comment on above: Result Comment: Liana min D 25(OH) Status Range Deficiency <20 ng/mL (50nmol/L) Insufficiency 20 - 30 ng/mL (50 - 75 nmol/L) Sufficiency 30 - 100 ng/mL (75 - 250 nmol/L) Toxicity >100 ng/mL (>250 nmol/L) Performed By: #### L 506.1000, L100.0100, L501.9985, L500.4050 #### [facility] [address] [place], [address] CBC W/Diff, Automatedon 02-26 Absolute Lymph 2.21 X10 3/uL Normal 0.83-4.51 [facility] Comment on above: Performed By: #### L 506.1000, L100.0100, L501.9985, L500.4050 #### [facility] [address] [place], [address] Absolute Neut 2.6 X10 3/uL Normal 2.0-7.7 [facility] Comment on above: Performed By: #### L 506.1000, L100.0100, L501.9985, L500.4050 #### [facility] [address] [place], [address] Basophils/100 WBC (Bld) 0.4 % Normal 0-1 [facility] Comment on above: Performed By: #### L 506.1000, L100.0100, L501.9985, L500.4050 #### [facility] [address] [place], [address] Eosinophils/100 WBC (Bld) 4.3 % Normal 0-5 [facility] Comment on above: Performed By: #### L 506.1000, L100.0100, L501.9985, L500.4050 #### [facility] [address] [place], [address] Erythrocyte distribution width (RBC) [Ratio] 12.2 % Normal 11.6-14.6 [facility] Comment on above: Performed By: #### L 506.1000, L100.0100, L501.9985, L500.4050 #### [facility] [address] [place], [address] Hematocrit (Bld) [Volume fraction] 43.1 % Normal 37-47 [facility] Comment on above: Performed By: #### L 506.1000, L100.0100, L501.9985, L500.4050 #### [facility] [address] [place], [address] Hemoglobin (Bld) [Mass/Vol] 14.0 g/dL Normal 12.0-15.0 [facility] Comment on above: Performed By: #### L 506.1000, L100.0100, L501.9985, L500.4050 #### [facility] [address] [place], [address] IG% 0.200 Normal 0.0-0.9 [facility] Comment on above: Result Comment: IG% - Immature Granulocytes (promyelocytes, myelocytes and metamyelocytes) > 1% indicates that a LEFT SHIFT is Present. Performed By: #### L 506.1000, L100.0100, L501.9985, L500.4050 #### [facility] [address] [place], [address] Lymphocytes/100 WBC (Bld) 40.0 % Normal 19-41 [facility] Comment on above: Performed By: #### L 506.1000, L100.0100, L501.9985, L500.4050 #### [facility] [address] [place], [address] MCH (RBC) [Entitic mass] 27.8 pg Normal 27.0-32.0 [facility] Comment on above: Performed By: #### L 506.1000, L100.0100, L501.9985, L500.4050 #### [facility] [address] [place], [address] MCHC (RBC) [Mass/Vol] 32.5 g/dL Normal 32-36 [facility] Comment on above: Performed By: #### L 506.1000, L100.0100, L501.9985, L500.4050 #### [facility] [address] [place], [address] MCV (RBC) [Entitic vol] 85.7 fL Normal 81-99 [facility] Comment on above: Performed By: #### L 506.1000, L100.0100, L501.9985, L500.4050 #### [facility] [address] [place], [address] Monocytes/100 WBC (Bld) 8.5 % Normal 0-10 [facility] Comment on above: Performed By: #### L 506.1000, L100.0100, L501.9985, L500.4050 #### [facility] [address] [place], [address] Neutrophils/100 WBC (Bld) 46.6 % Low 47-70 [facility] Comment on above: Performed By: #### L 506.1000, L100.0100, L501.9985, L500.4050 #### [facility] [address] [place], [address] Nucleated RBC (Bld) [#/Vol] 0 10*3/uL Normal 0-5 [facility] Comment on above: Performed By: #### L 506.1000, L100.0100, L501.9985, L500.4050 #### [facility] [address] [place], [address] Platelet mean volume (Bld) [Entitic vol] 12.1 fL High 6.2-12.0 [facility] Comment on above: Performed By: #### L 506.1000, L100.0100, L501.9985, L500.4050 #### [facility] [address] [place], [address] Platelets (Bld) [#/Vol] 169 10*3/uL Normal 150-450 [facility] Comment on above: Performed By: #### L 506.1000, L100.0100, L501.9985, L500.4050 #### [facility] [address] [place], [address] RBC (Bld) [#/Vol] 5.03 10*6/uL Normal 4.2-5.4 [facility] Comment on above: Performed By: #### L 506.1000, L100.0100, L501.9985, L500.4050 #### [facility] [address] [place], [address] RDW SD 38.0 fl Normal 35.1-43.9 [facility] Comment on above: Performed By: #### L 506.1000, L100.0100, L501.9985, L500.4050 #### [facility] [address] [place], [address] WBC (Bld) [#/Vol] 5.5 10*3/uL Normal 4.4-11.0 [facility] Comment on above: Performed By: #### L 506.1000, L100.0100, L501.9985, L500.4050 #### [facility] [address] [place], [address] Comprehensive Metabolic Prof mion 03-15-2024 Albumin [Mass/Vol] 4.0 g/dL Normal 3.2-5.0 [facility] Comment on above: Order Comment: FASTI NG. COMING BACK ANOTHER DAY FOR THE LIPID. Performed By: #### L 506.1000, L100.0100, L501.9985, L500.4050 #### [facility] [address] [place], [address] Albumin/Globulin [Mass ratio] 1.0 {ratio} Normal 0.9-2.4 [facility] Comment on above: Order Comment: FASTI NG. COMING BACK ANOTHER DAY FOR THE LIPID. Performed By: #### L 506.1000, L100.0100, L501.9985, L500.4050 #### [facility] [address] [place], [address] ALK P 79 U/L Normal 45-117 [facility] Comment on above: Order Comment: FASTI NG. COMING BACK ANOTHER DAY FOR THE LIPID. Performed By: #### L 506.1000, L100.0100, L501.9985, L500.4050 #### [facility] [address] [place], [address] ALT [Catalytic activity/Vol] 82 U/L High 13-56 [facility] Comment on above: Order Comment: FASTI NG. COMING BACK ANOTHER DAY FOR THE LIPID. Performed By: #### L 506.1000, L100.0100, L501.9985, L500.4050 #### [facility] [address] [place], [address] AST [Catalytic activity/Vol] 40 U/L High 15-37 [facility] Comment on above: Order Comment: FASTI NG. COMING BACK ANOTHER DAY FOR THE LIPID. Performed By: #### L 506.1000, L100.0100, L501.9985, L500.4050 #### [facility] [address] [place], [address] Bilirubin [Mass/Vol] 0.40 mg/dL Normal 0.20-1.00 [facility] Comment on above: Order Comment: FASTI NG. COMING BACK ANOTHER DAY FOR THE LIPID. Result Comment: For patients on eltrombopag therapy, use of Dimension [place] TBIL is not recommended. Performed By: #### L 506.1000, L100.0100, L501.9985, L500.4050 #### [facility] [address] [place], [address] BUN/CRE 19.2 RATIO Normal 10-20 [facility] Comment on above: Order Comment: FASTI NG. COMING BACK ANOTHER DAY FOR THE LIPID. Performed By: #### L 506.1000, L100.0100, L501.9985, L500.4050 #### [facility] [address] [place], [address] CA,Total 9.6 mg/dL Normal 8.5-10.1 [facility] Comment on above: Order Comment: FASTI NG. COMING BACK ANOTHER DAY FOR THE LIPID. Performed By: #### L 506.1000, L100.0100, L501.9985, L500.4050 #### [facility] [address] [place], [address] Chloride [Moles/Vol] 102 mmol/L Normal 98-107 [facility] Comment on above: Order Comment: FASTI NG. COMING BACK ANOTHER DAY FOR THE LIPID. Performed By: #### L 506.1000, L100.0100, L501.9985, L500.4050 #### [facility] [address] [place], [address] CO2 [Moles/Vol] 31.0 mmol/L Normal 21.0-32.0 [facility] Comment on above: Order Comment: FASTI NG. COMING BACK ANOTHER DAY FOR THE LIPID. Performed By: #### L 506.1000, L100.0100, L501.9985, L500.4050 #### [facility] [address] [place], [address] Creatinine [Mass/Vol] 0.78 mg/dL Normal 0.55-1.02 [facility] Comment on above: Order Comment: FASTI NG. COMING BACK ANOTHER DAY FOR THE LIPID. Result Comment: The validity of the calculated GFR GFRAA in patients over 70 years has not been determined. Clinical correlation is essential. Performed By: #### L 506.1000, L100.0100, L501.9985, L500.4050 #### [facility] [address] [place], [address] EST GFR - AA 103 mL/min Normal >60 [facility] Comment on above: Order Comment: FASTI NG. COMING BACK ANOTHER DAY FOR THE LIPID. Result Comment: Afri can Kosovan GFR Calc Performed By: #### L 506.1000, L100.0100, L501.9985, L500.4050 #### [facility] [address] [place], [address] GAP 5 Normal 5-15 [facility] Comment on above: Order Comment: FASTI NG. COMING BACK ANOTHER DAY FOR THE LIPID. Performed By: #### L 506.1000, L100.0100, L501.9985, L500.4050 #### [facility] [address] [place], [address] GFR/1.73 sq M.predicted among non-blacks MDRD (S/P/Bld) [Vol rate/Area] 85 mL/min/{1.73_m2} Normal >60 [facility] Comment on above: Order Comment: FASTI NG. COMING BACK ANOTHER DAY FOR THE LIPID. Result Comment: Non- GFR Calc Performed By: #### L 506.1000, L100.0100, L501.9985, L500.4050 #### [facility] [address] [place], [address] Globulin (S) [Mass/Vol] 4.1 g/dL Normal 2.2-4.2 [facility] Comment on above: Order Comment: FASTI NG. COMING BACK ANOTHER DAY FOR THE LIPID. Performed By: #### L 506.1000, L100.0100, L501.9985, L500.4050 #### [facility] [address] [place], [address] Glucose [Mass/Vol] 122 mg/dL High 74-106 [facility] Comment on above: Order Comment: FASTI NG. COMING BACK ANOTHER DAY FOR THE LIPID. Result Comment: Fast ing Glucose result from 100 to 125 mg/dL suggests IMPAIRED HOMEOSTASIS per A.D.A. criteria. Performed By: #### L 506.1000, L100.0100, L501.9985, L500.4050 #### [facility] [address] [place], [address] Potassium [Moles/Vol] 3.3 mmol/L Low 3.5-5.1 [facility] Comment on above: Order Comment: FASTI NG. COMING BACK ANOTHER DAY FOR THE LIPID. Performed By: #### L 506.1000, L100.0100, L501.9985, L500.4050 #### [facility] [address] [place], [address] Sodium [Moles/Vol] 138 mmol/L Normal 136-145 [facility] Comment on above: Order Comment: FASTI NG. COMING BACK ANOTHER DAY FOR THE LIPID. Performed By: #### L 506.1000, L100.0100, L501.9985, L500.4050 #### [facility] [address] [place], [address] T PROT 8.1 g/dL Normal 6.4-8.2 [facility] Comment on above: Order Comment: FASTI NG. COMING BACK ANOTHER DAY FOR THE LIPID. Performed By: #### L 506.1000, L100.0100, L501.9985, L500.4050 #### [facility] [address] [place], [address] Urea nitrogen [Mass/Vol] 15 mg/dL Normal 7-18 [facility] Comment on above: Order Comment: FASTI NG. COMING BACK ANOTHER DAY FOR THE LIPID. Performed By: #### L 506.1000, L100.0100, L501.9985, L500.4050 #### [facility] [address] [place], [address] Hemoglobin A1con 03-15-2024 HbA1c (Bld) [Mass fraction] 5.4 % Normal 3.8-5.6 [facility] Comment on above: Result Comment: Norm al < 5.7 % Prediabetic 5.7 - 6.4 % Diabetic >or= 6.5 % Please note range changes. Performed By: #### L 506.1000, L100.0100, L501.9985, L500.4050 #### [facility] [address] [place], [address] Urgent Care Visit Reporton 1 05-16-2023 Urgent Care Visit Report [facility] [address] , [address] [place], [place] [address] OFFICE VISIT Date of Service: 03/15/24 MR#: [id number] Acct: [id number] Name: KADIE MAK Rep #: [id number] : 1980 Provider: SMITA Carr Age/Sex: 44/F Location: [facility] Status: Signed Intake Vital Signs 01/24/24 14:38 03/14/24 15:33 Height 5 ft 4 in 5 ft 4 in Weight: 218 lb BMI 37.4 BP 118/80 Blood Pressure Location Lt brachial Position Sitting Respiration 18 Pulse 77 Temp 98.1 F Temp Source Oral Pulse Oximetry (%) 99 Oxygen Delivery Method room air Intake Visit Reasons: PRE EMP PHYSICAL Chief Complaint: left wrist injury Allergies duloxetine (From Cymbalta) Allergy (Verified 01/24/24 14:38) Rash sulfamethoxazole (From Bactrim) Adverse Reaction (Mild, Verified 01/24/24 14:38) Headache and elevated BP trimethoprim (From Bactrim) Adverse Reaction (Mild, Verified 01/24/24 14:38) Headache and elevated BP PFSH Medical History (Updated 01/24/24 @ 15:10 by Austin ORDOÑEZ, PA) Left wrist sprain Chest pain Acid reflux Dysgraphia Fatigue Bronchitis Headache Gastroenteritis Right foot strain Left ovarian cyst Chronic pelvic pain in female Hypertension History of migraine headaches Surgical History History of left oophorectomy H/O sinus surgery History of tonsillectomy delivery delivered H/O: hysterectomy Family History Mother Cancer cervical Breast cancer Father Cancer Throat Diabetes Hypertension Grandmother Breast cancer Cancer Stomach Grandfather Cancer Prostate Grandmother Cancer brain Hypertension Grandfather Cancer lung Aunt Diabetes Social History household members: children housing: house current occupational status: employed current occupation: [employer] sexually active: No Smoking Status: Former smoker quit date: 03/29/06 pack-years: 14 Electronic Cigarette Use: not used alcohol intake: current alcohol intake frequency: holidays/special occasions only substance use type: former substance user Date of last use: 2014 and opiates caffeine: Yes what type of physical activity do you participate in: walking frequency: 5-6 times per week seatbelt use: always do you feel safe at home: Yes additional social history: 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[employer] Chief Complaint: left wrist injury Details: KADIE MAK is a 44 F who presents to the office today for Office Procedures Physical Exam Coding PE Coding Pre-employment PE: Yes Coding Level of Care Code No Charge Diagnoses Encounter for pre-employment health screening examination Z02.1 Assessment and Plan Assessment and Plan (1) Encounter for pre-employment health screening examination: Status: Resolved Orders: Orders Quantiferon TB-Gold+ Today Z02.1 - Encounter for pre-employment examination 03/15/24 0620 Date Austin ORDOÑEZ Cosigner Signature: Date (if applicable) CC: Normal [facility] Urgent Care Visit Reporton 1 Urgent Care Visit Report [facility] [address], [address] [place] [address] OFFICE VISIT Date of Service: 01/24/24 MR#: [id number] Acct: [id number] Name: KADIE MAK Rep #: [id number] : 1980 Provider: SMITA Carr Age/Sex: 44/F Location: [facility] Status: Signed Intake Vital Signs 05/03/23 14:28 01/24/24 14:38 Height 5 ft 4 in 5 ft 4 in Weight: 228 lb 4 oz 218 lb BMI 39.2 37.4 BP 122/84 H 118/80 Blood Pressure Location Lt brachial Lt brachial Position Sitting Sitting Respiration 16 18 Pulse 74 77 Pulse Source Monitor Temp 97.6 F L 98.1 F Temp Source Temporal Oral Pulse Oximetry (%) 98 99 Oxygen Delivery Method room air room air Intake Visit Reasons: L WRIST INJURY/UNK INJURY Chief Complaint: left wrist injury 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 Is patient in pain?: Yes (left wrist) Pain scale (1-10): 6 Allergies duloxetine (From Cymbalta) Allergy (Verified 01/24/24 14:38) Rash sulfamethoxazole (From Bactrim) Adverse Reaction (Mild, Verified 01/24/24 14:38) Headache and elevated BP trimethoprim (From Bactrim) Adverse Reaction (Mild, Verified 01/24/24 14:38) Headache and elevated BP Medications ???Medication ???Instructions ???Recorded ???Confirmed ???Type buprenorphine 2 mg-naloxone 0.5 mg 1 tab sublingual TID 09/14/19 01/24/24 History sublingual tablet multivitamin 1 ea PO DAILY 10/02/19 01/24/24 History elderberry fruit 350 mg capsule mg PO 02/26/22 01/24/24 History escitalopram oxalate 10 mg tablet 10 mg PO DAILY #90 tabs 05/03/23 01/24/24 Rx (Lexapro) hydrochlorothiazide 25 mg tablet 25 mg PO DAILY #90 tabs 05/03/23 01/24/24 Rx sumatriptan succinate 6 mg/0.5 mL 6 mg (0.5 mL) subcut PRN PRN 09/29/23 01/24/24 Rx subcutaneous pen injector Migraine Symptoms #1 mL Have you fallen in the past year?: No PFSH Medical History (Updated 01/24/24 @ 15:10 by Autsin ORDOÑEZ, PA) Left wrist sprain Chest pain Acid reflux Dysgraphia Fatigue Bronchitis Headache Gastroenteritis Right foot strain Left ovarian cyst Chronic pelvic pain in female Hypertension History of migraine headaches Surgical History History of left oophorectomy H/O sinus surgery History of tonsillectomy delivery delivered H/O: hysterectomy Family History Mother Cancer cervical Breast cancer Father Cancer Throat Diabetes Hypertension Grandmother Breast cancer Cancer Stomach Grandfather Cancer Prostate Grandmother Cancer brain Hypertension Grandfather Cancer lung Aunt Diabetes Social History household members: children housing: house current occupational status: employed current occupation: [employer] sexually active: No Smoking Status: Former smoker quit date: 03/29/06 pack-years: 14 Electronic Cigarette Use: not used alcohol intake: current alcohol intake frequency: holidays/special occasions only substance use type: former substance user Date of last use: 2013 and opiates caffeine: Yes what type of physical activity do you participate in: walking frequency: 5-6 times per week seatbelt use: always do you feel safe at home: Yes additional social history: 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 No history of trauma to the same and no history of fall. PMH NC. Ckapl-rhrf-hodgctek. Pain is aggravated to touch and with range of motion at the wrist, alleviated minimally with rest. No left elbow complaints. No lizf-klf-vlcdimn products taken to assist. No other associated symptoms and no other alleviating/aggravat ing factors. ROS Const Constitutional: No other (As above) Exam Const General: cooperative, healthy appearing and no acute distress Orientation: alert and awake Resp Effort Inspection: normal respiratory effort and able to speak in complete sentences Cardio Rate: regular rate Pulses: radial pulses present Skin General: no rashes or lesions noted Neuro General: patient alert, patient awake and patient oriented x3 Cognition: normal cognition Speech: speech normal Extrem General: normal to inspection, full ROM, capillary refill normal and normal exam except as noted (Tender to palpation left ulnar wrist and distal third ulnar forearm) Other: LUE: Unguarded FAROM left shoulder/elbow/digit s x 5. Negative TFCC with ulnar deviation, negative Osman, negative Phale (more content not included)... Normal [facility] Absolute lymphocyte countOrd ered By: Dr. Patton on 04-23-2022 Lymphocytes Auto (Unsp spec) [#/Vol] 1.85 10*3/uL 0.83-4.51 [facility] Basophil percentageOrdered B y: Dr. Patton on 04-23-2022 Basophils/100 WBC (Bld) 0.4 % 0-1 [facility] Eosinophils/100 WBC (Bld) 4.3 % 0-5 [facility] Neutrophils (Bld) [#/Vol] 3.0 10*3/uL 2.0-7.7 [facility] Neutrophils/100 WBC (Bld) 53.4 % 47-70 [facility] WBC (Bld) [#/Vol] 5.5 10*3/uL 4.4-11.0 [facility] Blood erythrocytes count (nu mber/volume)Ordered By: Dr. Patton on 04-23-2022 RBC (Bld) [#/Vol] 4.80 10*6/uL 4.2-5.4 [facility] Blood hemoglobin measurement (mass/volume)Ordered By: Dr. Patton on 04-23-2022 Hemoglobin (Bld) [Mass/Vol] 13.9 g/dL 12.0-15.0 [facility] Blood lymphocytes/100 leukoc ytesOrdered By: Dr. Patton on 04-23-2022 Lymphocytes/100 WBC (Bld) 33.4 % 19-41 [facility] Blood monocytes/100 leukocyt esOrdered By: Dr. Patton on 04-23-2022 Monocytes/100 WBC (Bld) 8.1 % 0-10 [facility] Blood platelet mean volumeOr dered By: Dr. Patton on 04-23-2022 Platelet mean volume (Bld) [Entitic vol] 12.1 fL 6.2-12.0 [facility] Determination of erythrocyte mean corpuscular volume (MCV)Ordered By: Dr. Patton on 04-23-2022 MCV (RBC) [Entitic vol] 83.5 fL 81-99 [facility] Hematocrit Auto (Bld) [Volum e fraction]Ordered By: Dr. Patton on 04-23-2022 Hematocrit (Bld) [Volume fraction] 40.1 % 37-47 [facility] - Hematology and Cell countsOrdered By: Dr. Patton on 04-23-2022 Erythrocyte distribution width (RBC) [Entitic vol] 36.2 fL 35.1-43.9 [facility] Erythrocyte distribution width (RBC) [Ratio] 12.0 % 11.6-14.6 [facility] Immature granulocytes/100 WBC (Bld) 0.400 % 0.0-0.9 [facility] Comment on above: IG% - Immature Granu locytes (promyelocytes, myelocytes and metamyelocytes) > 1% indicates that a LEFT SHIFT is Present. MCH (RBC) [Entitic mass] 29.0 pg 27.0-32.0 [facility] Nucleated RBC/100 WBC (Bld) [Ratio] 0 % 0-5 [facility] MCHC Auto (RBC) [Mass/Vol]Or dered By: Dr. Patton on 04-23-2022 MCHC (RBC) [Mass/Vol] 34.7 g/dL 32-36 [facility] Platelets bldOrdered By: Dr. Patton on 04-23-2022 Platelets (Bld) [#/Vol] 176 10*3/uL 150-450 [facility] Whole blood hemoglobin A1c/t otal hemoglobin ratio (mass fraction)Ordered By: Dr. Patton on 04-23-2022 HbA1c (Bld) [Mass fraction] 5.7 % 3.8-5.6 [facility] Comment on above: Normal < 5.7 % Predi abetic 5.7 - 6.4 % Diabetic >or= 6.5 % Please note range changes. Absolute lymphocyte counton 04-07-2021 Lymphocytes Auto (Unsp spec) [#/Vol] 1.58 10*3/uL 0.83-4.51 [facility] Work Phone: Basophil percentageon 2021 Basophil percentage 0 SEEN /hpf [facility] Work Phone: Basophils/100 WBC (Bld) 0.4 % 0-1 [facility] Work Phone: Bilirubin [Mass/Vol] 0.50 mg/dL 0.20-1.00 [facility] Work Phone: Comment on above: For patients on eltr ombopag therapy, use of Dimension [place] TBIL is not recommended. Chloride [Moles/Vol] 107 mmol/L 98-107 [facility] Work Phone: Cholesterol [Mass/Vol] 164 mg/dL <200 [facility] Work Phone: Comment on above: <200 mg/dL Desirable 200-240 mg/dL Borderline >240 mg/dL High Risk Eosinophils/100 WBC (Bld) 4.1 % 0-5 [facility] Work Phone: Glucose [Mass/Vol] 103 mg/dL 74-106 [facility] Work Phone: Comment on above: Fasting Glucose resu lt from 100 to 125 mg/dL suggests IMPAIRED HOMEOSTASIS per A.D.A. criteria.Please note revised GLUCOSE reference range effective 2017. Neutrophils (Bld) [#/Vol] 2.6 10*3/uL 2.0-7.7 [facility] Work Phone: Neutrophils/100 WBC (Bld) 53.4 % 47-70 [facility] Work Phone: [phone] Potassium [Moles/Vol] 4.6 mmol/L 3.5-5.1 [facility] Work Phone: [phone] Protein [Mass/Vol] 7.7 g/dL 6.4-8.2 [facility] Work Phone: Sodium [Moles/Vol] 139 mmol/L 136-145 [facility] Work Phone: Triglyceride [Mass/Vol] 86 mg/dL [facility] Work Phone: Comment on above: The drugs N-Acetylcy steine and Metamizole may falsely depress this assay.Serum Triglycerides Reference Interval Normal <150 mg/dL Borderline high 150 - 199 mg/dL High 200 - 499 mg/dL Very High > or = 500 mg/dL WBC (Bld) [#/Vol] 4.8 10*3/uL 4.4-11.0 [facility] Work Phone: Bilirubin Test strip Ql (U)o n 04-07-2021 Bilirubin Ql (U) Negative Negative [facility] Work Phone: Blood erythrocytes count (nu mber/volume)on 04-07-2021 RBC (Bld) [#/Vol] 4.71 10*6/uL 4.2-5.4 [facility] Work Phone: Blood hemoglobin measurement (mass/volume)on 04-07-2021 Hemoglobin (Bld) [Mass/Vol] 13.3 g/dL 12.0-15.0 [facility] Work Phone: Blood lymphocytes/100 leukoc yteson 04-07-2021 Lymphocytes/100 WBC (Bld) 32.6 % 19-41 [facility] Work Phone: Blood monocytes/100 leukocyt eson 04-07-2021 Monocytes/100 WBC (Bld) 9.1 % 0-10 [facility] Work Phone: Blood platelet mean volumeon 04-07-2021 Platelet mean volume (Bld) [Entitic vol] 12.5 fL 6.2-12.0 [facility] Work Phone: Determination of erythrocyte mean corpuscular volume (MCV)on 04-07-2021 MCV (RBC) [Entitic vol] 85.6 fL 81-99 [facility] Work Phone: Hematocrit Auto (Bld) [Volum e fraction]on 04-07-2021 Hematocrit (Bld) [Volume fraction] 40.3 % 37-47 [facility] Work Phone: Ketones Test strip Ql (U)on 04-07-2021 Ketones Ql (U) Negative Negative [facility] Work Phone: Laboratory - Chemistry and C hemistry - challengeon 04-07-2021 ALP [Catalytic activity/Vol] 72 U/L 45-117 [facility] Work Phone: ALT [Catalytic activity/Vol] 60 U/L 13-56 [facility] Work Phone: CO2 [Moles/Vol] 26.0 mmol/L 21.0-32.0 [facility] Work Phone: Cobalamin (Vitamin B12) [Mass/Vol] 374 pg/mL 211-911 [facility] Work Phone: [phone] Globulin (S) [Mass/Vol] 3.9 g/dL 2.2-4.2 [facility] Work Phone: [phone] Urea nitrogen/Creatinine [Mass ratio] 23.9 mg/mg 10-20 [facility] Work Phone: [phone] Laboratory - Hematology and Cell countson 04-07-2021 Erythrocyte distribution width (RBC) [Entitic vol] 38.5 fL 35.1-43.9 [facility] Work Phone: [phone] Erythrocyte distribution width (RBC) [Ratio] 12.4 % 11.6-14.6 [facility] Work Phone: [phone] Immature granulocytes/100 WBC (Bld) 0.400 % 0.0-0.9 [facility] Work Phone: [phone] Comment on above: IG% - Immature Granu locytes (promyelocytes, myelocytes and metamyelocytes) > 1% indicates that a LEFT SHIFT is Present. MCH (RBC) [Entitic mass] 28.2 pg 27.0-32.0 [facility] Work Phone: [phone] Nucleated RBC/100 WBC (Bld) [Ratio] 0 % 0-5 [facility] Work Phone: [phone] MCHC Auto (RBC) [Mass/Vol]on 04-07-2021 MCHC (RBC) [Mass/Vol] 33.0 g/dL 32-36 [facility] Work Phone: Mucus LM Ql (Urine sed)on Mucus Ql (Urine sed) 0 SEEN /hpf [facility] Work Phone: [phone] Nitrite Test strip Ql (U)on 04-07-2021 Nitrite Ql (U) Negative Negative [facility] Work Phone: [phone] No Panel Informationon 04-07 Estimated GFR (MDRD) Amer 117 mL/min >60 [facility] Work Phone: [phone] Comment on above: GFR Calc Estimated GFR (MDRD) Non-Af Amer 96 mL/min >60 [facility] Work Phone: Comment on above: Non- GFR Calc Thyroid Stimulating Hormone (TSH) 1.34 uIU/mL 0.358-3.74 [facility] Work Phone: Vitamin D 25-Hydroxy 33.6 ng/mL [facility] Work Phone: Comment on above: Vitamin D 25(OH) Sta tus Range Deficiency <20 ng/mL (50nmol/L) Insufficiency 20 - 30 ng/mL (50 - 75 nmol/L) Sufficiency 30 - 100 ng/mL (75 - 250 nmol/L) Toxicity >100 ng/mL (>250 nmol/L) Platelets bldon 04-07-2021 Platelets (Bld) [#/Vol] 107 10*3/uL 150-450 [facility] Work Phone: Protein Test strip Ql (U)on 04-07-2021 Protein Ql (U) Negative Negative [facility] Work Phone: Serum or plasma albumin shivani urement (mass/volume)on 04-07-2021 Albumin [Mass/Vol] 3.8 g/dL 3.2-5.0 [facility] Work Phone: Serum or plasma albumin/glob ulin mass ratioon 04-07-2021 Albumin/Globulin [Mass ratio] 1.0 {ratio} 0.9-2.4 [facility] Work Phone: [phone] Serum or plasma calcium shivani urement (mass/volume)on 04-07-2021 Calcium [Mass/Vol] 9.1 mg/dL 8.5-10.1 [facility] Work Phone: [phone] Serum or plasma cholesterol in HDL measurement (mass/volume)on 04-07-2021 Cholesterol in HDL [Mass/Vol] 58 mg/dL [facility] Work Phone: Comment on above: The drugs N-Acetylcy steine and Metamizole may falsely depress this assay. Reference Range HDL <40 mg/dL Low HDL Cholesterol HDL >or= 60 mg/dL High HDL Cholesterol Serum or plasma cholesterol in VLDL measurement (mass/volume)on 04-07-2021 Cholesterol in VLDL [Mass/Vol] 17 mg/dL 5-40 [facility] Work Phone: Serum or plasma creatinine m easurement (mass/volume)on 04-07-2021 Creatinine [Mass/Vol] 0.71 mg/dL 0.55-1.02 [facility] Work Phone: Comment on above: The validity of the calculated GFR & GFRAA in patients over 70 years has not been determined. Clinical correlation is essential. Serum or plasma low density lipoprotein (LDL) cholesterol measurement (mass/volume)on 04-07-2021 Cholesterol in LDL [Mass/Vol] 89 mg/dL 0-130 [facility] Work Phone: Serum or plasma urea nitroge n measurement (mass/volume)on 04-07-2021 Urea nitrogen [Mass/Vol] 17 mg/dL 7-18 [facility] Work Phone: Squamous epithelial cells de tection in urine sediment by light microscopyon 04-07-2021 Epithelial cells.squamous LM Ql (Urine sed) 0 SEEN /hpf [facility] Work Phone: Thin prep Papanicolaou smear with manual screeningon 04-07-2021 Thin prep Papanicolaou smear with manual screening 28 U/L 15-37 [facility] Work Phone: Thin prep Papanicolaou smear with manual screening 6 5-15 [facility] Work Phone: Urine blood detectionon 03-29 RBC Ql (U) Negative Negative [facility] Work Phone: RBC Ql (U) 0 SEEN /hpf [facility] Work Phone: [phone] Urine clarityon 04-07-2021 Clarity (U) Clear Clear [facility] Work Phone: [phone] Urine color determinationon 04-07-2021 Color (U) Yellow Yellow [facility] Work Phone: Urine glucose detectionon Glucose Ql (U) Normal mg/dl Normal [facility] Work Phone: Urine leukocyte esterase det ection by dipstickon 04-07-2021 Leukocyte esterase Test strip Ql (U) Negative Negative [facility] Work Phone: Urine pHon 04-07-2021 pH (U) 6.0 [pH] [facility] Work Phone: Urine sediment bacteria coun t by microscopy (number/high power field)on 04-07-2021 Bacteria LM.HPF (Urine sed) [#/Area] 0 /[HPF] None Seen [facility] Work Phone: Urine specific gravity measu rementon 04-07-2021 Specific gravity (U) [Rel density] 1.020 [facility] Work Phone: Urobilinogen Auto test strip Ql (U)on 04-07-2021 Urobilinogen Ql (U) Normal mg/dl Normal [facility] Work Phone: Office Visit: UC: Sinusitiso n 02-25-2017 Documentation of current medications (procedure) Done Invalid Interpretation Code [facility] Work Phone: Fall risk assessment No Invalid Interpretation Code [facility] Work Phone: Tobacco smoking status NHIS Never Invalid Interpretation Code [facility] Work Phone: Tobacco smoking status NHIS Tobacco smoking status CAIS Invalid Interpretation Code [facility] Work Phone: Tobacco use HS Never smoker Invalid Interpretation Code [facility] Work Phone: Office Visit: UC: Sinus pres sure/f/u to strepon 02-21-2017 Documentation of current medications (procedure) Done Invalid Interpretation Code [facility] Work Phone: Fall risk assessment No Invalid Interpretation Code [facility] Work Phone: Tobacco smoking status NHIS Never Invalid Interpretation Code [facility] Work Phone: Tobacco use HS Never smoker Invalid Interpretation Code [facility] Work Phone: Microbiology: Culture, R/O S treanthony Ware 02-15-2017 [facility] . Invalid Interpretation Code [facility] Work Phone: [phone] Office Visit: sore throaton 02-13-2017 Documentation of current medications (procedure) Done Invalid Interpretation Code [facility] Work Phone: [phone] Fall risk assessment No Invalid Interpretation Code [facility] Work Phone: [phone] Tobacco smoking status NHIS Never Invalid Interpretation Code [facility] Work Phone: [phone] Tobacco use CPHS Never smoker Invalid Interpretation Code [facility] Work Phone: [phone] Lab Report: Comprehensive Ca tabolic Profilon 06-05-2016 Alanine aminotransferase (ALT) 54 U/L Invalid Interpretation Code 12-78 [facility] Work Phone: [phone] Albumin 3.7 g/dL Invalid Interpretation Code 3.4-5.0 [facility] Phone: [phone] Albumin/Globulin Ratio 0.9 {ratio} Invalid Interpretation Code 0.9-2.4 [facility] Phone: [phone] Alkaline phosphatase (ALP) 54 U/L Invalid Interpretation Code 45-117 [facility] Work Phone: [phone] Anion gap 9 mmol/L Invalid Interpretation Code 5-15 [facility] Phone: [phone] Aspartate aminotransferase (AST) 25 U/L Invalid Interpretation Code 15-37 [facility] Phone: [phone] Bilirubin (total) 0.60 mg/dL Invalid Interpretation Code 0.20-1.00 [facility] Phone: [phone] BUN/Creatinine Ratio 17.1 RATIO Invalid Interpretation Code 10-20 [facility] Work Phone: [phone] Calcium 9.1 mg/dL Invalid Interpretation Code 8.5-10.1 [facility] Work Phone: [phone] Chloride 100 mmol/L Invalid Interpretation Code 98-107 [facility] Work Phone: [phone] CO2 30.0 mmol/L Invalid Interpretation Code 21.0-32.0 [facility] Work Phone: [phone] Creatinine 0.76 mg/dL Invalid Interpretation Code 0.55-1.02 [facility] Work Phone: [phone] eGFR (non-black) 91 mL/min/{1.73_m2} Invalid Interpretation Code >60 [facility] Work Phone: [phone] eGFR (non-black) 110 mL/min/{1.73_m2} Invalid Interpretation Code >60 [facility] Work Phone: [phone] Globulin 4.0 g/dL High 2.3-3.5 [facility] Work Phone: [phone] Glucose mass conc 103 mg/dL Invalid Interpretation Code 70-110 [facility] Work Phone: [phone] Potassium molar conc 3.8 mmol/L Invalid Interpretation Code 3.5-5.1 [facility] Work Phone: [phone] Protein 7.7 g/dL Invalid Interpretation Code 6.4-8.2 [facility] Work Phone: [phone] Sodium 139 mmol/L Invalid Interpretation Code 136-145 [facility] Work Phone: [phone] Urea nitrogen 13 mg/dL Invalid Interpretation Code 7-18 [facility] Work Phone: [phone] Lab Report: Thyroid Stim Hor elmer (TSH)on 06-05-2016 Thyroid stimulating hormone (TSH) 1.01 u[iU]/mL Invalid Interpretation Code 0.358-3.74 [facility] Work Phone: [phone] Replaced Document: (P) CBC W /Diff, Automatedon 06-05-2016 Absolute Neut 2.6 X10 3/UL Invalid Interpretation Code 2.0-7.7 [facility] Phone: [phone] Basophils/100 WBC Auto (Bld) 0.6 % Invalid Interpretation Code 0-1 [facility] Work Phone: [phone] Eosinophils/100 leukocytes 2.1 % Invalid Interpretation Code 0-5 [facility] Phone: [phone] Erythrocyte distribution width Auto Ratio (RBC) 12.4 % Invalid Interpretation Code 11.6-14.6 [facility] Work Phone: [phone] Erythrocytes (RBC) 5.12 10*6/uL Invalid Interpretation Code 4.2-5.4 [facility] Work Phone: [phone] Hematocrit (HCT) 42.3 % Invalid Interpretation Code 37-47 [facility] Work Phone: [phone] Hemoglobin mass conc (Bld) 14.6 g/dL Invalid Interpretation Code 12.0-15.0 [facility] Work Phone: [phone] Immature granulocytes/100 WBC (Bld) 0.400 % Invalid Interpretation Code 0.0-0.9 [facility] Work Phone: [phone] Lymphocytes 1.95 X10 3/UL Invalid Interpretation Code 0.83-4.51 [facility] Work Phone: [phone] Lymphocytes/100 leukocytes 36.8 % Invalid Interpretation Code 19-41 [facility] Phone: [phone] MCH 28.5 pg Invalid Interpretation Code 27.0-32.0 [facility] Phone: [phone] MCHC mass conc (RBC) 34.5 G/GL Invalid Interpretation Code 32-36 [facility] Phone: [phone] MCV 82.6 fL Invalid Interpretation Code 81-99 [facility] Phone: [phone] Monocytes/100 leukocytes 10.4 % High 0-10 [facility] Work Phone: [phone] Neutrophils/100 WBC Auto (Bld) 49.7 % Invalid Interpretation Code 47-70 [facility] Phone: [phone] Platelets 253 10*3/mm3 Invalid Interpretation Code 150-450 [facility] Phone: [phone] PMV by Autumn 10.4 fL Invalid Interpretation Code 6.2-12.0 [facility] Phone: [phone] RDW SD 37.2 fL Invalid Interpretation Code 35.1-43.9 [facility] Phone: [phone] WBC (Leukocytes) 5.3 10*3/uL Invalid Interpretation Code 4.4-11.0 [facility] Phone: [phone] Microbiology: Culture, R/O S trep Aon 05-29-2016 C[facility] . Invalid Interpretation Code [facility] Phone: Office Visit: UC: Possible S trep Throaton 05-26-2016 Rapid strep test Negative Invalid Interpretation Code [facility] Work Phone: [phone] Vital Signs Date Time Vital Sign Value Performing Clinician Willis roberts 11-17-2024 07:36-0400 Body height 162.[address] Natalia Patton MD Work Phone: [facility] 11-17-2024 07:36-0400 Body mass index (BMI) [Ratio] 37.8 kg/m2 Dr. Natalia Patton MD Work Phone: [facility] 11-17-2024 07:36-0400 Body temperature 96.7 [degF] Dr. Natalia Patton MD Work Phone: [facility] 11-17-2024 07:36-0400 Body weight 99.[address] Natalia Patton MD Work Phone: [facility] 11-17-2024 07:36-0400 Diastolic blood pressure 70 mm[Hg] Dr. Natalia Patton MD Work Phone: [facility] 11-17-2024 07:36-0400 Heart rate 69 /min Dr. Natalia Patton MD Work Phone: [facility] 11-17-2024 07:36-0400 Respiratory rate 16 /min Dr. Natalia Patton MD Work Phone: [facility] 11-17-2024 07:36-0400 SaO2% (BldA) [Mass fraction] 97 % Dr. Natalia Patton MD Work Phone: [facility] 11-17-2024 07:36-0400 Systolic blood pressure 112 mm[Hg] Dr. Natalia Patton MD Work Phone: [facility] 09-26-2024 12:09-0400 Body temperature 98.4 [degF] Dr. Natalia Patton MD Work Phone: [facility] 09-26-2024 12:09-0400 Diastolic blood pressure 70 mm[Hg] Dr. Natalia Patton MD Work Phone: [facility] 09-26-2024 12:09-0400 Heart rate 72 /min Dr. Natalia Patton MD Work Phone: [facility] 09-26-2024 12:09-0400 Respiratory rate 16 /min Dr. Natalia Patton MD Work Phone: [facility] 09-26-2024 12:09-0400 SaO2% (BldA) [Mass fraction] 98 % Dr. Natalia Patton MD Work Phone: [facility] 09-26-2024 12:09-0400 Systolic blood pressure 110 mm[Hg] Dr. Natalia Patton MD Work Phone: [facility] 09-03-2024 08:54-0400 Body height 162.[address] Natalia Patton MD Work Phone: [facility] 09-03-2024 08:54-0400 Body mass index (BMI) [Ratio] 38 kg/m2 Dr. Natalia Patton MD Work Phone: [facility] 09-03-2024 08:54-0400 Body temperature 98.4 [degF] Dr. Natalia Patton MD Work Phone: [facility] 09-03-2024 08:54-0400 Body weight 100.[address] Natalia Patton MD Work Phone: [facility] 09-03-2024 08:54-0400 Diastolic blood pressure 84 mm[Hg] Dr. Natalia Patton MD Work Phone: [facility] 09-03-2024 08:54-0400 Heart rate 67 /min Dr. Natalia Patton MD Work Phone: [facility] 09-03-2024 08:54-0400 Respiratory rate 16 /min Dr. Natalia Patton MD Work Phone: [facility] 09-03-2024 08:54-0400 SaO2% (BldA) [Mass fraction] 98 % Dr. Natalia Patton MD Work Phone: [facility] 09-03-2024 08:54-0400 Systolic blood pressure 133 mm[Hg] Dr. Natalia Patton MD Work Phone: [facility] 06-20-2024 12:17-0400 Body temperature 98.6 [degF] Dr. Natalia Patton MD Work Phone: [facility] 06-20-2024 12:17-0400 Diastolic blood pressure 58 mm[Hg] Dr. Natalia Patton MD Work Phone: [facility] 06-20-2024 12:17-0400 Heart rate 72 /min Dr. Natalia Patton MD Work Phone: [facility] 06-20-2024 12:17-0400 Respiratory rate 16 /min Dr. Natalia Patton MD Work Phone: [facility] 06-20-2024 12:17-0400 SaO2% (BldA) [Mass fraction] 96 % Dr. Natalia Patton MD Work Phone: [facility] 06-20-2024 12:17-0400 Systolic blood pressure 108 mm[Hg] Dr. Natalia Patton MD Work Phone: [facility] 05-29-2024 10:47-0500 Body temperature 98.4 [degF] Dr. Natalia Patton MD Work Phone: [facility] 05-29-2024 10:47-0500 Diastolic blood pressure 78 mm[Hg] Dr. Natalia Patton MD Work Phone: [facility] 05-29-2024 10:47-0500 Heart rate 73 /min Dr. Natalia Patton MD Work Phone: [facility] 05-29-2024 10:47-0500 SaO2% (BldA) [Mass fraction] 97 % Dr. Natalia Patton MD Work Phone: [facility] 05-29-2024 10:47-0500 Systolic blood pressure 122 mm[Hg] Dr. Natalia Patton MD Work Phone: [facility] 05-25-2024 11:30-0500 Body temperature 98.7 [degF] Dr. Natalia Patton MD Work Phone: [facility] 05-25-2024 11:30-0500 Diastolic blood pressure 62 mm[Hg] Dr. Natalia Patton MD Work Phone: [facility] 05-25-2024 11:30-0500 Heart rate 90 /min Dr. Natalia Patton MD Work Phone: [facility] 05-25-2024 11:30-0500 SaO2% (BldA) [Mass fraction] 96 % Dr. Natalia Patton MD Work Phone: [facility] 05-25-2024 11:30-0500 Systolic blood pressure 120 mm[Hg] Dr. Natalia Patton MD Work Phone: [facility] 05-17-2024 11:41-0500 Body mass index (BMI) [Ratio] 38.3 kg/m2 Dr. Natalia Patton MD Work Phone: [facility] 05-17-2024 11:41-0500 Body temperature 96 [degF] Dr. Natalia Patton MD Work Phone: [facility] 05-17-2024 11:41-0500 Body weight 101.[address] Natalia Patton MD Work Phone: [facility] 05-17-2024 11:41-0500 Diastolic blood pressure 76 mm[Hg] Dr. Natalia Patton MD Work Phone: [facility] 05-17-2024 11:41-0500 Heart rate 67 /min Dr. Natalia Patton MD Work Phone: [facility] 05-17-2024 11:41-0500 Respiratory rate 16 /min Dr. Natalia Patton MD Work Phone: [facility] 05-17-2024 11:41-0500 SaO2% (BldA) [Mass fraction] 98 % Dr. Natalia Patton MD Work Phone: [facility] 05-17-2024 11:41-0500 Systolic blood pressure 128 mm[Hg] Dr. Natalia Patton MD Work Phone: [facility] 04-23-2022 14:33-0500 Body height 162.[address] Kevin Ashford Work Phone: [facility] 04-23-2022 14:33-0500 Body mass index (BMI) [Ratio] 39.4 kg/m2 Dr. Kevin Ashford Work Phone: [facility] 04-23-2022 14:33-0500 Body temperature 97 [degF] Dr. Kevin Ashford Work Phone: [facility] 04-23-2022 14:33-0500 Body weight 104.[address] Kevin Ashford Work Phone: [facility] 04-23-2022 14:33-0500 Diastolic blood pressure 86 mm[Hg] Dr. Kevin Ashford Work Phone: [facility] 04-23-2022 14:33-0500 Heart rate 95 /min Dr. Kevin Ashford Work Phone: [facility] 04-23-2022 14:33-0500 Respiratory rate 16 /min Dr. Kevin Ashford Work Phone: [facility] 04-23-2022 14:33-0500 SaO2% (BldA) [Mass fraction] 98 % Dr. Kevin Ashford Work Phone: [facility] 04-23-2022 14:33-0500 Systolic blood pressure 120 mm[Hg] Dr. Kevin Ashford Work Phone: [facility] 02-26-2022 14:39-0500 Body height 162.[address] Kevin Ashford Work Phone: [facility] Work Phone: 02-26-2022 14:39-0500 Body mass index (BMI) [Ratio] 38.6 kg/m2 Dr. Kevin Ashford Work Phone: [facility] 02-26-2022 14:39-0500 Body temperature 98.1 [degF] Dr. Kevin Ashford Work Phone: [facility] 02-26-2022 14:39-0500 Body weight 102.[address] Kevin Ashford Work Phone: [facility] 02-26-2022 14:39-0500 Diastolic blood pressure 90 mm[Hg] Dr. Kevin Ashford Work Phone: [facility] 02-26-2022 14:39-0500 Heart rate 67 /min Dr. Kevin Ashford Work Phone: [facility] 02-26-2022 14:39-0500 Respiratory rate 14 /min Dr. Kevin Ashford Work Phone: [facility] 02-26-2022 14:39-0500 SaO2% (BldA) [Mass fraction] 97 % Dr. Kevin Ashford Work Phone: [facility] 02-26-2022 14:39-0500 Systolic blood pressure 144 mm[Hg] Dr. Kevin Ashford Work Phone: [facility] 02-25-2017 09:10-0500 BMI (Body Mass Index) 32.95 kg/m2 Austin ORDOÑEZ [facility] Work Phone: 02-25-2017 09:10-0500 Body Temperature 97.8 [degF] Austin Wyles PA [facility] Work Phone: 02-25-2017 09:10-0500 BP Diastolic 84 mm[Hg] Austin Back PA [facility] Work Phone: 02-25-2017 09:10-0500 BP Systolic 126 mm[Hg] Austin Back PA [facility] Work Phone: 02-25-2017 09:10-0500 Height 165.1 cm Austin Back PA [facility] Work Phone: 02-25-2017 09:10-0500 Pulse (Heart Rate) 90 /min Austin Back PA [facility] Work Phone: 02-25-2017 09:10-0500 Respiratory Rate 12 /min Austin Back PA [facility] Work Phone: 02-25-2017 09:10-0500 Weight 89.81 kg Austin Back PA [facility] Work Phone: 02-21-2017 09:07-0500 BMI (Body Mass Index) 33.54 kg/m2 Leland Madden PA-C [facility] Work Phone: 02-21-2017 09:07-0500 Body Temperature 98.3 [degF] Leland Madden PA-C [facility] Work Phone: 02-21-2017 09:07-0500 BP Diastolic 76 mm[Hg] Leland Madden PA-C [facility] Work Phone: 02-21-2017 09:07-0500 BP Systolic 112 mm[Hg] Leland Madden PA-C [facility] Work Phone: 02-21-2017 09:07-0500 Height 165.1 cm Leland Madden PA-C [facility] Work Phone: 02-21-2017 09:07-0500 Pulse (Heart Rate) 76 /min Leland Madden PA-C [facility] Work Phone: 02-21-2017 09:07-0500 Respiratory Rate 12 /min Leland Madden PA-C [facility] Work Phone: 02-21-2017 09:07-0500 Weight 91.45 kg Leland Madden PA-C [facility] Work Phone: 02-13-2017 10:31-0500 BMI (Body Mass Index) 32.61 kg/m2 Fifi Caicedo PA-C [facility] Work Phone: 02-13-2017 10:31-0500 Body Temperature 98 [degF] Fifi Caicedo PA-C [facility] Work Phone: 02-13-2017 10:31-0500 BP Diastolic 84 mm[Hg] JOSÉ MANEUL [facility] Work Phone: 02-13-2017 10:31-0500 BP Systolic 122 mm[Hg] Fifi Caicedo PA-C [facility] Work Phone: 02-13-2017 10:31-0500 Height 165.1 cm Fifi Caicedo PA-C [facility] Work Phone: 02-13-2017 10:31-0500 Pulse (Heart Rate) 84 /min Fifi Caicedo PA-C [facility] Work Phone: 02-13-2017 10:31-0500 Respiratory Rate 14 /min Fifi Caicedo PA-C [facility] Work Phone: 02-13-2017 10:31-0500 Weight 88.91 kg Fifi Caicedo PA-C [facility] Work Phone: 06-05-2016 09:21-0500 BP Diastolic 82 mm[Hg] Fifi Caicedo PA-C [facility] Work Phone: 06-05-2016 09:21-0500 BP Systolic 136 mm[Hg] Fifi Caicedo PA-C [facility] Work Phone: 06-05-2016 09:21-0500 BSA (Body Surface Area) 1.94 m2 Fifi Caicedo PA-C [facility] Work Phone: Encounters Encounter Date Encounter Type Care Provider Facility Start: 11-30-2024 ambulatory Natalia Blandonlay Facility :[facility] Start: 11-17-2024 End: 11-17-2024 Patient encounter procedure Zoran ORDOÑEZ -[facility] Work Phone: Start: 11-17-2024 End: 11-17-[address] Natalia Patton MD Work Phone: -[facility] Start: 09-26-2024 End: 09-26-2024 Patient encounter procedure Austin Back [facility] Work Phone: Start: 09-26-2024 End: 09-26-[address] Natalia Patton MD Work Phone: [facility] Start: 09-03-2024 End: 09-03-2024 Patient encounter procedure Kevin BARRERA [facility] Work Phone: Start: 09-03-2024 End: 09-03-[address] 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 reaction to cell mediated immunity measurement of gamma interferon antigen response without active tuberculosis (Primary Dx) Start: 06-20-2024 End: 06-20-2024 Patient encounter procedure Austin Back PA [facility] Work Phone: Start: 06-20-2024 End: 06-20-2024 ambulatory Austin ORDOÑEZ Facility:[facility] Start: 05-29-2024 End: 05-29-2024 Patient encounter procedure Juan Moise [employer]-C [facility] Work Phone: Start: 05-29-2024 End: 05-29-2024 ambulatory Juan Moise Facility:[facility] Start: 05-25-2024 End: 05-25-2024 Patient encounter procedure Meek Gloria PA [facility] Work Phone: Start: 05-25-2024 End: 05-25-2024 ambulatory Natalia [place] Facility:[facility] Start: 05-17-2024 End: 05-17-[address] Natalia Patton MD -[facility] Work Phone: Start: 05-17-2024 End: 05-17-2024 ambulatory Natalia [place] Facility:[facility] Start: 04-25-2024 End: 04-25-2024 ambulatory Natalia Abdi Facility:[facility] Start: 03-15-2024 End: 03-15-2024 ambulatory Natalia Abdi Facility:[facility] Start: 03-15-2024 End: 03-15-2024 ambulatory Natalia [place] Facility:[facility] Start: 01-24-2024 End: 01-24-2024 ambulatory Natalia [place] Facility:[facility] Start: 08-04-2022 End: 08-04-2022 ambulatory SMITA [facility] Work Phone: Start: 08-04-2022 End: 08-04-2022 Patient encounter procedure SMITA [facility] Start: 04-29-2022 End: 04-29-[address] Kevin Ashford Work Phone: [facility] Start: 04-23-2022 End: 04-23-[address] Kevin Ashford Work Phone: [facility] Work Phone: Start: 04-23-2022 End: 04-23-[address] Kevin Ashford Work Phone: [facility], [facility] Start: 04-23-2022 End: 04-23-[address] Kevin Ashford Work Phone: [facility] Internal Medicine Start: 04-22-2022 Non-patient / Non-visit Dr. Ivana Ashford Work Phone: [facility] Start: 04-20-2022 End: 04-20-[address] Kevin Ashford Work Phone: [facility] Work Phone: Start: 04-20-2022 End: 04-20-[address] Kevin Ashford Work Phone: [facility]/Neurology Start: 02-26-2022 End: 02-26-[address] Kevin Ashford Work Phone: [facility] Work Phone: Start: 02-26-2022 End: 02-26-[address] Kevin Ashford Work Phone: [facility] Internal Medicine Start: 07-09-2021 End: 07-09-2021 Patient encounter procedure [facility] Breast Imaging Start: 04-07-2021 End: 04-07-2021 Patient encounter procedure [facility], [place] Family Procedures Date Procedure Procedure Detail Performing Clinician Start: 07-14-2024 Radiologic exam chest 2 views Fifi Alcocer APRN - JADEN Work Phone: Start: 02-26-2022 Plain chest X-ray Dr. Kevin Ashford Work Phone: Start: 07-09-2021 Screening mammography Start: 02-13-2017 End: 02-13-2017 Iaadiadoo streptococcus group a Fifi Caicedo PA-C Work Phone: Start: 06-05-2016 End: 06-05-2016 *CBC with Differential Meek ORDOÑEZ Work Phone: Start: 06-05-2016 End: 06-05-2016 *CMP Complete Metabolic Panel Meek ORDOÑEZ Work Phone: Start: 06-05-2016 End: 06-05-2016 Chest x-ray 1 view frontal Meek ORDOÑEZ Work Phone: Start: 06-05-2016 End: 06-05-2016 Thyrotropin [Units/volume] in Serum or Plasma Meek ORDOÑEZ Work Phone: Start: 05-26-2016 End: 05-26-2016 Iaadiadoo streptococcus group a Meek ORDOÑEZ Work Phone: Start: 05-26-2016 End: 06-05-2016 Streptococcus.beta-hemol ytic [Presence] in Throat by Organism specific culture Meek ORDOÑEZ Work Phone: H/O: hysterectomy H/O: hysterectomy History of tonsillectomy History of tonsi llectomy Plan of Treatment Date Care Activity Detail Author Start: 01-01-2055 RSV Immunization for Adults (1 - 1-dose 75+ series) RSV Immunization for Adults (1 - 1-dose 75+ series) [facility] Start: 01-01-2030 Zoster Vaccines (1 o f 2) Zoster Vaccines (1 of 2) [facility] Start: 11-27-2024 Influenza vaccination [facility] Start: 05-17-2024 Patient referral [facility] Work Phone: Start: 11-28-2023 COVID-19 Vaccine ( season) COVID-19 Vaccine ( season) [facility] Start: 2020 Screening for malign ant neoplasm of breast Mammogram [facility] Start: 02-25-2017 End: 02-25-2017 Appointment Appointment [facility] Work Phone: Start: 02-21-2017 End: 02-21-2017 Appointment Appointment [facility] Work Phone: Start: 02-13-2017 End: 02-13-2017 Streptococcus.beta-hemo lytic [Presence] in Throat by Organism specific culture [facility] Work Phone: Start: 02-13-2017 End: 02-13-2017 Appointment Appointment [facility] Work Phone: Start: 06-05-2016 End: 06-05-2016 *CBC with Differential *CBC with Differential [facility] Work Phone: Start: 06-05-2016 End: 06-05-2016 *CMP Complete Metabolic Panel *CMP Complete Metabolic Panel [facility] Work Phone: Start: 06-05-2016 End: 06-05-2016 Chest x-ray 1 view frontal X-Ray, Chest, PA [facility] Work Phone: Start: 06-05-2016 End: 06-05-2016 Thyroid stimulating hormone (TSH) *TSH [facility] Work Phone: Start: 05-26-2016 End: 06-05-2016 Streptococcus.beta-hemo lytic [Presence] in Throat by Organism specific culture *Culture, R/O Strep A Swab [facility] Work Phone: Start: 01-01-1999 DTaP/Tdap/Td Vaccine s (1 - Tdap) DTaP/Tdap/Td Vaccines (1 - Tdap) [facility] Start: 01-01-1999 Hepatitis B Vaccines (1 of 3 - 19+ 3-dose series) Hepatitis B Vaccines (1 of 3 - 19+ 3-dose series) [facility] Start: 01-01-1998 Hepatitis C screening Hepatitis C Sc reening [facility] Start: 1992 Depression Monitoring Depression Mon itoring [facility] Start: 01-01-1981 MMR Vaccines (1 of 1 - Standard series) MMR Vaccines (1 of 1 - Standard series) [facility] Start: 1980 HIV screening HIV Screening [facility] Start: 1980 Lipid panel Lipid Panel [facility] Measurement of respiratory function [facility] Work Phone: MG Breast - bilatera l Screening [facility] OUTSIDE PROCEDURE SCAN OUTSIDE P ROCEDURE SCAN Procedures Ordered: 07/14/2024 [facility] Comment on above: Ordered: 07/14/2024 Patient Education UPPER%20RESPIR ATORY%20I NFECTION, ACUTE%20BRONCHITIS [place] [facility] Work Phone: Patient referral [facility] Work Phone: [facility] Payers Date Payer Category Payer Other [facility] [employer] [facility] [id number] 2024 Unknown [id number] 2024 Self-pay [id number] 2012 Unknown [id number] 2012 Unknown [id number] Unknown [id number] Unknown [id number] Unknown [id number] Unknown [id number] Unknown [id number] Unknown [id number] Unknown [id number] Unknown [id number] Unknown [id number] [id number] Unknown [id number] Unknown [id number] [id number] Unknown [id number] Unknown [id number] [id number] Unknown [id number] [id number] Unknown [id number] Unknown [id number] Social History Date Type Detail Facility Start: 10-19-2020 End: 04-23-2022 Tobacco smoking status CAIS Unknown if ever smoked [facility] Start: 10-02-2019 Non-smoker [facility] Start: 1980 Sex Assigned At Female W [facility] Start: 05-17-2024 Tobacco smoking stat [facility] Ex-smoker [facility] End: 03-29-2006 History of tobacco use Current smoker [facility] End: 03-29-2006 History of tobacco use Cigarette Smoker [facility] Start: 2016 Alcoholic beverage intake Current non-drinker of alcohol (finding) [facility] Start: 1980 Sex assigned at Not on file [facility] Start: 10-27-2021 Sex Female (finding) [facility] Gender identity Not on file [facility] Medical Equipment Procedure Code Equipment Code Equipment Origin al Text Equipment Identifier Dates DEAN 3GRM HEMO STAT ABS FDA Start: 05-06-2017 DEAN 3GRM HEMO STAT ABS FDA Start: 05-06-2017 DEAN 3GRM HEMO STAT ABS FDA Start: 05-06-2017 DEAN 3GRM HEMO STAT ABS FDA Start: 05-06-2017 DEAN 3GRM HEMO STAT ABS FDA Start: 05-06-2017 DEAN 3GRM HEMO STAT ABS FDA Start: 05-06-2017 DEAN 3GRM HEMO STAT ABS FDA Start: 05-06-2017 DEAN 3GRM HEMO STAT ABS FDA Start: 05-06-2017 DEAN 3GRM HEMO STAT ABS FDA Start: 05-06-2017 DEAN 3GRM HEMO STAT ABS FDA Start: 05-06-2017 DEAN 3GRM HEMO STAT ABS FDA Start: 05-06-2017 DEAN 3GRM HEMO STAT ABS FDA Start: 05-06-2017 DEAN 3GRM HEMO STAT ABS FDA Start: 05-06-2017 DEAN 3GRM HEMO STAT ABS FDA Start: 05-06-2017 DEAN 3GRM HEMO STAT ABS FDA Start: 05-06-2017 DEAN 3GRM HEMO STAT ABS FDA Start: 05-06-2017 Clinical Notes 04-22-2022 to 09-03-2024 Note Date & Type Note Facility 09-03-2024 Evaluation note Diagnosis Onset Date Resolution URI (upper respiratory infection) resolved September 03, 2024 8 :48am Carpal tunnel syndrome, left acute November 17 7:29am [facility] Work Phone: 1(344) 143-798106-08-2025 [facility] [address], [address] [place] [address] OFFICE VISIT Date of Service: 09/03/24 MR#: [id number] Acct: [id number] Name: KADIE MAK Rep #: [id number] : 1980 Provider: HOLLY Panda Age/Sex: 44/F Location: [facility] Status: Signed Intake Vital Signs 05/17/24 11:41 09/03/24 08:54 Height 5 ft 4 in 5 ft 4 in Weight: 221 lb 4 oz BMI 38.0 BP 133/84 H Blood Pressure Location Lt brachial Position Sitting Respiration 16 Pulse 67 Pulse Source Monitor Temp 98.4 F Temp Source Temporal Pulse Oximetry (%) 98 Oxygen Delivery Method room air Intake Visit Reasons: SINUS COMPLAINT/ST/MALLY/BACK PAIN Chief Complaint: productive cough Is patient in pain?: Yes (back pain ) Pain scale (1-10): 6 Allergies duloxetine (From Cymbalta) Allergy (Verified 09/03/24 08:52) Rash sulfamethoxazole (From Bactrim) Adverse Reaction (Mild, Verified 09/03/24 08:52) Headache and elevated BP trimethoprim (From Bactrim) Adverse Reaction (Mild, Verified 09/03/24 08:52) Headache and elevated BP Medications ?Medication ?Instructions ?Recorded ?Confirmed ?Type buprenorphine 2 mg-naloxone 0.5 mg 1 tab sublingual TI D 09/14/19 09/03/24 History sublingual tablet multivitamin 1 ea PO DAILY 10/02/1909/03 History elderberry fruit 350 mg capsule mg PO 02/26/22 5 History sumatriptan succinate 6 mg/0.5 mL 6 mg (0.5 mL) subcut PRN PRN 05/17/24 09/03/24 Rx subcutaneous pen injector Migraine Symptoms #1 mL escitalopram oxalate 10 mg tablet 10 mg PO DAILY #90 t abs 07/18/24 09/03/24 Rx (Lexapro) hydrochlorothiazide 25 mg tablet 25 mg PO DAILY #90 ta bs 07/18/24 09/03/24 Rx doxycycline hyclate 100 mg capsule 100 mg PO BID 7 day s #14 caps 09/03/24 09/03/24 Rx prednisone 20 mg tablet 40 mg (2 x 20 mg) PO QDAY 5 days 09/03/24 09/03/24 Rx #10 tabs Patient : No PFSH Medical History Flu-like symptoms Gastroenteritis Left wrist sprain Chest pain Acid reflux Dysgraphia Fatigue Bronchitis Headache Gastroenteritis Right foot strain Left ovarian cyst Chronic pelvic pain in female Hypertension History of migraine headaches Surgical History History of left oophorectomy H/O sinus surgery History of tonsillectomy delivery delivered H/O: hysterectomy Family History Mother Cancer cervical Breast cancer Father Cancer Throat Diabetes Hypertension Grandmother Breast cancer Cancer Stomach Grandfather Cancer Prostate Grandmother Cancer brain Hypertension Grandfather Cancer lung Aunt Diabetes Son ADHD Social History household members: children housing: house current occupational status: employed current occupation: [employer] sexually active: No Smoking Status: Former smoker quit date: 03/29/06 pack-years: 14 Electronic Cigarette Use: not used alcohol intake: current alcohol intake frequency: holidays/special occasions only substance use type: former substance user Date of last use: 2013 and opiates caffeine: Yes what type of physical activity do you participate in: walking frequency: 5-6 times per week seatbelt use: always do you feel safe at home: Yes additional social history: 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 She states she originally noted chills and fever. She also notes anew cough that has become productive over the last three days. She acknowledges body aches. She works in a [employer] with many sick contacts. ROS Const Constitutional: Positive for body ache and chills; No fatigue, fever(s), headache(s), sleep problems, abnormal sleep pattern or change in appetite Eyes Eyes: No blurry vision, change in vision, double vision, irritation, discharge, vision loss, dry eyes, bulging eyes, floaters, visual disturbances, eye pain, Light sensitivity, spots in vision, tunnel vision or other ENT ENT: Positive for ear or mastoid pain (Left), nasal congestion, nasal discharge and sore throat; No ear discharge, ear pressure, tinnitus, dizziness/vertigo, nosebleed/epistaxis, nose pain, sinus pressure, sinus pain, post nasal drip, headache(s), facial pain, dental pain, difficulty swallowing,bad breath, hoarseness, lip swelling, mouth lesions, mouth pain, neck pain, tongue swelling or throat swelling Resp Respiratory: Positive for cough Cough: Yes productive, change in phlegm color and hemoptysis (plastic smell, intermittent, strikes of blood); No chest congestion, pain on inspiration, shortness of breath, pain with cough, stridor or wheezing Cardio Cardiology: No chest pain at rest, chest pain with exertion, shortness of breath, dyspnea on exertion or lightheadedness Gastro GI: No abdominal pain, change in bowel habits, constipation, diarrhea, difficulty swallowing, nausea/dyspepsia or vomiting Genitourinary-Female: No burning urination or urinary frequency Musc Musculoskeletal: Positive for back pain (upper); No joint pain or neck pain Skin Skin: No rash Neuro Neurology: No headache(s) or visual disturbances Psych Psychiatric: No abnormal sleep pattern and No change in appetite Endo Endocrine: No fatigue Aller/Imm Allergy/Immunologic: No lip swelling, throat swelling, tongue swelling or wheezing Exam Const General: cooperative, healthy appearing, comfortable and no acute distress Orientation: alert, awake and oriented x3 HENMT Head: normal to inspection and normocephalic Ears: hearing grossly normal bilaterally, external ears normal and TM's normal bilaterally Nose: external nose normal, nares normal and no nasal discharge Face and sinus: normal facial exam and sinuses nontender Mouth: oral mucosae normal, lip normal, tongue normal, oropharynx normal and moist mucous membranes Throat: posterior oropharynx normal, tonsils normal, uvula midline and no postnasal drainage Eyes General: appearance normal, both eyes and all related structures Neck Neck: normal visual inspection and no lymphadenopathy Carotids: normal carotid upstroke Lymphatic: no lymphadenopathy noted Chest Chest palpation & inspection: normal inspection of the chest Resp Effort & Inspection: normal respiratory effort, able to speak in complete sentences, symmetric chest movement, cough and no stridor Auscultation: Bilateral: Clear to Auscultation Cardio Rate: regular rate Rhythm: regular rhythm Heart Sounds: S1 normal, S2 normal and no murmurs GI Inspection: normal to inspection Auscultation: normal bowel sounds Palpation: soft Skin General: no rashes or lesions noted Neuro Speech: speech normal Extrem General: normal to inspection and capillary refill normal Coding Level of Care Code Off vis,est,level 3 Diagnoses Upper respiratory tract infection, unspecified type J06.9 URI type: unspecified URI Assessment and Plan Assessment and Plan (1) URI (upper respiratory infection): Status: Resolved Qualifiers: URI type: unspecified URI Qualified Code(s): J06.9 - Acute upper respiratory infection, unspecified Plan: We discussed Flu and COVID testing, but did not proceed based on duration and worsening symptoms. Will add antibiotic. Will send prescription for prednisone if cough worsens. Note given for work as well. Encouraged to get plenty of rest,drink lots of clear liquids, and use Tylenol or Ibuprofen (unless contraindicated) for fever and comfort. Patient also educated on other symptomatic management techniques. To be seen in 7-10 days if no improvement; sooner if worsening of symptoms.? Patient advised of potential red flags and when appropriate to report to the ED.? Patient verbalized understanding and agreement with all the above. Medications: New doxycycline hyclate 100 mg PO BID 7 days 14 caps 0RF prednisone 40 mg (2 x 20 mg) PO QDAY 5 days 10 tabs 0RF 09/03/24 0918 P HOT PIPE GAUGER-C> Date _ Kevin Drakeigngray Signature: Date (if applicable) CC: Dr. Natalia Patton MD ~ [facility]06-08-2025 Progress note Author Kevin Panda [facility] Note Date/Time September 03, 2024 9:18a m [facility] [address], [address] [place] [address] OFFICE VISIT Date of Service: 09/03/24 MR#: [id number] Acct: [id number] Name: KADIE MAK Rep #: [id number] : 1980 Provider: HOLLY Panda Age/Sex: 44/F Location: [facility] Status: Signed Intake Vital Signs 05/17/24 11:41 09/03/24 08:54 Height 5 ft 4 in 5 ft 4 in Weight: 221 lb 4 oz BMI 38.0 BP 133/84 H Blood Pressure Location Lt brachial Position Sitting Respiration 16 Pulse 67 Pulse Source Monitor Temp 98.4 F Temp Source Temporal Pulse Oximetry (%) 98 Oxygen Delivery Method room air Intake Visit Reasons: SINUS COMPLAINT/ST/MALLY/BACK PAIN Chief Complaint: productive cough Is patient in pain?: Yes (back pain ) Pain scale (1-10): 6 Allergies duloxetine (From Cymbalta) Allergy (Verified 09/03/24 08:52) Rash sulfamethoxazole (From Bactrim) Adverse Reaction (Mild, Verified 09/03/24 08:52) Headache and elevated BP trimethoprim (From Bactrim) Adverse Reaction (Mild, Verified 09/03/24 08:52) Headache and elevated BP Medications ?Medication ?Instructions ?Recorded ?Confirmed ?Type buprenorphine 2 mg-naloxone 0.5 mg 1 tab sublingual TI D 09/14/19 09/03/24 History sublingual tablet multivitamin 1 ea PO DAILY 10/02/1909/03 History elderberry fruit 350 mg capsule mg PO 02/26/22 5 History sumatriptan succinate 6 mg/0.5 mL 6 mg (0.5 mL) subcut PRN PRN 05/17/24 09/03/24 Rx subcutaneous pen injector Migraine Symptoms #1 mL escitalopram oxalate 10 mg tablet 10 mg PO DAILY #90 t abs 07/18/24 09/03/24 Rx (Lexapro) hydrochlorothiazide 25 mg tablet 25 mg PO DAILY #90 ta bs 07/18/24 09/03/24 Rx doxycycline hyclate 100 mg capsule 100 mg PO BID 7 day s #14 caps 09/03/24 09/03/24 Rx prednisone 20 mg tablet 40 mg (2 x 20 mg) PO QDAY 5 days 09/03/24 09/03/24 Rx #10 tabs Patient : No PFSH Medical History Flu-like symptoms Gastroenteritis Left wrist sprain Chest pain Acid reflux Dysgraphia Fatigue Bronchitis Headache Gastroenteritis Right foot strain Left ovarian cyst Chronic pelvic pain in female Hypertension History of migraine headaches Surgical History History of left oophorectomy H/O sinus surgery History of tonsillectomy delivery delivered H/O: hysterectomy Family History Mother Cancer cervical Breast cancer Father Cancer Throat Diabetes Hypertension Grandmother Breast cancer Cancer Stomach Grandfather Cancer Prostate Grandmother Cancer brain Hypertension Grandfather Cancer lung Aunt Diabetes Son ADHD Social History household members: children housing: house current occupational status: employed 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 She states she originally noted chills and fever. She also notes a new cough that has become productive over the last three days. She acknowledges body aches. She works in a [employer] with many sick contacts. ROS Const Constitutional: Positive for body ache and chills; No fatigue, fever(s), headache(s), sleep problems, abnormal sleep pattern or change in appetite Eyes Eyes: No blurry vision, change in vision, double vision, irritation, discharge, vision loss, dry eyes, bulging eyes, floaters, visual disturbances, eye pain, Light sensitivity, spots in vision, tunnel vision or other ENT ENT: Positive for ear or mastoid pain (Left), nasal congestion, nasal discharge and sore throat; No ear discharge, ear pressure, tinnitus, dizziness/vertigo, nosebleed/epistaxis, nose pain, sinus pressure, sinus pain, post nasal drip, headache(s), facial pain, dental pain, difficulty swallowing, bad breath, hoarseness, lip swelling, mouth lesions, mouth pain, neck pain, tongue swelling or throat swelling Resp Respiratory: Positive for cough Cough: Yes productive, change in phlegm color and hemoptysis (plastic smell, intermittent, strikes of blood); No chest congestion, pain on inspiration, shortness of breath, pain with cough, stridor or wheezing Cardio Cardiology: No chest pain at rest, chest pain with exertion, shortness of breath, dyspnea on exertion or lightheadedness Gastro GI: No abdominal pain, change in bowel habits, constipation, diarrhea, difficulty swallowing, nausea/dyspepsia or vomiting Genitourinary-Female: No burning urination or urinary frequency Musc Musculoskeletal: Positive for back pain (upper); No joint pain or neck pain Skin Skin: No rash Neuro Neurology: No headache(s) or visual disturbances Psych Psychiatric: No abnormal sleep pattern and No change in appetite Endo Endocrine: No fatigue Aller/Imm Allergy/Immunologic: No lip swelling, throat swelling, tongue swelling or wheezing Exam Const General: cooperative, healthy appearing, comfortable and no acute distress Orientation: alert, awake and oriented x3 HENMT Head: normal to inspection and normocephalic Ears: hearing grossly normal bilaterally, external ears normal and TM's normal bilaterally Nose: external nose normal, nares normal and no nasal discharge Face and sinus: normal facial exam and sinuses nontender Mouth: oral mucosae normal, lip normal, tongue normal, oropharynx normal and moist mucous membranes Throat: posterior oropharynx normal, tonsils normal, uvula midline and no postnasal drainage Eyes General: appearance normal, both eyes and all related structures Neck Neck: normal visual inspection and no lymphadenopathy Carotids: normal carotid upstroke Lymphatic: no lymphadenopathy noted Chest Chest palpation & inspection: normal inspection of the chest Resp Effort & Inspection: normal respiratory effort, able to speak in complete sentences, symmetric chest movement, cough and no stridor Auscultation: Bilateral: Clear to Auscultation Cardio Rate: regular rate Rhythm: regular rhythm Heart Sounds: S1 normal, S2 normal and no murmurs GI Inspection: normal to inspection Auscultation: normal bowel sounds Palpation: soft Skin General: no rashes or lesions noted Neuro Speech: speech normal Extrem General: normal to inspection and capillary refill normal Coding Level of Care Code Off vis,est,level 3 Diagnoses Upper respiratory tract infection, unspecified type J06.9 URI type: unspecified URI Assessment and Plan Assessment and Plan (1) URI (upper respiratory infection): Status: Resolved Qualifiers: URI type: unspecified URI Qualified Code(s): J06.9 - Acute upper respiratory infection, unspecified Plan: We discussed Flu and COVID testing, but did not proceed based on duration and worsening symptoms. Will add antibiotic. Will send prescription for prednisone if cough worsens. Note given for work as well. Encouraged to get plenty of rest,drink lots of clear liquids, and use Tylenol or Ibuprofen (unless contraindicated) for fever and comfort. Patient also educated on other symptomatic management techniques. To be seen in 7-10 days if no improvement; sooner if worsening of symptoms.? Patient advised of potential red flags and when appropriate to report to the ED.? Patient verbalized understanding and agreement with all the above. Medications: New doxycycline hyclate 100 mg PO BID 7 days 14 caps 0RF prednisone 40 mg (2 x 20 mg) PO QDAY 5 days 10 tabs 0RF 09/03/24 0918 <Electronically signed by Kevin BARRERA> Date _ Kevin ALCALAC Cosigner Signature: Date (if applicable) CC: Dr. Natalia Patton MD ~ [facility] Work Phone: 1(453) 291-648003-03-2025 Evaluation note* Diagnosis Onset Date Resolution Status Admit Date Flu-like symptoms acute May 292024 10:24am URI (upper respiratory infection) resolved September 03, 2024 8 :48am [facility] Work Phone: [phone]) 636-424602-19-2025 Evaluation note* Diagnosis Onset Date Resolution Status Admit Date Drug abuse in remission acute F ebruary 2024 11:24am Moderately severe depression acute May 17, 2024 11:24am MIGUEL (obstructive sleep apnea) chronic May 17 11:24am Mild anxiety noneactive April 11:24am Influenza vaccination declined noneactive May 17 11:24am Migraine without aura and responsive to treatment noneactive May 17, 2024 11:24am Essential hypertension noneactive Fe bru2024 11:24am Screening for breast cancer noneacti ve May 17, 2024 11:24am GERD (gastroesophageal reflux disease) noneactive May 17 11:24am Obesity (BMI 30-39.9) noneactive Feb ruary 2024 11:24am Acute sinusitis acute May 25, 2024 11:28am Flu-like symptoms acute May 292024 10:24am URI (upper respiratory infection) resolved September 03, 2024 8 :48am [facility] Work Phone: [phone] [facility] noteNo assessment information [facility] Work Phone: Evaluation note* Diagnosis Onset Date Resolution Status Dysesthesia of scalp chronic Hypertension chronic MIGUEL (obstructive sleep apnea) chronic History of COVID-19 noneacti ve SOB (shortness of breath) no neactive Wheezing noneactive Former smoker noneactive [facility] Work Phone: Evaluation note* Diagnosis Onset Date Resolution Status Dysesthesia of scalp chronic Hypertension chronic MIGUEL (obstructive sleep apnea) chronic History of COVID-19 noneacti ve SOB (shortness of breath) no neactive Wheezing noneactive Former smoker noneactive Drug abuse in remission acut e Moderately severe depression acute MIGUEL (obstructive sleep apnea) chronic Immunization declined noneac tive Screening for diabetes mellitus noneactive Mild anxiety noneactive Establishing care with new doctor, encounter for noneactive SOB (shortness of breath) no neactive Migraine without aura and responsive to treatment noneactive Nocturia noneactive Thrombocytopenia noneactive Essential hypertension nonea ctive Obesity (BMI 30-39.9) noneac [facility] Work Phone: Evaluation note* Diagnosis Onset Date Resolution Status Drug abuse in remission acut e Moderately severe depression acute MIGUEL (obstructive sleep apnea) chronic Immunization declined noneac tive Screening for diabetes mellitus noneactive Mild anxiety noneactive Establishing care with new doctor, encounter for noneactive SOB (shortness of breath) no neactive Migraine without aura and responsive to treatment noneactive Nocturia noneactive Thrombocytopenia noneactive Essential hypertension nonea ctive Obesity (BMI 30-39.9) [facility]* Diagnosis Nonspecific reaction to cell mediated immunity measurement of gamma interferon antigen response without active tuberculosis [facility] Nonspecific reaction to cell mediated immunity measurement of gamma interferon antigen response without active tuberculosis- Primary Nonspecific reaction to cell mediated immunity measurement of gamma interferon antigen response without active tuberculosis documented in this encounter [facility] Discharge instructionsAmbulatory Orders* Orthopedics Location: None Selected [facility] Work Phone: Reason for referral (narrative)No reason for referral information availableG[facility]ney [facility] Services Work Phone: Chief Complaint and Reason for Visit Chief Complaint SCREENING Chief Complaint ACUTE- BP ISSUES EORDER- CHEST XRAY- SOB, Wheezing Reason for Visit Dysesthesia of scalp Hypertension MIGUEL (obstructive sleep apnea) History of COVID-19 SOB (shortness of breath) Wheezing Former smoker Chief Complaint ACUTE- BP ISSUES EORDER- CHEST XRAY- SOB, Wheezing SOB Shortness of breath psychiatric np est care Reason for Visit Dysesthesia of scalp Hypertension MIGUEL (obstructive sleep apnea) History of COVID-19 SOB (shortness of breath) Wheezing Former smoker Drug abuse in remission Moderately severe depression MIGUEL (obstructive sleep apnea) Immunization declined Screening for diabetes mellitus Mild anxiety Establishing care with new doctor, encounter for SOB (shortness of breath) Migraine without aura and responsive to treatment Nocturia Thrombocytopenia Essential hypertension Obesity (BMI 30-39.9) Chief Complaint ACUTE- BP ISSUES EORDER- CHEST XRAY- SOB, Wheezing SOB Shortness of breath psychiatric np est care MIGUEL Reason for Visit Dysesthesia of scalp Hypertension MIGUEL (obstructive sleep apnea) History of COVID-19 SOB (shortness of breath) Wheezing Former smoker Drug abuse in remission Moderately severe depression MIGUEL (obstructive sleep apnea) Immunization declined Screening for diabetes mellitus Mild anxiety Establishing care with new doctor, encounter for SOB (shortness of breath) Migraine without aura and responsive to treatment Nocturia Thrombocytopenia Essential hypertension Obesity (BMI 30-39.9) Chief Complaint SOB Shortness of breath psychiatric np est care MIGUEL MIGUEL,BIPAP ST *DEVICE TAGGED 07/21/22 Reason for Visit Drug abuse in remiss ion Moderately severe depression MIGUEL (obstructive sleep apnea) Immunization declined Screening for diabetes mellitus Mild anxiety Establishing care with new doctor, encounter for SOB (shortness of breath) Migraine without aura and responsive to treatment Nocturia Thrombocytopenia Essential hypertension Obesity (BMI 30-39.9) Chief Complaint Admit Date MED FU May 17, 2024 11:24am ST/FEVER/BA/CHILLS May 25, 2024 11:28am FEVER, HEAD CONGESTION May 29, 2024 1 0:24am COUGH, SORE THROAT, BODY ACHES May 11:59am SINUS COMPLAINT/ST/MALLY/BACK PAIN September 032024 8:48am Reason for Visit Admit Date Drug abuse in remission May 17 11:24am Moderately severe depression May 172024 11:24am MIGUEL (obstructive sleep apnea) April 292024 11:24am Mild anxiety May 17, 2024 11:24am Influenza vaccination declined May 17, 2024 11:24am Migraine without aura and responsive to treatment May 17, 2024 11:24am Essential hypertension May 17 11:24am Screening for breast cancer April 11:24am GERD (gastroesophageal reflux disease) F ebruary 2024 11:24am Obesity (BMI 30-39.9) May 17 11:24am Acute sinusitis May 25, 2024 11:28am Flu-like symptoms May 29, 2024 10:2 4am URI (upper respiratory infection) September 032024 8:48am Chief Complaint Admit Date FEVER, HEAD CONGESTION May 29, 2024 1 0:24am COUGH, SORE THROAT, BODY ACHES May 11:59am SINUS COMPLAINT/ST/MALLY/BACK PAIN September 032024 8:48am Cough September 26, 2024 12:07 pm Reason for Visit Admit Date Flu-like symptoms May 29, 2024 10:2 4am URI (upper respiratory infection) September 032024 8:48am Chief Complaint Admit Date SINUS COMPLAINT/ST/MALLY/BACK PAIN September 032024 8:48am Cough September 26, 2024 12:07 pm left hand numb - past 2 weeks October 7:29am Reason for Visit Admit Date URI (upper respiratory infection) September 032024 8:48am Carpal tunnel syndrome, left October 7:29am Family History No Family History Records Found Relationship Condition Age at Onset Recorded Date/T katie mother Malignant neoplasm Unknown father Malignant neoplasm Unknown grandmother Malignant neoplasm of breast Unknown Malignant neoplasm Unknown grandfather Malignant neoplasm Unknown Relationship Condition Age at Onset Recorded Date/T katie mother Malignant neoplasm Unknown Malignant neoplasm of breast Unknown father Malignant neoplasm Unknown grandmother Malignant neoplasm of breast Unknown Malignant neoplasm Unknown grandfather Malignant neoplasm Unknown Relationship Condition Age at Onset Recorded Date/T katie mother Malignant neoplasm Unknown Malignant neoplasm of breast Unknown father Malignant neoplasm Unknown Diabetes mellitus Unknown Hypertension Unknown grandmother Malignant neoplasm of breast Unknown Malignant neoplasm Unknown grandfather Malignant neoplasm Unknown grandmother Malignant neoplasm Unknown aunt Diabetes mellitus Unknown Relationship Condition Age at Onset Recorded Date/T katie mother Malignant neoplasm Unknown Malignant neoplasm of breast Unknown father Malignant neoplasm Unknown Diabetes mellitus Unknown Hypertension Unknown grandmother Malignant neoplasm of breast Unknown Malignant neoplasm Unknown grandfather Malignant neoplasm Unknown grandmother Malignant neoplasm Unknown aunt Diabetes mellitus Unknown son Attention deficit hy peractivity disorder (ADHD) Unknown Advance Directives No Advanced Directives Records Found Advance Directive Response Recorded Date/ Time Advance Directives No February 3:06pm Living Will No October 19, 2020 6:44pm Power of Childcare Worker No October 19 6:44pm Advance Directive Response Recorded Date/ Time Advance Directives No February 2:06pm Living Will No October 19, 2020 5:44pm Power of Childcare Worker No October 19 5:44pm Advance Directive Response Recorded Date/ Time Advance Directives No February 4:33pm Summary Purpose Additional Source Comments Goals (unrecognized section and content) Goals may be documented in a n alternate sectionGoals may be documented in an alternate sectionGoals may be documented in an alternate sectionGoals may be documented in an alternate sectionGoals may be documented in an alternate sectionGoals may be documented in an alternate sectionGoals may be documented in an alternate sectionGoals may be documented in an alternate section Care Teams (unrecognized sec tion and content) Team Status: Active Member Role Status Dates Dr. Kevin Ashford MD Family Provider Active Dr. Natalia Patton MD Primary Care Provider Active Team Status: Inactive Member Role Status Dates Dr. Kevin Ashford MD Primary Care Provider, Referr ing Provider Active SMITA Lamas Attending Provider Active Team Status: Inactive Member Role Status Dates SMITA Lamas Primary Care Provider, Referring Provider Active Dr. Natalia Patton MD Attending Provider Active Team Status: Active Member Role Status Dates SMITA Lamas Primary Care Provid er, Referring Provider, Other Provider Active Dr. Jp Rob DO Attending Provider Active Team Status: Inactive Member Role Status Dates Dr. Kevin Ashford MD Primary Care Provider Active SMITA Lamas Attending Provider, Referring Pro vider Active Team Status: Inactive Member Role Status Dates SMITA Lamas Primary Care Provid er, Attending Provider, Referring Provider Active Team Status: Active Member Role Status Dates Dr. Natalia Patton MD Primary Care Pro vider, Attending Provider, Referring Provider Active Team Status: Active Member Role Status Dates SMITA Lamas Primary Care Provid er, Attending Provider, Referring Provider Active Team Status: Inactive Member Role Status Dates Dr. Natalia Patton MD Primary Care Pro vider, Attending Provider, Referring Provider Active Team Status: Inactive Member Role Status Dates Dr. Natalia Patton MD Primary Care Provider Active Leland Rajput NP, HOT PIPE GAUGER-C Attending Provider Active Team Status: Active Member Role Status Dates Dr. Natalia Patton MD Primary Care Provider Active Team Status: Inactive Member Role Status Dates Dr. Natalia Patton MD Primary Care Provider Active Start: May 17, 2024 End: May 17, 2024 Dr. Natalia Patton MD Attending Provider Active Start: May 17, 2024 End: May 17, 2024 Dr. Natalia Patton MD Referring Provider Active Start: May 17, 2024 End: May 17, 2024 Team Status: Inactive Member Role Status Dates Dr. Natalia Patton MD Primary Care Provider Active Start: May 25, 2024 End: May 25, 2024 Dr. Natalia Patton MD Referring Provider Active Start: May 25, 2024 End: May 25, 2024 Meek ORDOÑEZ, PA Attending Provider Active Sta rt: May 25, 2024 End: May 25, 2024 Team Status: Inactive Member Role Status Dates Dr. Natalia Patton MD Primary Care Provider Active Start: May 29, 2024 End: May 29, 2024 Dr. Natalia Patton MD Referring Provider Active Start: May 29, 2024 End: May 29, 2024 FREDRICK MaresC Attending Provider Active Star t: May 29, 2024 End: May 29, 2024 Team Status: Inactive Member Role Status Dates Dr. Natalia Patton MD Primary Care Provider Active Start: June 20, 2024 End: June 20, 2024 Dr. Natalia Patton MD Referring Provider Active Start: June 20, 2024 End: June 20, 2024 Austin ORDOÑEZ PA Attending Provider Active Start: June 20, 2024 End: June 20, 2024 Team Status: Inactive Member Role Status Dates Dr. Natalia Patton MD Primary Care Provider Active Start: September 03, 2024 End: September 03, 2024 Dr. Natalia Patton MD Referring Provider Active Start: September 03, 2024 End: September 03, 2024 Kevin Panda HOT PIPE GAUGER, HOT PIPE GAUGER-C Attending Provider Active S tart: September 03, 2024 End: September 03, 2024 Team Status: Active Member Role/Relationship Status Dates Dr. Natalia Patton MD Primary Care Provider Active Team Status: Inactive Member Role/Relationship Status Dates Dr. Natalia Patton MD Primary Care Provider Active Start: May 29, 2024 End: May 29, 2024 Dr. Natalia Patton MD Referring Provider Active Start: May 29, 2024 End: May 29, 2024 Juan Moies , HOT PIPE GAUGER-C Attending Provider Active Star t: May 29, 2024 End: May 29, 2024 Team Status: Inactive Member Role/Relationship Status Dates Dr. Natalia Patton MD Primary Care Provider Active Start: June 20, 2024 End: June 20, 2024 Dr. Natalia Patton MD Referring Provider Active Start: June 20, 2024 End: June 20, 2024 Austin ORDOÑEZ PA Attending Provider Active Start: June 20, 2024 End: June 20, 2024 Team Status: Inactive Member Role/Relationship Status Dates Dr. Natalia Patton MD Primary Care Provider Active Start: September 03, 2024 End: September 03, 2024 Dr. Natalia Patton MD Referring Provider Active Start: September 03, 2024 End: September 03, 2024 Kevin Panda HOT PIPE GAUGER, HOT PIPE GAUGER-C Attending Provider Active S tart: September 03, 2024 End: September 03, 2024 Team Status: Inactive Member Role/Relationship Status Dates Dr. Natalia Patton MD Primary Care Provider Active Start: September 26, 2024 End: September 26, 2024 Dr. Natalia Patton MD Referring Provider Active Start: September 26, 2024 End: September 26, 2024 SMITA Geronimo Attending Provider Active Start: September 26, 2024 End: September 26, 2024 Team Status: Inactive Member Role/Relationship Status Dates Dr. Natalia Patton MD Primary Care Provider Active Start: September 03, 2024 End: September 03, 2024 Dr. Natalia Patton MD Referring Provider Active Start: September 03, 2024 End: September 03, 2024 Kevin Panda HOT PIPE GAUGER, HOT PIPE GAUGER-C Attending Provider Active S tart: September 03, 2024 End: September 03, 2024 Team Status: Inactive Member Role/Relationship Status Dates Dr. Natalia Patton MD Primary Care Provider Active Start: September 26, 2024 End: September 26, 2024 Dr. Natalia Patton MD Referring Provider Active Start: September 26, 2024 End: September 26, 2024 SMITA Geronimo Attending Provider Active Start: September 26, 2024 End: September 26, 2024 Team Status: Inactive Member Role/Relationship Status Dates Dr. Natalia Patton MD Primary Care Provider Active Start: November 17, 2024 End: November 17, 2024 Dr. Natalia Patton MD Referring Provider Active Start: November 17, 2024 End: November 17, 2024 SMITA Kelly Attending Provider Active St art: November 17, 2024 End: November 17, 2024 INFORMATION SOURCE (unrecogn ized section and content) DATE CREATED AUTHOR 07/16/2024 [facility] DATE CREATED AUTHOR AUTHOR'S ORGANIZ ATION 11/30/2024 [facility] FOR RECORDS PERTAINING TO PATIENTS WHO ARE OR HAVE BEEN ENROLLED IN A CHEMICAL DEPENDENCY/SUBSTANCEABUSE PROGRAM, SOME INFORMATION MAY BE OMITTED. This clinical summary was aggregated from multiple sources. Caution should be exercised in using it in the provision of clinical care. This summary normalizes information from multiple sources, and as a consequence, information in this document may materially change the coding, format and clinical context of patient data. In addition, data may be omitted in some cases. CLINICAL DECISIONS SHOULD BE BASED ON THE PRIMARY CLINICAL RECORDS. [employer] [facility]. provides no warranty or guarantee of the accuracy or completeness of information in this document.
--- OUTSIDE RECORDS SUMMARY | 2024-12-28 22:57 | XMS RPT_ITS | CCD ---
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 Kevin Ashford Primary Care Provider Dr. Kevin Ashford Referring Provider [phone] Joe, PA Kayleigh Attending Provider Unavailab le [...] Provider Dr. Natalia Patton Attending Provider [phone] Unavailable Primary Care Provider UnavailFIFI Alvarez Referring Unavailable FIFI ALCOCER Attending Unavailable Dr. Natalia Patton MD Primary Care Provider Dr. Natalia Patton MD Attending Provider Dr. Natalia Patton MD Referring Provider Meek Berry Attending Provider Juan Tuttle Attending Provider [phone] Austin Botello Attending Provider [facility] Kevin BARRERA Attending Provider [phone] Abdi HINKLE, Natalia Primary Care Provider [phone] Abdi HINKLE, Natalia Referring Provider Abdi HINKLE, Natalia Primary Care Provider [phone] Abdi HINKLE, Dr. Fisher Referring Provider Austin Botello Attending Provider Zoran Harp Attending Provider Cleveland, Natalia Referring Unavailable Cleveland, Natalia Primary Care Unavailable Austin Botello Attending Unavailable Abdi, Natalia Primary Care Unavailable Austin Botello Attending Unavailable Austin Botello Referring Unavailable Cleveland, Natalia Referring Unavailable Cleveland, Natalia Attending Unavailable Abdi, Natalia Primary Care Unavailable Cleveland, Natalia Attending Unavailable Abdi, Natalia Primary Care Unavailable Cleveland, Ntaalia Attending Unavailable Abdi, Natalia Primary Care Unavailable Cleveland, Natalia Referring Unavailable Abdi, Natalia Referring Unavailable Cleveland, Natalia Primary Care Unavailable Zoran Harp Attending Unavailable Cleveland, Natalia Primary Care Unavailable Cleveland, Natalia Referring Unavailable Austin Botello Attending Unavailable Cleveland, Natalia Primary Care Unavailable Cleveland, Natalia Referring Unavailable Austin Botello Attending Unavailable Abdi, Natalia Attending Unavailable Cleveland, Natalia Referring Unavailable Cleveland, Natalia Primary Care Unavailable Cleveland, Natalia Primary Care Unavailable Cleveland, Natalia Referring Unavailable Austin Botello Attending Unavailable Cleveland, Natalia Primary Care Unavailable Cleveland, Natalia Referring Unavailable Austin Botello Attending Unavailable Abdi, Natalia Referring Unavailable Meek Berry Attending Unavailable Abdi, Natalia Primary Care Unavailable Juan Moise Attending Unavailable Abdi, Natalia Primary Care Unavailable Cleveland, Natalia Referring Unavailable Cleveland, Natalia Referring Unavailable Darrin Hackett Attending Unavailable Cleveland, Natalia Primary Care Unavailable Austin Botello Attending Unavailable Cleveland, Natalia Primary Care Unavailable Abdi, Natalia Referring Unavailable Abdi, Natalia Referring Unavailable Roof UNION LABORER, Kevin Villanueva Attending Unavailable Cleveland, Natalia Primary Care Unavailable Allergies Allergy Classification Reported Allergen(s) Allergy Type Date of Onset Reaction(s) Facility (7 sources) DULoxetine Drug Allergy 7 Rasg, edema [facility] Work Phone: (8 sources) DULoxetine Drug Allergy 1 Rash [facility] (8 sources) Sulfamethoxazole Drug Allergy 1 Headache and elevated BP [facility] (8 sources) Trimethoprim Drug Allergy 1 Headache and elevated BP [facility] (1 source) DULoxetine Drug Allergy 5 [facility] Repository (1 source) Sulfamethoxazole Drug Allergy 5 [facility] Repository (1 source) Trimethoprim Drug Allergy 5 [facility] Repository Medications Current Medications Medication Drug Class(es) [...] tablet by mouth twice daily AMOXICILLIN-POT CLAVULANATE [id number] Fifi Caicedo PA-C Start: 06-02-2016 End: 06-12-2016 AMOXICILLIN-POT CLAVULANATE 875-125 MG TABS Take one tab every 12 hours AMOXICILLIN-POT CLAVULANATE [id number] Meek ORDOÑEZ azithromycin 250 mg oral tablet [...] KIMBERLY Albarran CAPS as directed BENZONATATE CAPS [id number] Meek ORDOÑEZ Start: 06-02-2016 End: 06-05-2016 KIMBERLY ALDRIDGE CAPS as dire cted BENZONATATE CAPS [id number] Meek ORDOÑEZ cephalexin 500 mg oral capsule [...] 17, 2024 1:00am September 03, 2024 8:53am [id number] IFENESIN LIQD (7 sources) Start: 06-02-2016 MUCINEX FAST-MAX LIQD as directed PHENYLEPHRINE-AP AP-GUAIFENESIN LIQD [id number] Meek ORDOÑEZ microencapsulated potassium chloride 20 meq [...] PREDNISONE TAB S as directed PREDNISONE TABS [id number] Meek ORDOÑEZ Start: 06-02-2016 End: 06-05-2016 PREDNISONE TABS as directed PREDNISONE TABS [id number] Meek ORDOÑEZ 0.25 mg, 0.5 mg dose [...] TABS 1 tablet every 12 hours SULFAMETHOXAZOLE-TRIMETHOPRIM [id number] Austin ORDOÑEZ 0.5 ml SUMAtriptan 12 mg/ml auto-injector (20 sources) Serotonin-1b and Serotonin-1d Receptor Agonist Start: 09-14-2019 End: 05-17-2024 Sumatriptan Succinate 6 mg/0 .5 mL pen injector Discontinued 6 mg SC NEEDED as needed for Migraine Symptoms 1 0 September 29, 2023 4:25pm May 17, 2024 1:05pm Start: 05-26-2016 IMITREX TABS T chantal as directed SUMATRIPTAN SUCCINATE TABS [id number] Meek ORDOÑEZ Start: 09-21-2014 End: 09-14-2019 take [...] Vis andrea 11-17-2024 Internal Medicine Office Visit [facility] [address] [place] [address] OFFICE VISIT Date of Service: 11/17/24 MR#: [id number] Acct: [id number] Name: KADIE MAK Shelli Rep #: [id number] : 1980 Provider: SMITA John Age/Sex: 44/F Location: [facility] Status: Signed Intake Vital Signs 09/03/24 08:54 [...] 2 weeks Chief Complaint: left hand numb Seasoner Required: No Accompanied by: Self Is patient [...] left hand numb for about a month [facility] Medical History Flu-like symptoms Gastroenteritis Left wrist [...] house current occupational status: employed current occupation: [employer] sexually active: No Smoking Status: Former smoker [...] Yes additional social history: 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 Normal [facility] Urgent Care Visit Reporton 0 09-26-2024 Urgent Care Visit Report [facility] [address], [address] [place] [address] OFFICE VISIT Date of Service: 09/26/24 MR#: [id number] Acct: [id number] Name: KADIE MAK Rep #: [id number] : 1980 Provider: SMITA Carr Age/Sex: 44/F [...] she has a sore throat from drainage. 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 Normal [facility] Urgent Care Visit Reporton 0 09-03-2024 Urgent Care Visit Report [facility] [address], [address] [place] [address] OFFICE VISIT Date of Service: 09/03/24 MR#: [id number] Acct: [id number] Name: KADIE MAK Rep #: [id number] : 1980 Provider: HOLLY villanueva Age/Sex: 44/F Location: [facility] Status: Signed Intake Vital Signs 05/17/24 11:41 [...] house current occupational status: employed current occupation: [employer] sexually active: No Smoking Status: Former [...] Yes additional social history: 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 She states she originally noted chills and fever. She also notes a new cough that has become productive over the last three days. She acknowledges body aches. 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 ROS Const Constitutional: [...] phlegm co (more content not included)... Normal [facility] XR Chest 2 Viewson No acute consolidative process. Report Dictated on Electronically Signed By: Ej Steele DR Electronically Signed Date/Time: 07/14/2024 8:20 PM EDT [facility] Patient Name: KADIE MAK : [...] or effusion. No displaced rib fractures seen. [facility] Ej Steele MD - 07/14/2024 [...] Electronically Signed Date/Time: 07/14/2024 8:20 PM EDT [facility] Radiology Study observation (narrative) [facility] XR Chest 2 ViewsOrdered By: Ej Steele on 07-14-2024 [employer] Work Phone: No Panel InformationOrdered By: Austin Back on 06-20-2024 Influenza Types A,B Rapid (Clinic) Negative [facility] POC SARS CoV-2 Antigen Negative [facility] Rapid group A Streptococcus antigen assay at point of careOrdered By: Austin Back on 06-20-2024 S. pyogenes Ag IA.rapid Ql (Throat) Negative [facility] Urgent Care Visit Reporton 0 06-20-2024 Urgent Care Visit Report [facility] [address], [address] [place] [address] OFFICE VISIT Date of Service: 06/20/24 MR#: [id number] Acct: [id number] Name: KADIE MAK Rep #: [id number] : 1980 Provider: SMITA Carr Age/Sex: 44/F Location: [facility] Status: Signed Intake Vital Signs 05/17/24 11:41 06/20/24 12:17 Height 5 ft 4 in BP 108/58 L Blood Pressure Location Lt brachial Position Sitting Respiration 16 Pulse 72 Pulse Source NIBP Temp 98.6 F Temp Source Oral Pulse Oximetry (%) 96 Oxygen Delivery Method room air Intake Visit Reasons: COUGH, SORE THROAT, BODY ACHES Chief Complaint: cough, ST, BA, wheeze Seasoner Required: No Is patient in pain?: No [...] to strep by sons toothbrush. denies fever. 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 No iucy-sml-bufyapy products taken to assist. Non-smoker. No other [...] and no (more content not included)... Normal [facility] Urgent Care Visit Reporton 0 05-29-2024 Urgent Care Visit Report [facility] [address], [address] [place] [address] OFFICE VISIT Date of Service: 05/29/24 MR#: [id number] Acct: [id number] Name: KADIE MAK Rep #: [id number] : 1980 Provider: HOLLY Moise Age/Sex: 44/F Location: [facility] Status: Signed Intake Vital Signs 05/17/24 11:41 [...] it. Patient states her throat feels better. 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 Normal [facility] Laboratory - Microbiology an d Antimicrobial susceptibilityOrdered By: Meek Gloria on 05-25-2024 SARS-CoV-2 (COVID-19) RNA SANDRITA+probe Ql (Unsp spec) Not detected [facility] No Panel InformationOrdered By: Meek Gloria on 05-25-2024 Influenza Types A,B Rapid (Clinic) Negative [facility] Urgent Care Visit Reporton 0 05-25-2024 Urgent Care Visit Report [facility] [address], [address] [place] [address] OFFICE VISIT Date of Service: 05/25/24 MR#: [id number] Acct: [id number] Name: KADIE MAK Rep #: [id number] : 1980 Provider: SMITA Cerrato Age/Sex: 44/F Location: [facility] Status: Signed Intake Vital Signs 05/17/24 11:41 [...] taking Advil cold and flu and ibuprofen. 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 Normal [facility] Urgent Care Visit Reporton 0 04-25-2024 Urgent Care Visit Report [facility] [address], [address] [place] [address] OFFICE VISIT Date of Service: 04/25/24 MR#: [id number] Acct: [id number] Name: KADIE MAK Rep #: [id number] : 1980 Provider: SMITA Carr Age/Sex: 44/F Location: [facility] Status: Signed Intake Vital Signs 03/14/24 15:33 04/25/24 11:53 Height 5 ft 4 in BP 130/72 H Blood Pressure Location Lt brachial Position Sitting Respiration 14 Pulse 64 Pulse Source NIBP Temp 98.0 F Temp Source Oral Pulse Oximetry (%) 97 Oxygen Delivery Method room air Intake Visit Reasons: STOMACH FLU Chief Complaint: vomiting, diarrhea Seasoner Required: No Is patient in pain?: No [...] vomiting, nausea, diarrhea. had fever yesterday 102. 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 No history of hematemesis, he matochezia, or melena. No complaints of fever, sweats, rash, or chest pressure/shortness of breath/dyspnea on exertion. Non-smoker. Several close contacts with similar GI complaints. No aflk-gji-vjdgpfe products taken to assist. No other associated symptoms and no other alleviating/aggravat ing factors. ROS Const Constitutional: No other (As above) Exam Const General: cooperative, healthy appearing and no acute distress Orientation: alert and awake HENPR Head: normal to inspection Ears: hearing grossly [...] tender o (more content not included)... Normal [facility] Internal Medicine Office Vis andrea 04-09-2024 Internal Medicine Office Visit [facility] [address] [place] [address] [place] [address] OFFICE VISIT Date of Service: 05/17/24 MR#: [id number] Acct: [id number] Name: KADIE MAK Rep #: [id number] : 1980 Provider: Dr. Natalia lux MD Age/Sex: 44/F Location: [facility] Status: Signed Intake Vital Signs 03/14/24 15:33 [...] after eating and back right sided pain Seasoner Required: No Accompanied by: Self Is patient [...] (Updated 05/17/24 @ 11:[address] 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 She still participates in [...] tired through (more content not included)... Normal [facility] Quantiferon TB-Gold+on 03-20 QFT MITOGEN NAYLA > 10.00 Normal . [facility] Comment on above: Order Comment: Mikel shafer Comment: A duplicate report has been generated due to demographic Specimen Comment: updates. Performed By: #### L 3400.8000 #### [facility] Laboratory [address] [place], [address] QFT NIL VALUE 0 IU/mL Normal . [facility] Comment on above: Order Comment: Mikel shafer Comment: A duplicate report has been generated due to demographic Specimen Comment: updates. Performed By: #### L 3400.8000 #### [facility] [address] [place], [address] QFT TB GOLD+ Comment Normal . [facility] Comment on above: Order Comment: Mikel shafer [...] test. Performed By: #### L 3400.8000 #### [facility] [address] [place], [address] QFT TB POS CRIT Negative Normal Negative [facility] Comment on above: Order Comment: Mikel shafer [...] interferon gamma. Chemiluminescence immunoassay methodology Performed at: [facility] [employer] [facility] [id number] Hospital Laboratory Technician: Frank Wilson PhD, Phone: [phone] Performed By: #### L 3400.8000 #### [facility] [address] [place], [place], [address] QFT TB1+ AG NAYLA 0 IU/mL Normal . [facility] Comment on above: Order Comment: Speci men Comment: A duplicate report has been generated due to demographic Specimen Comment: updates. Performed By: #### L 3400.8000 #### [facility] [address] [place], [place], [address] QFT TB2+ AG NAYLA 0 IU/mL Normal . [facility] Comment on above: Order Comment: Speci men Comment: A duplicate report has been generated due to demographic Specimen Comment: updates. Performed By: #### L 3400.8000 #### [facility] [address] [place], [place], [address] Office Visit Reporton 2023 Office Visit Report [facility] [address] [place] [address] OFFICE VISIT Date of Service: 03/15/24 MR#: [id number] Acct: [id number] Patient: KADIE MAK Rep #: [id number] : 1980 Provider: SMITA Carr Age/Sex: 44/F Location: [facility] Status: Signed Intake Vital Signs 03/14/24 15:33 [...] Tanner Signature: Date (if applicable) CC: Normal [facility] Vitamin D,25 Hydroxyon 03-16 Vitamin D 25-OH 26.4 ng/mL Normal [facility] Comment on above: Result Comment: Liana min D 25(OH) Status Range Deficiency <20 ng/mL (50nmol/L) Insufficiency 20 - 30 ng/mL (50 - 75 nmol/L) Sufficiency 30 - 100 ng/mL (75 - 250 nmol/L) Toxicity >100 ng/mL (>250 nmol/L) Performed By: #### L 506.1000, L100.0100, L501.9985, L500.4050 #### [facility] [address] [place], [address] CBC W/Diff, Automatedon 02-26 Absolute Lymph 2.21 X10 3/uL Normal 0.83-4.51 [facility] Comment on above: Performed By: #### L 506.1000, L100.0100, L501.9985, L500.4050 #### [facility] [address] [place], [address] Absolute Neut 2.6 X10 3/uL Normal 2.0-7.7 [facility] Comment on above: Performed By: #### L 506.1000, L100.0100, L501.9985, L500.4050 #### [facility] [address] [place], [address] Basophils/100 WBC (Bld) 0.4 % Normal 0-1 [facility] Comment on above: Performed By: #### L 506.1000, L100.0100, L501.9985, L500.4050 #### [facility] [address] [place], [address] Eosinophils/100 WBC (Bld) 4.3 % Normal 0-5 [facility] Comment on above: Performed By: #### L 506.1000, L100.0100, L501.9985, L500.4050 #### [facility] [address] [place], [address] Erythrocyte distribution width (RBC) [Ratio] 12.2 % Normal 11.6-14.6 [facility] Comment on above: Performed By: #### L 506.1000, L100.0100, L501.9985, L500.4050 #### [facility] [address] [place], [address] Hematocrit (Bld) [Volume fraction] 43.1 % Normal 37-47 [facility] Comment on above: Performed By: #### L 506.1000, L100.0100, L501.9985, L500.4050 #### [facility] [address] [place], [address] Hemoglobin (Bld) [Mass/Vol] 14.0 g/dL Normal 12.0-15.0 [facility] Comment on above: Performed By: #### L 506.1000, L100.0100, L501.9985, L500.4050 #### [facility] [address] [place], [address] IG% 0.200 Normal 0.0-0.9 [facility] Comment on above: Result Comment: IG% - Immature Granulocytes (promyelocytes, myelocytes and metamyelocytes) > 1% indicates that a LEFT SHIFT is Present. Performed By: #### L 506.1000, L100.0100, L501.9985, L500.4050 #### [facility] [address] [place], [address] Lymphocytes/100 WBC (Bld) 40.0 % Normal 19-41 [facility] Comment on above: Performed By: #### L 506.1000, L100.0100, L501.9985, L500.4050 #### [facility] [address] [place], [address] MCH (RBC) [Entitic mass] 27.8 pg Normal 27.0-32.0 [facility] Comment on above: Performed By: #### L 506.1000, L100.0100, L501.9985, L500.4050 #### [facility] [address] [place], [address] MCHC (RBC) [Mass/Vol] 32.5 g/dL Normal 32-36 [facility] Comment on above: Performed By: #### L 506.1000, L100.0100, L501.9985, L500.4050 #### [facility] [address] [place], [address] MCV (RBC) [Entitic vol] 85.7 fL Normal 81-99 [facility] Comment on above: Performed By: #### L 506.1000, L100.0100, L501.9985, L500.4050 #### [facility] [address] [place], [address] Monocytes/100 WBC (Bld) 8.5 % Normal 0-10 [facility] Comment on above: Performed By: #### L 506.1000, L100.0100, L501.9985, L500.4050 #### [facility] [address] [place], [address] Neutrophils/100 WBC (Bld) 46.6 % Low 47-70 [facility] Comment on above: Performed By: #### L 506.1000, L100.0100, L501.9985, L500.4050 #### [facility] [address] [place], [address] Nucleated RBC (Bld) [#/Vol] 0 10*3/uL Normal 0-5 [facility] Comment on above: Performed By: #### L 506.1000, L100.0100, L501.9985, L500.4050 #### [facility] [address] [place], [address] Platelet mean volume (Bld) [Entitic vol] 12.1 fL High 6.2-12.0 [facility] Comment on above: Performed By: #### L 506.1000, L100.0100, L501.9985, L500.4050 #### [facility] [address] [place], [address] Platelets (Bld) [#/Vol] 169 10*3/uL Normal 150-450 [facility] Comment on above: Performed By: #### L 506.1000, L100.0100, L501.9985, L500.4050 #### [facility] [address] [place], [address] RBC (Bld) [#/Vol] 5.03 10*6/uL Normal 4.2-5.4 [facility] Comment on above: Performed By: #### L 506.1000, L100.0100, L501.9985, L500.4050 #### [facility] [address] [place], [address] RDW SD 38.0 fl Normal 35.1-43.9 [facility] Comment on above: Performed By: #### L 506.1000, L100.0100, L501.9985, L500.4050 #### [facility] [address] [place], [address] WBC (Bld) [#/Vol] 5.5 10*3/uL Normal 4.4-11.0 [facility] Comment on above: Performed By: #### L 506.1000, L100.0100, L501.9985, L500.4050 #### [facility] [address] [place], [address] Comprehensive Metabolic Prof flon 03-15-2024 Albumin [Mass/Vol] 4.0 g/dL Normal 3.2-5.0 [facility] Comment on above: Order Comment: FASTI NG. COMING BACK ANOTHER DAY FOR THE LIPID. Performed By: #### L 506.1000, L100.0100, L501.9985, L500.4050 #### [facility] [address] [place], [address] Albumin/Globulin [Mass ratio] 1.0 {ratio} Normal 0.9-2.4 [facility] Comment on above: Order Comment: FASTI NG. COMING BACK ANOTHER DAY FOR THE LIPID. Performed By: #### L 506.1000, L100.0100, L501.9985, L500.4050 #### [facility] [address] [place], [address] ALK P 79 U/L Normal 45-117 [facility] Comment on above: Order Comment: FASTI NG. COMING BACK ANOTHER DAY FOR THE LIPID. Performed By: #### L 506.1000, L100.0100, L501.9985, L500.4050 #### [facility] [address] [place], [address] ALT [Catalytic activity/Vol] 82 U/L High 13-56 [facility] Comment on above: Order Comment: FASTI NG. COMING BACK ANOTHER DAY FOR THE LIPID. Performed By: #### L 506.1000, L100.0100, L501.9985, L500.4050 #### [facility] [address] [place], [address] AST [Catalytic activity/Vol] 40 U/L High 15-37 [facility] Comment on above: Order Comment: FASTI NG. COMING BACK ANOTHER DAY FOR THE LIPID. Performed By: #### L 506.1000, L100.0100, L501.9985, L500.4050 #### [facility] [address] [place], [address] Bilirubin [Mass/Vol] 0.40 mg/dL Normal 0.20-1.00 [facility] Comment on above: Order Comment: FASTI NG. COMING BACK ANOTHER DAY FOR THE LIPID. Result Comment: For patients on eltrombopag therapy, use of Dimension [place] TBIL is not recommended. Performed By: #### L 506.1000, L100.0100, L501.9985, L500.4050 #### [facility] [address] [place], [address] BUN/CRE 19.2 RATIO Normal 10-20 [facility] Comment on above: Order Comment: FASTI NG. COMING BACK ANOTHER DAY FOR THE LIPID. Performed By: #### L 506.1000, L100.0100, L501.9985, L500.4050 #### [facility] [address] [place], [address] CA,Total 9.6 mg/dL Normal 8.5-10.1 [facility] Comment on above: Order Comment: FASTI NG. COMING BACK ANOTHER DAY FOR THE LIPID. Performed By: #### L 506.1000, L100.0100, L501.9985, L500.4050 #### [facility] [address] [place], [address] Chloride [Moles/Vol] 102 mmol/L Normal 98-107 [facility] Comment on above: Order Comment: FASTI NG. COMING BACK ANOTHER DAY FOR THE LIPID. Performed By: #### L 506.1000, L100.0100, L501.9985, L500.4050 #### [facility] [address] [place], [address] CO2 [Moles/Vol] 31.0 mmol/L Normal 21.0-32.0 [facility] Comment on above: Order Comment: FASTI NG. COMING BACK ANOTHER DAY FOR THE LIPID. Performed By: #### L 506.1000, L100.0100, L501.9985, L500.4050 #### [facility] [address] [place], [address] Creatinine [Mass/Vol] 0.78 mg/dL Normal 0.55-1.02 [facility] Comment on above: Order Comment: FASTI NG. COMING BACK ANOTHER DAY FOR THE LIPID. Result Comment: The validity of the calculated GFR GFRAA in patients over 70 years has not been determined. Clinical correlation is essential. Performed By: #### L 506.1000, L100.0100, L501.9985, L500.4050 #### [facility] [address] [place], [address] EST GFR - AA 103 mL/min Normal >60 [facility] Comment on above: Order Comment: FASTI NG. COMING BACK ANOTHER DAY FOR THE LIPID. Result Comment: Afri can Tanzanian GFR Calc Performed By: #### L 506.1000, L100.0100, L501.9985, L500.4050 #### [facility] [address] [place], [address] GAP 5 Normal 5-15 [facility] Comment on above: Order Comment: FASTI NG. COMING BACK ANOTHER DAY FOR THE LIPID. Performed By: #### L 506.1000, L100.0100, L501.9985, L500.4050 #### [facility] [address] [place], [address] GFR/1.73 sq M.predicted among non-blacks MDRD (S/P/Bld) [Vol rate/Area] 85 mL/min/{1.73_m2} Normal >60 [facility] Comment on above: Order Comment: FASTI NG. COMING BACK ANOTHER DAY FOR THE LIPID. Result Comment: Non- GFR Calc Performed By: #### L 506.1000, L100.0100, L501.9985, L500.4050 #### [facility] [address] [place], [address] Globulin (S) [Mass/Vol] 4.1 g/dL Normal 2.2-4.2 [facility] Comment on above: Order Comment: FASTI NG. COMING BACK ANOTHER DAY FOR THE LIPID. Performed By: #### L 506.1000, L100.0100, L501.9985, L500.4050 #### [facility] [address] [place], [address] Glucose [Mass/Vol] 122 mg/dL High 74-106 [facility] Comment on above: Order Comment: FASTI NG. COMING BACK ANOTHER DAY FOR THE LIPID. Result Comment: Fast ing Glucose result from 100 to 125 mg/dL suggests IMPAIRED HOMEOSTASIS per A.D.A. criteria. Performed By: #### L 506.1000, L100.0100, L501.9985, L500.4050 #### [facility] [address] [place], [address] Potassium [Moles/Vol] 3.3 mmol/L Low 3.5-5.1 [facility] Comment on above: Order Comment: FASTI NG. COMING BACK ANOTHER DAY FOR THE LIPID. Performed By: #### L 506.1000, L100.0100, L501.9985, L500.4050 #### [facility] [address] [place], [address] Sodium [Moles/Vol] 138 mmol/L Normal 136-145 [facility] Comment on above: Order Comment: FASTI NG. COMING BACK ANOTHER DAY FOR THE LIPID. Performed By: #### L 506.1000, L100.0100, L501.9985, L500.4050 #### [facility] [address] [place], [address] T PROT 8.1 g/dL Normal 6.4-8.2 [facility] Comment on above: Order Comment: FASTI NG. COMING BACK ANOTHER DAY FOR THE LIPID. Performed By: #### L 506.1000, L100.0100, L501.9985, L500.4050 #### [facility] [address] [place], [address] Urea nitrogen [Mass/Vol] 15 mg/dL Normal 7-18 [facility] Comment on above: Order Comment: FASTI NG. COMING BACK ANOTHER DAY FOR THE LIPID. Performed By: #### L 506.1000, L100.0100, L501.9985, L500.4050 #### [facility] [address] [place], [address] Hemoglobin A1con 03-15-2024 HbA1c (Bld) [Mass fraction] 5.4 % Normal 3.8-5.6 [facility] Comment on above: Result Comment: Norm al < 5.7 % Prediabetic 5.7 - 6.4 % Diabetic >or= 6.5 % Please note range changes. Performed By: #### L 506.1000, L100.0100, L501.9985, L500.4050 #### [facility] [address] [place], [address] Urgent Care Visit Reporton 1 05-16-2023 Urgent Care Visit Report [facility] [address] , [address] [place], [place] [address] OFFICE VISIT Date of Service: 03/15/24 MR#: [id number] Acct: [id number] Name: KADIE MAK Rep #: [id number] : 1980 Provider: SMITA Carr Age/Sex: 44/F Location: [facility] Status: Signed Intake Vital Signs 01/24/24 14:38 [...] house current occupational status: employed current occupation: [employer] sexually active: No Smoking Status: Former smoker [...] Yes additional social 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: 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: left wrist injury Details: KADIE [...] Cosigner Signature: Date (if applicable) CC: Normal [facility] Urgent Care Visit Reporton 1 Urgent Care Visit Report [facility] [address], [address] [place] [address] OFFICE VISIT Date of Service: 01/24/24 MR#: [id number] Acct: [id number] Name: KADIE MAK Rep #: [id number] : 1980 Provider: SMITA Carr Age/Sex: 44/F Location: [facility] Status: Signed Intake Vital Signs 05/03/23 14:28 [...] INJURY/UNK INJURY Chief Complaint: left wrist injury Seasoner Required: No Is patient in pain?: Yes [...] house current occupational status: employed current occupation: [employer] sexually active: No Smoking Status: Former [...] Yes additional social history: 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 No history of trauma to the same and no history of fall. PMH NC. [id number]. Pain is aggravated to touch and with range of motion at the wrist, alleviated minimally with rest. No left elbow complaints. No kcef-dbl-[id number] products taken to assist. No other associated [...] negative Phale (more content not included)... Normal [facility] Absolute lymphocyte countOrd ered By: Dr. Patton on 04-23-2022 Lymphocytes Auto (Unsp spec) [#/Vol] 1.85 10*3/uL 0.83-4.51 [facility] Basophil percentageOrdered B y: Dr. Patton on 04-23-2022 Basophils/100 WBC (Bld) 0.4 % 0-1 [facility] Eosinophils/100 WBC (Bld) 4.3 % 0-5 [facility] Neutrophils (Bld) [#/Vol] 3.0 10*3/uL 2.0-7.7 [facility] Neutrophils/100 WBC (Bld) 53.4 % 47-70 [facility] WBC (Bld) [#/Vol] 5.5 10*3/uL 4.4-11.0 [facility] Blood erythrocytes count (nu mber/volume)Ordered By: Dr. Patton on 04-23-2022 RBC (Bld) [#/Vol] 4.80 10*6/uL 4.2-5.4 [facility] Blood hemoglobin measurement (mass/volume)Ordered By: Dr. Patton on 04-23-2022 Hemoglobin (Bld) [Mass/Vol] 13.9 g/dL 12.0-15.0 [facility] Blood lymphocytes/100 leukoc ytesOrdered By: Dr. Patton on 04-23-2022 Lymphocytes/100 WBC (Bld) 33.4 % 19-41 [facility] Blood monocytes/100 leukocyt esOrdered By: Dr. Patton on 04-23-2022 Monocytes/100 WBC (Bld) 8.1 % 0-10 [facility] Blood platelet mean volumeOr dered By: Dr. Patton on 04-23-2022 Platelet mean volume (Bld) [Entitic vol] 12.1 fL 6.2-12.0 [facility] Determination of erythrocyte mean corpuscular volume (MCV)Ordered By: Dr. Patton on 04-23-2022 MCV (RBC) [Entitic vol] 83.5 fL 81-99 [facility] Hematocrit Auto (Bld) [Volum e fraction]Ordered By: Dr. Patton on 04-23-2022 Hematocrit (Bld) [Volume fraction] 40.1 % 37-47 [facility] - Hematology and Cell countsOrdered By: Dr. Patton on 04-23-2022 Erythrocyte distribution width (RBC) [Entitic vol] 36.2 fL 35.1-43.9 [facility] Erythrocyte distribution width (RBC) [Ratio] 12.0 % 11.6-14.6 [facility] Immature granulocytes/100 WBC (Bld) 0.400 % 0.0-0.9 [facility] Comment on above: IG% - Immature Granu locytes (promyelocytes, myelocytes and metamyelocytes) > 1% indicates that a LEFT SHIFT is Present. MCH (RBC) [Entitic mass] 29.0 pg 27.0-32.0 [facility] Nucleated RBC/100 WBC (Bld) [Ratio] 0 % 0-5 [facility] MCHC Auto (RBC) [Mass/Vol]Or dered By: Dr. Patton on 04-23-2022 MCHC (RBC) [Mass/Vol] 34.7 g/dL 32-36 [facility] Platelets bldOrdered By: Dr. Patton on 04-23-2022 Platelets (Bld) [#/Vol] 176 10*3/uL 150-450 [facility] Whole blood hemoglobin A1c/t otal hemoglobin ratio (mass fraction)Ordered By: Dr. Patton on 04-23-2022 HbA1c (Bld) [Mass fraction] 5.7 % 3.8-5.6 [facility] Comment on above: Normal < 5.7 % Predi abetic 5.7 - 6.4 % Diabetic >or= 6.5 % Please note range changes. Absolute lymphocyte counton 04-07-2021 Lymphocytes Auto (Unsp spec) [#/Vol] 1.58 10*3/uL 0.83-4.51 [facility] Work Phone: Basophil percentageon 2021 Basophil percentage 0 SEEN /hpf [facility] Work Phone: Basophils/100 WBC (Bld) 0.4 % 0-1 [facility] Work Phone: Bilirubin [Mass/Vol] 0.50 mg/dL 0.20-1.00 [facility] Work Phone: Comment on above: For patients on eltr ombopag therapy, use of Dimension [place] TBIL is not recommended. Chloride [Moles/Vol] 107 mmol/L 98-107 [facility] Work Phone: Cholesterol [Mass/Vol] 164 mg/dL <200 [facility] Work Phone: Comment on above: <200 mg/dL Desirable 200-240 mg/dL Borderline >240 mg/dL High Risk Eosinophils/100 WBC (Bld) 4.1 % 0-5 [facility] Work Phone: Glucose [Mass/Vol] 103 mg/dL 74-106 [facility] Work Phone: Comment on above: Fasting Glucose resu lt from 100 to 125 mg/dL suggests IMPAIRED HOMEOSTASIS per A.D.A. criteria.Please note revised GLUCOSE reference range effective 2017. Neutrophils (Bld) [#/Vol] 2.6 10*3/uL 2.0-7.7 [facility] Work Phone: Neutrophils/100 WBC (Bld) 53.4 % 47-70 [facility] Work Phone: [phone] Potassium [Moles/Vol] 4.6 mmol/L 3.5-5.1 [facility] Work Phone: [phone] Protein [Mass/Vol] 7.7 g/dL 6.4-8.2 [facility] Work Phone: Sodium [Moles/Vol] 139 mmol/L 136-145 [facility] Work Phone: Triglyceride [Mass/Vol] 86 mg/dL [facility] Work Phone: Comment on above: The drugs N-Acetylcy steine and Metamizole may falsely depress this assay.Serum Triglycerides Reference Interval Normal <150 mg/dL Borderline high 150 - 199 mg/dL High 200 - 499 mg/dL Very High > or = 500 mg/dL WBC (Bld) [#/Vol] 4.8 10*3/uL 4.4-11.0 [facility] Work Phone: Bilirubin Test strip Ql (U)o n 04-07-2021 Bilirubin Ql (U) Negative Negative [facility] Work Phone: Blood erythrocytes count (nu mber/volume)on 04-07-2021 RBC (Bld) [#/Vol] 4.71 10*6/uL 4.2-5.4 [facility] Work Phone: Blood hemoglobin measurement (mass/volume)on 04-07-2021 Hemoglobin (Bld) [Mass/Vol] 13.3 g/dL 12.0-15.0 [facility] Work Phone: Blood lymphocytes/100 leukoc yteson 04-07-2021 Lymphocytes/100 WBC (Bld) 32.6 % 19-41 [facility] Work Phone: Blood monocytes/100 leukocyt eson 04-07-2021 Monocytes/100 WBC (Bld) 9.1 % 0-10 [facility] Work Phone: Blood platelet mean volumeon 04-07-2021 Platelet mean volume (Bld) [Entitic vol] 12.5 fL 6.2-12.0 [facility] Work Phone: Determination of erythrocyte mean corpuscular volume (MCV)on 04-07-2021 MCV (RBC) [Entitic vol] 85.6 fL 81-99 [facility] Work Phone: Hematocrit Auto (Bld) [Volum e fraction]on 04-07-2021 Hematocrit (Bld) [Volume fraction] 40.3 % 37-47 [facility] Work Phone: Ketones Test strip Ql (U)on 04-07-2021 Ketones Ql (U) Negative Negative [facility] Work Phone: Laboratory - Chemistry and C hemistry - challengeon 04-07-2021 ALP [Catalytic activity/Vol] 72 U/L 45-117 [facility] Work Phone: ALT [Catalytic activity/Vol] 60 U/L 13-56 [facility] Work Phone: CO2 [Moles/Vol] 26.0 mmol/L 21.0-32.0 [facility] Work Phone: Cobalamin (Vitamin B12) [Mass/Vol] 374 pg/mL 211-911 [facility] Work Phone: [phone] Globulin (S) [Mass/Vol] 3.9 g/dL 2.2-4.2 [facility] Work Phone: [phone] Urea nitrogen/Creatinine [Mass ratio] 23.9 mg/mg 10-20 [facility] Work Phone: [phone] Laboratory - Hematology and Cell countson 04-07-2021 Erythrocyte distribution width (RBC) [Entitic vol] 38.5 fL 35.1-43.9 [facility] Work Phone: [phone] Erythrocyte distribution width (RBC) [Ratio] 12.4 % 11.6-14.6 [facility] Work Phone: [phone] Immature granulocytes/100 WBC (Bld) 0.400 % 0.0-0.9 [facility] Work Phone: [phone] Comment on above: IG% - Immature Granu locytes (promyelocytes, myelocytes and metamyelocytes) > 1% indicates that a LEFT SHIFT is Present. MCH (RBC) [Entitic mass] 28.2 pg 27.0-32.0 [facility] Work Phone: [phone] Nucleated RBC/100 WBC (Bld) [Ratio] 0 % 0-5 [facility] Work Phone: [phone] MCHC Auto (RBC) [Mass/Vol]on 04-07-2021 MCHC (RBC) [Mass/Vol] 33.0 g/dL 32-36 [facility] Work Phone: Mucus LM Ql (Urine sed)on Mucus Ql (Urine sed) 0 SEEN /hpf [facility] Work Phone: [phone] Nitrite Test strip Ql (U)on 04-07-2021 Nitrite Ql (U) Negative Negative [facility] Work Phone: [phone] No Panel Informationon 04-07 Estimated GFR (MDRD) Amer 117 mL/min >60 [facility] Work Phone: [phone] Comment on above: GFR Calc Estimated GFR (MDRD) Non-Af Amer 96 mL/min >60 [facility] Work Phone: Comment on above: Non- GFR Calc Thyroid Stimulating Hormone (TSH) 1.34 uIU/mL 0.358-3.74 [facility] Work Phone: Vitamin D 25-Hydroxy 33.6 ng/mL [facility] Work Phone: Comment on above: Vitamin D 25(OH) Sta tus Range Deficiency <20 ng/mL (50nmol/L) Insufficiency 20 - 30 ng/mL (50 - 75 nmol/L) Sufficiency 30 - 100 ng/mL (75 - 250 nmol/L) Toxicity >100 ng/mL (>250 nmol/L) Platelets bldon 04-07-2021 Platelets (Bld) [#/Vol] 107 10*3/uL 150-450 [facility] Work Phone: Protein Test strip Ql (U)on 04-07-2021 Protein Ql (U) Negative Negative [facility] Work Phone: Serum or plasma albumin shivani urement (mass/volume)on 04-07-2021 Albumin [Mass/Vol] 3.8 g/dL 3.2-5.0 [facility] Work Phone: Serum or plasma albumin/glob ulin mass ratioon 04-07-2021 Albumin/Globulin [Mass ratio] 1.0 {ratio} 0.9-2.4 [facility] Work Phone: [phone] Serum or plasma calcium shivani urement (mass/volume)on 04-07-2021 Calcium [Mass/Vol] 9.1 mg/dL 8.5-10.1 [facility] Work Phone: [phone] Serum or plasma cholesterol in HDL measurement (mass/volume)on 04-07-2021 Cholesterol in HDL [Mass/Vol] 58 mg/dL [facility] Work Phone: Comment on above: The drugs N-Acetylcy steine and Metamizole may falsely depress this assay. Reference Range HDL <40 mg/dL Low HDL Cholesterol HDL >or= 60 mg/dL High HDL Cholesterol Serum or plasma cholesterol in VLDL measurement (mass/volume)on 04-07-2021 Cholesterol in VLDL [Mass/Vol] 17 mg/dL 5-40 [facility] Work Phone: Serum or plasma creatinine m easurement (mass/volume)on 04-07-2021 Creatinine [Mass/Vol] 0.71 mg/dL 0.55-1.02 [facility] Work Phone: Comment on above: The validity of the calculated GFR & GFRAA in patients over 70 years has not been determined. Clinical correlation is essential. Serum or plasma low density lipoprotein (LDL) cholesterol measurement (mass/volume)on 04-07-2021 Cholesterol in LDL [Mass/Vol] 89 mg/dL 0-130 [facility] Work Phone: Serum or plasma urea nitroge n measurement (mass/volume)on 04-07-2021 Urea nitrogen [Mass/Vol] 17 mg/dL 7-18 [facility] Work Phone: Squamous epithelial cells de tection in urine sediment by light microscopyon 04-07-2021 Epithelial cells.squamous LM Ql (Urine sed) 0 SEEN /hpf [facility] Work Phone: Thin prep Papanicolaou smear with manual screeningon 04-07-2021 Thin prep Papanicolaou smear with manual screening 28 U/L 15-37 [facility] Work Phone: Thin prep Papanicolaou smear with manual screening 6 5-15 [facility] Work Phone: Urine blood detectionon 03-29 RBC Ql (U) Negative Negative [facility] Work Phone: RBC Ql (U) 0 SEEN /hpf [facility] Work Phone: [phone] Urine clarityon 04-07-2021 Clarity (U) Clear Clear [facility] Work Phone: [phone] Urine color determinationon 04-07-2021 Color (U) Yellow Yellow [facility] Work Phone: Urine glucose detectionon Glucose Ql (U) Normal mg/dl Normal [facility] Work Phone: Urine leukocyte esterase det ection by dipstickon 04-07-2021 Leukocyte esterase Test strip Ql (U) Negative Negative [facility] Work Phone: Urine pHon 04-07-2021 pH (U) 6.0 [pH] [facility] Work Phone: Urine sediment bacteria coun t by microscopy (number/high power field)on 04-07-2021 Bacteria LM.HPF (Urine sed) [#/Area] 0 /[HPF] None Seen [facility] Work Phone: Urine specific gravity measu rementon 04-07-2021 Specific gravity (U) [Rel density] 1.020 [facility] Work Phone: Urobilinogen Auto test strip Ql (U)on 04-07-2021 Urobilinogen Ql (U) Normal mg/dl Normal [facility] Work Phone: Office Visit: UC: Sinusitiso n 02-25-2017 Documentation of current medications (procedure) Done Invalid Interpretation Code [facility] Work Phone: Fall risk assessment No Invalid Interpretation Code [facility] Work Phone: Tobacco smoking status NHIS Never Invalid Interpretation Code [facility] Work Phone: Tobacco smoking status NHIS Tobacco smoking status IDIS Invalid Interpretation Code [facility] Work Phone: Tobacco use HS Never smoker Invalid Interpretation Code [facility] Work Phone: Office Visit: UC: Sinus pres sure/f/u to strepon 02-21-2017 Documentation of current medications (procedure) Done Invalid Interpretation Code [facility] Work Phone: Fall risk assessment No Invalid Interpretation Code [facility] Work Phone: Tobacco smoking status NHIS Never Invalid Interpretation Code [facility] Work Phone: Tobacco use HS Never smoker Invalid Interpretation Code [facility] Work Phone: Microbiology: Culture, R/O S treanthony Ware 02-15-2017 [facility] . Invalid Interpretation Code [facility] Work Phone: [phone] Office Visit: sore throaton 02-13-2017 Documentation of current medications (procedure) Done Invalid Interpretation Code [facility] Work Phone: [phone] Fall risk assessment No Invalid Interpretation Code [facility] Work Phone: [phone] Tobacco smoking status NHIS Never Invalid Interpretation Code [facility] Work Phone: [phone] Tobacco use [facility] Never smoker Invalid Interpretation Code [facility] Work Phone: [phone] Lab Report: Comprehensive Ms tabolic Profilon 06-05-2016 Alanine aminotransferase (ALT) 54 U/L Invalid Interpretation Code 12-78 [facility] Work Phone: [phone] Albumin 3.7 g/dL Invalid Interpretation Code 3.4-5.0 [facility] Phone: [phone] Albumin/Globulin Ratio 0.9 {ratio} Invalid Interpretation Code 0.9-2.4 [facility] Phone: [phone] Alkaline phosphatase (ALP) 54 U/L Invalid Interpretation Code 45-117 [facility] Work Phone: [phone] Anion gap 9 mmol/L Invalid Interpretation Code 5-15 [facility] Phone: [phone] Aspartate aminotransferase (AST) 25 U/L Invalid Interpretation Code 15-37 [facility] Phone: [phone] Bilirubin (total) 0.60 mg/dL Invalid Interpretation Code 0.20-1.00 [facility] Phone: [phone] BUN/Creatinine Ratio 17.1 RATIO Invalid Interpretation Code 10-20 [facility] Work Phone: [phone] Calcium 9.1 mg/dL Invalid Interpretation Code 8.5-10.1 [facility] Work Phone: [phone] Chloride 100 mmol/L Invalid Interpretation Code 98-107 [facility] Work Phone: [phone] CO2 30.0 mmol/L Invalid Interpretation Code 21.0-32.0 [facility] Work Phone: [phone] Creatinine 0.76 mg/dL Invalid Interpretation Code 0.55-1.02 [facility] Work Phone: [phone] eGFR (non-black) 91 mL/min/{1.73_m2} Invalid Interpretation Code >60 [facility] Work Phone: [phone] eGFR (non-black) 110 mL/min/{1.73_m2} Invalid Interpretation Code >60 [facility] Work Phone: [phone] Globulin 4.0 g/dL High 2.3-3.5 [facility] Work Phone: [phone] Glucose mass conc 103 mg/dL Invalid Interpretation Code 70-110 [facility] Work Phone: [phone] Potassium molar conc 3.8 mmol/L Invalid Interpretation Code 3.5-5.1 [facility] Work Phone: [phone] Protein 7.7 g/dL Invalid Interpretation Code 6.4-8.2 [facility] Work Phone: [phone] Sodium 139 mmol/L Invalid Interpretation Code 136-145 [facility] Work Phone: [phone] Urea nitrogen 13 mg/dL Invalid Interpretation Code 7-18 [facility] Work Phone: [phone] Lab Report: Thyroid Stim Hor elmer (TSH)on 06-05-2016 Thyroid stimulating hormone (TSH) 1.01 u[iU]/mL Invalid Interpretation Code 0.358-3.74 [facility] Work Phone: [phone] Replaced Document: (P) CBC W /Diff, Automatedon 06-05-2016 Absolute Neut 2.6 X10 3/UL Invalid Interpretation Code 2.0-7.7 [facility] Phone: [phone] Basophils/100 WBC Auto (Bld) 0.6 % Invalid Interpretation Code 0-1 [facility] Work Phone: [phone] Eosinophils/100 leukocytes 2.1 % Invalid Interpretation Code 0-5 [facility] Phone: [phone] Erythrocyte distribution width Auto Ratio (RBC) 12.4 % Invalid Interpretation Code 11.6-14.6 [facility] Work Phone: [phone] Erythrocytes (RBC) 5.12 10*6/uL Invalid Interpretation Code 4.2-5.4 [facility] Work Phone: [phone] Hematocrit (HCT) 42.3 % Invalid Interpretation Code 37-47 [facility] Work Phone: [phone] Hemoglobin mass conc (Bld) 14.6 g/dL Invalid Interpretation Code 12.0-15.0 [facility] Work Phone: [phone] Immature granulocytes/100 WBC (Bld) 0.400 % Invalid Interpretation Code 0.0-0.9 [facility] Work Phone: [phone] Lymphocytes 1.95 X10 3/UL Invalid Interpretation Code 0.83-4.51 [facility] Work Phone: [phone] Lymphocytes/100 leukocytes 36.8 % Invalid Interpretation Code 19-41 [facility] Phone: [phone] MCH 28.5 pg Invalid Interpretation Code 27.0-32.0 [facility] Phone: [phone] MCHC mass conc (RBC) 34.5 G/GL Invalid Interpretation Code 32-36 [facility] Phone: [phone] MCV 82.6 fL Invalid Interpretation Code 81-99 [facility] Phone: [phone] Monocytes/100 leukocytes 10.4 % High 0-10 [facility] Work Phone: [phone] Neutrophils/100 WBC Auto (Bld) 49.7 % Invalid Interpretation Code 47-70 [facility] Phone: [phone] Platelets 253 10*3/mm3 Invalid Interpretation Code 150-450 [facility] Phone: [phone] PMV by Autumn 10.4 fL Invalid Interpretation Code 6.2-12.0 [facility] Phone: [phone] RDW SD 37.2 fL Invalid Interpretation Code 35.1-43.9 [facility] Phone: [phone] WBC (Leukocytes) 5.3 10*3/uL Invalid Interpretation Code 4.4-11.0 [facility] Phone: [phone] Microbiology: Culture, R/O S trep Aon 05-29-2016 CUSTREPA . Invalid Interpretation Code [facility] Phone: Office Visit: UC: Possible S trep Throaton 05-26-2016 Rapid strep test Negative Invalid Interpretation Code [facility] Work Phone: [phone] Vital Signs Date Time Vital Sign Value Performing Clinician Willis roberts 11-17-2024 07:36-0400 Body height 162.[address] Natalia Patton MD Work Phone: [facility] 11-17-2024 07:36-0400 Body mass index (BMI) [Ratio] 37.8 kg/m2 Dr. Natalia Patton MD Work Phone: [facility] 11-17-2024 07:36-0400 Body temperature 96.7 [degF] Dr. Natalia Patton MD Work Phone: [facility] 11-17-2024 07:36-0400 Body weight 99.[address] Natalia Patton MD Work Phone: [facility] 11-17-2024 07:36-0400 Diastolic blood pressure 70 mm[Hg] Dr. Natalia Patton MD Work Phone: [facility] 11-17-2024 07:36-0400 Heart rate 69 /min Dr. Natalia Patton MD Work Phone: [facility] 11-17-2024 07:36-0400 Respiratory rate 16 /min Dr. Natalia Patton MD Work Phone: [facility] 11-17-2024 07:36-0400 SaO2% (BldA) [Mass fraction] 97 % Dr. Natalia Patton MD Work Phone: [facility] 11-17-2024 07:36-0400 Systolic blood pressure 112 mm[Hg] Dr. Natalia Patton MD Work Phone: [facility] 09-26-2024 12:09-0400 Body temperature 98.4 [degF] Dr. Natalia Patton MD Work Phone: [facility] 09-26-2024 12:09-0400 Diastolic blood pressure 70 mm[Hg] Dr. Natalia Patton MD Work Phone: [facility] 09-26-2024 12:09-0400 Heart rate 72 /min Dr. Natalia Patton MD Work Phone: [facility] 09-26-2024 12:09-0400 Respiratory rate 16 /min Dr. Natalia Patton MD Work Phone: [facility] 09-26-2024 12:09-0400 SaO2% (BldA) [Mass fraction] 98 % Dr. Natalia Patton MD Work Phone: [facility] 09-26-2024 12:09-0400 Systolic blood pressure 110 mm[Hg] Dr. Natalia Patton MD Work Phone: [facility] 09-03-2024 08:54-0400 Body height 162.[address] Natalia Patton MD Work Phone: [facility] 09-03-2024 08:54-0400 Body mass index (BMI) [Ratio] 38 kg/m2 Dr. Natalia Patton MD Work Phone: [facility] 09-03-2024 08:54-0400 Body temperature 98.4 [degF] Dr. Natalia Patton MD Work Phone: [facility] 09-03-2024 08:54-0400 Body weight 100.[address] Natalia Patton MD Work Phone: [facility] 09-03-2024 08:54-0400 Diastolic blood pressure 84 mm[Hg] Dr. Natalia Patton MD Work Phone: [facility] 09-03-2024 08:54-0400 Heart rate 67 /min Dr. Natalia Patton MD Work Phone: [facility] 09-03-2024 08:54-0400 Respiratory rate 16 /min Dr. Natalia Patton MD Work Phone: [facility] 09-03-2024 08:54-0400 SaO2% (BldA) [Mass fraction] 98 % Dr. Natalia Patton MD Work Phone: [facility] 09-03-2024 08:54-0400 Systolic blood pressure 133 mm[Hg] Dr. Natalia Patton MD Work Phone: [facility] 06-20-2024 12:17-0400 Body temperature 98.6 [degF] Dr. Natalia Patton MD Work Phone: [facility] 06-20-2024 12:17-0400 Diastolic blood pressure 58 mm[Hg] Dr. Natalia Patton MD Work Phone: [facility] 06-20-2024 12:17-0400 Heart rate 72 /min Dr. Natalia Patton MD Work Phone: [facility] 06-20-2024 12:17-0400 Respiratory rate 16 /min Dr. Natalia Patton MD Work Phone: [facility] 06-20-2024 12:17-0400 SaO2% (BldA) [Mass fraction] 96 % Dr. Natalia Patton MD Work Phone: [facility] 06-20-2024 12:17-0400 Systolic blood pressure 108 mm[Hg] Dr. Natalia Patton MD Work Phone: [facility] 05-29-2024 10:47-0500 Body temperature 98.4 [degF] Dr. Natalia Patton MD Work Phone: [facility] 05-29-2024 10:47-0500 Diastolic blood pressure 78 mm[Hg] Dr. Natalia Patton MD Work Phone: [facility] 05-29-2024 10:47-0500 Heart rate 73 /min Dr. Natalia Patton MD Work Phone: [facility] 05-29-2024 10:47-0500 SaO2% (BldA) [Mass fraction] 97 % Dr. Natalia Patton MD Work Phone: [facility] 05-29-2024 10:47-0500 Systolic blood pressure 122 mm[Hg] Dr. Natalia Patton MD Work Phone: [facility] 05-25-2024 11:30-0500 Body temperature 98.7 [degF] Dr. Natalia Patton MD Work Phone: [facility] 05-25-2024 11:30-0500 Diastolic blood pressure 62 mm[Hg] Dr. Natalia Patton MD Work Phone: [facility] 05-25-2024 11:30-0500 Heart rate 90 /min Dr. Natalia Patton MD Work Phone: [facility] 05-25-2024 11:30-0500 SaO2% (BldA) [Mass fraction] 96 % Dr. Natalia Patton MD Work Phone: [facility] 05-25-2024 11:30-0500 Systolic blood pressure 120 mm[Hg] Dr. Natalia Patton MD Work Phone: [facility] 05-17-2024 11:41-0500 Body mass index (BMI) [Ratio] 38.3 kg/m2 Dr. Natalia Patton MD Work Phone: [facility] 05-17-2024 11:41-0500 Body temperature 96 [degF] Dr. Natalia Patton MD Work Phone: [facility] 05-17-2024 11:41-0500 Body weight 101.[address] Natalia Patton MD Work Phone: [facility] 05-17-2024 11:41-0500 Diastolic blood pressure 76 mm[Hg] Dr. Natalia Patton MD Work Phone: [facility] 05-17-2024 11:41-0500 Heart rate 67 /min Dr. Natalia Patton MD Work Phone: [facility] 05-17-2024 11:41-0500 Respiratory rate 16 /min Dr. Natalia Patton MD Work Phone: [facility] 05-17-2024 11:41-0500 SaO2% (BldA) [Mass fraction] 98 % Dr. Natalia Patton MD Work Phone: [facility] 05-17-2024 11:41-0500 Systolic blood pressure 128 mm[Hg] Dr. Natalia Patton MD Work Phone: [facility] 04-23-2022 14:33-0500 Body height 162.[address] Kevin Ashford Work Phone: [facility] 04-23-2022 14:33-0500 Body mass index (BMI) [Ratio] 39.4 kg/m2 Dr. Kevin Ashford Work Phone: [facility] 04-23-2022 14:33-0500 Body temperature 97 [degF] Dr. Kevin Ashford Work Phone: [facility] 04-23-2022 14:33-0500 Body weight 104.[address] Kevin Ashford Work Phone: [facility] 04-23-2022 14:33-0500 Diastolic blood pressure 86 mm[Hg] Dr. Kevin Ashford Work Phone: [facility] 04-23-2022 14:33-0500 Heart rate 95 /min Dr. Kevin Ashford Work Phone: [facility] 04-23-2022 14:33-0500 Respiratory rate 16 /min Dr. Kevin Ashford Work Phone: [facility] 04-23-2022 14:33-0500 SaO2% (BldA) [Mass fraction] 98 % Dr. Kevin Ashford Work Phone: [facility] 04-23-2022 14:33-0500 Systolic blood pressure 120 mm[Hg] Dr. Kevin Ashford Work Phone: [facility] 02-26-2022 14:39-0500 Body height 162.[address] Kevin Ashford Work Phone: [facility] Work Phone: 02-26-2022 14:39-0500 Body mass index (BMI) [Ratio] 38.6 kg/m2 Dr. Kevin Ashford Work Phone: [facility] 02-26-2022 14:39-0500 Body temperature 98.1 [degF] Dr. Kevin Ashford Work Phone: [facility] 02-26-2022 14:39-0500 Body weight 102.[address] Kevin Ashford Work Phone: [facility] 02-26-2022 14:39-0500 Diastolic blood pressure 90 mm[Hg] Dr. Kevin Ashford Work Phone: [facility] 02-26-2022 14:39-0500 Heart rate 67 /min Dr. Kevin Ashford Work Phone: [facility] 02-26-2022 14:39-0500 Respiratory rate 14 /min Dr. Kevin Ashford Work Phone: [facility] 02-26-2022 14:39-0500 SaO2% (BldA) [Mass fraction] 97 % Dr. Kevin Ashford Work Phone: [facility] 02-26-2022 14:39-0500 Systolic blood pressure 144 mm[Hg] Dr. Kevin Ashford Work Phone: [facility] 02-25-2017 09:10-0500 BMI (Body Mass Index) 32.95 kg/m2 Austin ORDOÑEZ [facility] Work Phone: 02-25-2017 09:10-0500 Body Temperature 97.8 [...] 02-21-2017 09:07-0500 Pulse (Heart Rate) 76 /min eLland Madden PA-C [facility] Work Phone: 02-21-2017 09:07-0500 Respiratory Rate 12 /min Leland Madden PA-C [facility] Work Phone: 02-21-2017 09:07-0500 Weight 91.45 kg Leland Madden PA-C [facility] Work Phone: 02-13-2017 10:31-0500 BMI (Body Mass Index) 32.61 kg/m2 Fifi Caicedo PA-C [facility] Work Phone: 02-13-2017 10:31-0500 Body Temperature 98 [degF] Fifi Caicedo PA-C [facility] Work Phone: 02-13-2017 10:31-0500 BP Diastolic 84 mm[Hg] JOSÉ MANUEL [facility] Work Phone: 02-13-2017 10:31-0500 BP Systolic 122 mm[Hg] Fifi Caicedo PA-C [facility] Work Phone: 02-13-2017 10:31-0500 Height 165.1 cm Fifi Caicedo PA-C [facility] Work Phone: 02-13-2017 10:31-0500 Pulse (Heart Rate) 84 /min Fifi Caicedo PA-C [facility] Work Phone: 02-13-2017 10:31-0500 Respiratory Rate 14 /min Fifi Caicedo PA-C [facility] Work Phone: 02-13-2017 10:31-0500 Weight 88.91 kg Fifi Caicedo PA-C [facility] Work Phone: 06-05-2016 09:21-0500 BP Diastolic 82 mm[Hg] Fifi Caicedo PA-C [facility] Work Phone: 06-05-2016 09:21-0500 BP Systolic 136 mm[Hg] Fifi Caicedo PA-C [facility] Work Phone: 06-05-2016 09:21-0500 BSA (Body Surface Area) 1.94 m2 Fifi Caicedo PA-C [facility] Work Phone: Encounters Encounter Date Encounter Type Care Provider Facility Start: 11-30-2024 ambulatory Natalia Blandonlay Facility :[facility] Start: 11-17-2024 End: 11-17-2024 Patient encounter procedure Zoran ORDOÑEZ -[facility] Work Phone: Start: 11-17-2024 End: 11-17-[address] Natalia Patton MD Work Phone: -[facility] Start: 09-26-2024 End: 09-26-2024 Patient encounter procedure Austin Back [facility] Work Phone: Start: 09-26-2024 End: 09-26-[address] Natalia Patton MD Work Phone: [facility] Start: 09-03-2024 End: 09-03-2024 Patient encounter procedure Kevin BARRERA [facility] Work Phone: Start: 09-03-2024 End: 09-03-[address] Natalia Patton MD Work Phone: [facility] Work Phone: Start: 07-20-2024 ambulatory Natalia Patton Facility :[facility] Start: 07-14-2024 End: 07-14-2024 ambulatory FIFILISA ALCOCER [facility] Start: 07-14-2024 End: 10-13-2024 Subsequent hospital visit by physician Fifi Alcocer [employer] Work Phone: [facility] Radiology Comment on above: Nonspecific reaction to cell mediated immunity measurement of gamma interferon antigen response without active tuberculosis Nonspecific reaction to cell mediated immunity measurement of gamma interferon antigen response without active tuberculosis (Primary Dx) Start: 06-20-2024 End: 06-20-2024 Patient encounter procedure Austin Back PA [facility] Work Phone: Start: 06-20-2024 End: 06-20-2024 ambulatory Austin ORDOÑEZ Facility:[facility] Start: 05-29-2024 End: 05-29-2024 Patient encounter procedure Juan Moise [employer]-C [facility] Work Phone: Start: 05-29-2024 End: 05-29-2024 ambulatory Juan Moise Facility:[facility] Start: 05-25-2024 End: 05-25-2024 Patient encounter procedure Meek Gloria PA -[facility] Work Phone: Start: 05-25-2024 End: 05-25-2024 ambulatory Natalia Cleveland Facility:[facility] Start: 05-17-2024 End: 05-17-[address] Natalia Patton MD -[facility] Work Phone: Start: 05-17-2024 End: 05-17-2024 ambulatory Natalia Cleveland Facility:[facility] Start: 04-25-2024 End: 04-25-2024 ambulatory Natalia Abdi Facility:[facility] Start: 03-15-2024 End: 03-15-2024 ambulatory Natalia Abdi Facility:[facility] Start: 03-15-2024 End: 03-15-2024 ambulatory Natalia Cleveland Facility:[facility] Start: 01-24-2024 End: 01-24-2024 ambulatory Natalia Cleveland Facility:[facility] Start: 08-04-2022 End: 08-04-2022 ambulatory SMITA [facility] Work Phone: Start: 08-04-2022 End: 08-04-2022 Patient encounter procedure SMITA [facility] Start: 04-29-2022 End: 04-29-[address] Kevin Ashford Work Phone: [facility]-Sleep [facility] Start: 04-23-2022 End: 04-23-[address] Kevin Ashford Work Phone: [facility] Work Phone: Start: 04-23-2022 End: 04-23-[address] Kevin Ashford Work Phone: [facility]-Laboratory, [facility] Start: 04-23-2022 End: 04-23-[address] Kevin Ashford Work Phone: [facility] Internal Medicine Start: 04-22-2022 Non-patient / Non-visit Dr. Ivana Ashford Work Phone: [facility] Start: 04-20-2022 End: 04-20-[address] Kevin Ashford Work Phone: [facility] Work Phone: Start: 04-20-2022 End: 04-20-[address] Kevin Ashford Work Phone: [facility]-Pulmonary Services/Neurology Start: 02-26-2022 End: 02-26-[address] Kevin Ashford Work Phone: [facility] Work Phone: Start: 02-26-2022 End: 02-26-[address] Kevin Ashford Work Phone: [facility] Internal Medicine Start: 07-09-2021 End: 07-09-2021 Patient encounter procedure [facility]-Outpatient Breast Imaging Start: 04-07-2021 End: 04-07-2021 Patient encounter procedure [facility]-Laboratory, [place] Family Procedures Date Procedure Procedure Detail Performing [...] for Adults (1 - 1-dose 75+ series) [facility] Start: 01-01-2030 Zoster Vaccines (1 o f 2) Zoster Vaccines (1 of 2) [facility] Start: 11-27-2024 Influenza vaccination [facility] Start: 05-17-2024 Patient referral [facility] Work Phone: Start: 11-28-2023 COVID-19 Vaccine ( season) COVID-19 Vaccine ( season) [facility] Start: 2020 Screening for malign ant neoplasm of breast Mammogram [facility] Start: 02-25-2017 End: 02-25-2017 Appointment Appointment [facility] Work Phone: Start: 02-21-2017 End: 02-21-2017 Appointment Appointment [facility] Work Phone: Start: 02-13-2017 End: 02-13-2017 Streptococcus.beta-hemo lytic [Presence] in Throat by Organism specific culture [facility] Work Phone: Start: 02-13-2017 End: 02-13-2017 Appointment Appointment [facility] Work Phone: Start: 06-05-2016 End: 06-05-2016 *CBC with Differential *CBC with Differential [facility] Work Phone: Start: 06-05-2016 End: 06-05-2016 *CMP Complete Metabolic Panel *CMP Complete Metabolic Panel [facility] Work Phone: Start: 06-05-2016 End: 06-05-2016 Chest x-ray 1 view frontal X-Ray, Chest, PA [facility] Work Phone: Start: 06-05-2016 End: 06-05-2016 Thyroid stimulating hormone (TSH) *TSH [facility] Work Phone: Start: 05-26-2016 End: 06-05-2016 Streptococcus.beta-hemo lytic [Presence] in Throat by Organism specific culture *Culture, R/O Strep A Swab [facility] Work Phone: Start: 01-01-1999 DTaP/Tdap/Td Vaccine s (1 - Tdap) DTaP/Tdap/Td Vaccines (1 - Tdap) [facility] Start: 01-01-1999 Hepatitis B Vaccines (1 of 3 - 19+ 3-dose series) Hepatitis B Vaccines (1 of 3 - 19+ 3-dose series) [facility] Start: 01-01-1998 Hepatitis C screening Hepatitis C Sc reening [facility] Start: 1992 Depression Monitoring Depression Mon itoring [facility] Start: 01-01-1981 MMR Vaccines (1 of 1 - Standard series) MMR Vaccines (1 of 1 - Standard series) [facility] Start: 1980 HIV screening HIV Screening [facility] Start: 1980 Lipid panel Lipid Panel [facility] Measurement of respiratory function [facility] Work Phone: MG Breast - bilatera l Screening [facility] OUTSIDE PROCEDURE SCAN OUTSIDE P ROCEDURE SCAN Procedures Ordered: 07/14/2024 [facility] Comment on above: Ordered: 07/14/2024 Patient Education UPPER%20RESPIR ATORY%20I NFECTION, ACUTE%20BRONCHITIS [facility] [employer] Work Phone: Patient referral [facility] Work Phone: [facility] Payers Date Payer Category Payer Other [facility] [employer] [facility] [id number] 2024 Unknown [id number] 2024 Self-pay [id number] 2012 Unknown [id number] 2012 Unknown [id number] Unknown [id number] Unknown [id number] Unknown [id number] Unknown [id number] [id number] Unknown [id number] [id number] Unknown [id number] [id number] Unknown [id number] [id number] Unknown [id number] [id number] Unknown [id number] [id number] Unknown [id number] [id number] Unknown [id number] [id number] Unknown [id number] [id number] Unknown [id number] [id number] Unknown [id number] [id number] Unknown [id number] Unknown [id number] Social History Date Type Detail Facility Start: 10-19-2020 End: 04-23-2022 Tobacco smoking status IDIS Unknown if ever smoked [facility] Start: 10-02-2019 Non-smoker [facility] Start: 1980 Sex Assigned At Female [facility] Start: 05-17-2024 Tobacco smoking stat [facility] Ex-smoker [facility] End: 03-29-2006 History of tobacco use Current smoker [facility] End: 03-29-2006 History of tobacco use Cigarette Smoker [facility] Start: 2016 Alcoholic beverage intake Current non-drinker of alcohol (finding) [facility] Start: 1980 Sex assigned at Not on file [facility] Start: 10-27-2021 Sex Female (finding) [facility] Gender identity Not on file [facility] Medical Equipment Procedure Code Equipment Code Equipment [...] tunnel syndrome, left acute November 17 7:29am [facility] Work Phone: 1([phone]) 878-499206-08-2025 [facility] [address], [address] [place] [address] OFFICE VISIT Date of Service: 09/03/24 MR#: [id number] Acct: [id number] Name: KADIE MAK Rep #: [id number] : 1980 Provider: HOLLY Panda Age/Sex: 44/F [place] [facility] Status: Signed Intake Vital Signs 05/17/24 11:41 [...] house current occupational status: employed current occupation: [employer] sexually active: No Smoking Status: Former [...] Yes additional social history: 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 She states she originally noted chills and fever. She also notes anew cough that has become productive over the last three days. She acknowledges body aches. 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 ROS Const Constitutional: [...] days 10 tabs 0RF 09/03/24 0918 P UNION LABORER-C> Date _ Kevin Drakeigngray Signature: Date (if applicable) CC: Dr. 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 She states she originally noted chills and fever. She also notes a new cough that has become productive over the last three days. She acknowledges body aches. 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 ROS Const Constitutional: [...] applicable) CC: Dr. Natalia Patton MD ~ [facility] Work Phone: 1(577) 209-865703-03-2025 Evaluation note* Diagnosis Onset Date Resolution Status Admit Date Flu-like symptoms acute May 292024 10:24am URI (upper respiratory infection) resolved September 03, 2024 8 :48am [facility] Work Phone: 1(525) 359-240302-19-2025 Evaluation note* Diagnosis Onset Date Resolution Status [...] infection) resolved September 03, 2024 8 :48am [facility] Work Phone: [phone] Procedure [facility] Evaluation noteNo assessment information [facility] note* Diagnosis Onset Date Resolution Status Dysesthesia of scalp chronic Hypertension chronic MIGUEL (obstructive sleep apnea) chronic History of COVID-19 noneacti ve SOB (shortness of breath) no neactive Wheezing noneactive Former smoker noneactive [facility] Work Phone: Evaluation note* Diagnosis Onset Date [...] hypertension nonea ctive Obesity (BMI 30-39.9) noneac [facility] Work Phone: Evaluation note* Diagnosis [...] Essential hypertension nonea ctive Obesity (BMI 30-39.9) [facility]* Diagnosis Nonspecific reaction to cell mediated immunity measurement of gamma interferon antigen response without active tuberculosis [facility] Nonspecific reaction to cell mediated immunity measurement of gamma interferon antigen response without active tuberculosis- Primary Nonspecific reaction to cell mediated immunity measurement of gamma interferon antigen response without active tuberculosis documented in this encounter [facility] Discharge instructionsAmbulatory Orders* Orthopedics Location: None Selected [facility] Work Phone: Reason for referral (narrative)No reason for referral information availableWhitewater [facility] Services Work Phone: Chief Complaint and Reason for Visit Chief Complaint SCREENING Chief Complaint ACUTE- BP ISSUES EORDER- CHEST XRAY- SOB, Wheezing Reason for Visit Dysesthesia of scalp Hypertension MIGUEL (obstructive sleep apnea) History of COVID-19 SOB (shortness of breath) Wheezing Former smoker Chief Complaint ACUTE- BP ISSUES EORDER- CHEST XRAY- SOB, Wheezing SOB Shortness of breath service captain est care Reason for Visit Dysesthesia of [...] XRAY- SOB, Wheezing SOB Shortness of breath service captain est care MIGUEL Reason for Visit Dysesthesia [...] 30-39.9) Chief Complaint SOB Shortness of breath service captain est care MIGUEL MIGUEL,BIPAP ST *DEVICE TAGGED [...] No October 19, 2020 6:44pm Power of Information Technology Coordinator No October 19 6:44pm Advance Directive Response Recorded Date/ Time Advance Directives No February 2:06pm Living Will No October 19, 2020 5:44pm Power of Information Technology Coordinator No October 19 5:44pm Advance Directive Response [...] Primary Care Provider Active Leland Rajput NP, UNION LABORER-C Attending Provider Active Team Status: Active Member [...] 2024 End: September 03, 2024 Kevin Panda UNION LABORER, UNION LABORER-C Attending Provider Active S tart: September 03, [...] 29, 2024 End: May 29, 2024 Juan Moise , UNION LABORER-C Attending Provider Active Star t: May 29, [...] 2024 End: September 03, 2024 Kevin Panda UNION LABORER, UNION LABORER-C Attending Provider Active S tart: September 03, [...] 2024 End: September 03, 2024 Kevin Panda UNION LABORER, UNION LABORER-C Attending Provider Active S tart: September 03, [...] section and content) DATE CREATED AUTHOR 07/16/2024 [facility] DATE CREATED AUTHOR AUTHOR'S ORGANIZ ATION 11/30/2024 [facility] FOR RECORDS PERTAINING TO PATIENTS WHO [...] BE BASED ON THE PRIMARY CLINICAL RECORDS. [facility]. provides no warranty or guarantee of the accuracy or completeness of information in this document.
== END | disposition home or self-care (01) ==
LOC: PSN 09:39
PROVIDERS: PCP Internal Medicine; Referring Provider Physician Assistant; Visit Provider Physician Assistant
DX: G56.02 Carpal tunnel syndrome, left upper limb (principal)
CPT/HCPCS: 95886; 95909

== ENCOUNTER 2025-03-14 08:27 | Day surgery (SDC) | payer MEDICAID, SELFPAY ==
--- NOTE | 2025-03-07 19:36 | PAT.ANESEVAL ---
Pre-Assessment Diagnosis/Proposed Procedure Planned Operative Procedure(s): LEFT ENDOSCOPIC CARPAL TUNNEL RELEASE Anesthesia History Anesthesia History - personal care attendant: Anesthesia History - personal care attendant Hx Hospitalization No 03/07/25 12:50 Any Problems With Anesthesia Yes: NAUSEA 03/07/25 12:50 Cholinesterase deficiency No 03/07/25 12:50 You/Your Family Experience No 03/07/25 12:50 fever (hyperthermia) with Relationship Recent Exposure to Contagious No 03/14/24 15:33 Disease Does patient have nerve No 03/07/25 12:50 stimulator Patient instructed to have device shut off --Does patient have Pacemaker or ICD? When Was Last Pacemaker Check QUESTION #4 FULL TEXT: You/Your Family Experience fever (hyperthermia) with Anesthesia Last Oral Intake Last Oral intake: Last Oral Intake NPO since Meds taken in AM with sips of water? Meds patient instructed to take am of surgery PONV PONV - personal care attendant: PONV - personal care attendant Female Yes 03/07/25 12:50 HX of Motion Sickness Yes 03/07/25 12:50 HX of N/V After Surgery Yes 03/07/25 12:50 Non-Smoker Yes 03/07/25 12:50 Duration of Surgery greater No 03/07/25 12:50 than 60 minutes Number of Risk Factors 4 03/07/25 12:50 PONV Score Severe Risk 03/07/25 12:50 Height & Weight Height & Weight: Anesthesia: Height & Weight Height 5 ft 4 in 01/05/25 09:05 Respiratory Assessment Respiratory Assessment - personal care attendant: Respiratory Tract Infection Hx - personal care attendant Hx Respiratory Tract Infection No 03/07/25 12:50 STOP Sleep Apnea STOP Sleep Apnea - personal care attendant: STOP Sleep Apnea - personal care attendant Hx Hypertension Yes: CONTROLLED WITH MED 03/07/25 12:50 Hx Sleep Apnea Yes 03/07/25 12:50 CPAP Yes: NONCOMPLIANT 03/07/25 12:50 BIPAP No 03/07/25 12:50 Do you snore loudly (louder Yes 03/07/25 12:50 than talking or can be heard Do you often feel tired/ Yes 03/07/25 12:50 fatigued/ sleepy during daytime? Has anyone observed you stop No 03/07/25 12:50 breathing during sleep? STOP Results Positive 03/07/25 12:50 QUESTION #5 FULL TEXT : Do you snore loudly (louder than talking or can be heard through closed doors)? Tobacco Use History Tobacco Use History - personal care attendant: Tobacco Use History - personal care attendant Tobacco Use Smoking Status Former smoker 03/07/25 12:50 Hx Tobacco Use No 03/07/25 12:50 Years Smoking Packs Smoked per Day Smoking Cessation Date was No - quit smoking greater 03/07/25 12:50 within the last 15 years than 15 years ago Hx Smoking Cessation Date 10/20/07 03/07/25 12:50 Hx Smoking Cessation No 03/07/25 12:50 Counseling Hematologic Medial History Hematologic Hx - personal care attendant: Hematologic Medical Hx - cell technician Hx of Blood Transfusion No 03/07/25 12:50 Hx of Transfusion in last 3 No 03/07/25 12:50 Months Date of Last Transfusion (if within last 3 months) Ever experience any problems No 03/07/25 12:50 with transfusion(s)? Specify any problems Hx of Preganancy in last 3 No 03/07/25 12:50 Months Nurse Filling Out Transfusion DSCHRIBER 03/07/25 12:50 & Questions: Date: 03/07/25 03/07/25 12:50 Time: 12:52 03/07/25 12:50 Patient unable to answer at this time (ie. confused, unrespo /Reproduction History /Reproductive History - personal care attendant: /Reproductive Hx- personal care attendant Hx Now No 03/07/25 12:50 Gestational Age (in weeks): EDC: Hx Hx Para Hx Section SAB No 03/07/25 12:50 Does the father of the baby or his family experience fever w Father of the baby Malignant Hypertension history comment PFSH Medical History Wears contact lenses Anxiety Substance abuse CPAP (continuous positive airway pressure) dependence History of echocardiogram Left ovarian cyst Hypertension History of migraine headaches Home Medications ?Medication ?Instructions ?Recorded ?Last Taken ?Type buprenorphine 2 mg-naloxone 0.5 mg 1 tab sublingual TID 09/14/19 Unknown History sublingual tablet multivitamin 1 ea PO DAILY 10/02/19 Unknown History elderberry fruit 350 mg capsule 350 mg PO DAILY 02/26/22 Unknown History hydrochlorothiazide 25 mg tablet 25 mg PO DAILY #90 tabs 11/03/24 Unknown Rx clotrimazole-betamethasone 1 1 applic topical BID 4 weeks #45 01/16/25 Unknown Rx %-0.05 % topical cream grams escitalopram oxalate 10 mg tablet 10 mg PO DAILY #90 tabs 01/18/25 Unknown Rx (Lexapro) sumatriptan succinate 6 mg/0.5 mL 6 mg (0.5 mL) subcut PRN PRN 01/24/25 Unknown Rx subcutaneous pen injector Migraine Symptoms #1 mL Allergy/AdvReac Type Severity Reaction Status Date / Time duloxetine (From Cymbalta) Allergy Rash Verified 03/07/25 12:48 sulfamethoxazole (From AdvReac Mild Headache Verified 03/07/25 12:48 Bactrim) and elevated BP trimethoprim (From Bactrim) AdvReac Mild Headache Verified 03/07/25 12:48 and elevated BP Family History Mother Cancer cervical Breast cancer Father Cancer Throat Diabetes Hypertension Grandmother Breast cancer Cancer Stomach Grandfather Cancer Prostate Grandmother Cancer brain Hypertension Grandfather Cancer lung Aunt Diabetes Son ADHD Surgical History Hx of colonoscopy History of left oophorectomy H/O sinus surgery History of tonsillectomy delivery delivered H/O: hysterectomy Social History household members: children housing: house current occupational status: employed current occupation: [employer] sexually active: No Smoking Status: Former smoker quit date: 03/29/06 pack-years: 14 Electronic Cigarette Use: not used alcohol intake: current alcohol intake frequency: holidays/special occasions only substance use type: former substance user Date of last use: 2014 and opiates caffeine: Yes what type of physical activity do you participate in: walking frequency: 5-6 times per week seatbelt use: always do you feel safe at home: Yes additional social history: 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
[2025-03-14] VITALS (9 sets, daily range): BP systolic 93–127; BP diastolic 56–73; PULSE 53–67; RESP 16–20; TEMP 36.4–36.8; O2SAT 92–98; BMI 35.6
[2025-03-14] MEDS: Lactated Ringers 1,000 ML 15 ML IV (09:13)
--- NOTE | 2025-03-14 09:34 | PCM.PRE.AN2 ---
ASA Classification* ASA Classification ASA Classification: 2 Assessment & Plan Anesthesia* Anesthesia Assessment Anesthesia Assessment: Discussed sedation and/or anesthesia options, risks, benefits, and alternatives with patient/parents/legal guardian/POA. Questions invited. The patient/parents/legal guardian/POA seems to understand and agrees to proceed with anesthesia plan. Reviewed the physical assessment, medical history, allergy history and patient home medications list prior to surgery/procedure/anesthetic and documented any changes. Performed airway and anesthesia risk assessments. Anesthesia Type Anesthesia Type: MAC (General As a backup.) History Source History Obtained from:: Patient and Chart Anesthesia Focused Assessment* Temperature: 98 F Pulse Rate: 61 Blood Pressure: 127/73 Respiratory Rate: 16 Pulse Ox: 95 Oxygen Delivery Method: Room Air Airway Assessment Mouth opens: >3 cm Mallampati Score: III Teeth Condition: Chipped/Broken (Right lower molar is chipped.) Neck Range of motion (ROM): Full ROM Labs Anesthesia Preop lab: CBC WBC, (4.4-11.0) 5.5 K/mm3 03/15/24, 07:07 RBC, (4.2-5.4) 5.03 M/mm3 03/15/24, 07:07 Hgb, (12.0-15.0) 14.0 g/dL 03/15/24, 07:07 Hct, (37-47) 43.1 % 03/15/24, 07:07 Plt Count, (150-450) 169 K/mm3 03/15/24, 07:07 CHEMISTRY Potassium, (3.5-5.1) 3.3 mmol/L L 03/15/24, 07:07 Sodium, (136-145) 138 mmol/L 03/15/24, 07:07 Magnesium, (1.6-2.6) 2.1 mg/dL 01/30/19, 10:19 BUN, (7-18) 15 mg/dL 03/15/24, 07:07 Creatinine, (0.55-1.02) 0.78 mg/dL 03/15/24, 07:07 Glucose, (74-106) 122 mg/dL H 03/15/24, 07:07 TSH, (0.358-3.74) 1.34 uIU/mL 04/07/21, 09:33 COAG Urine Test Negative Negative 02, 05:45 Tst Clinic Negative 03/14/18, 15:17 Pre-Assessment Diagnosis/Proposed Procedure Planned Operative Procedure(s): LEFT ENDOSCOPIC CARPAL TUNNEL RELEASE Anesthesia History 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 When Was Last Pacemaker Check QUESTION #4 FULL TEXT: You/Your Family Experience fever (hyperthermia) with Anesthesia Last Oral Intake Last Oral intake: Last Oral Intake NPO since 02:00 03/14/25 09:14 Meds taken in AM with sips of No 03/14/25 09:14 water? 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 Female Yes 03/07/25 12:50 HX of Motion Sickness Yes 03/07/25 12:50 HX of N/V After Surgery Yes 03/07/25 12:50 Non-Smoker Yes 03/07/25 12:50 Duration of Surgery greater No 03/07/25 12:50 than 60 minutes Number of Risk Factors 4 03/07/25 12:50 PONV Score Severe Risk 03/07/25 12:50 Height & Weight Height & Weight: Anesthesia: Height & Weight Height 5 ft 5 in 03/14/25 09:14 Weight: 97 kg 03/14/25 09:14 Body Mass Index (BMI) 35.6 03/14/25 09:14 Respiratory Assessment Respiratory Assessment - fire extinguisher installer: Respiratory Tract Infection Hx - fire extinguisher installer Hx Respiratory Tract Infection No 03/07/25 12:50 STOP Sleep Apnea STOP Sleep Apnea - fire extinguisher installer: STOP Sleep Apnea - fire extinguisher installer Hx Hypertension Yes: CONTROLLED WITH MED 03/07/25 12:50 Hx Sleep Apnea Yes 03/07/25 12:50 CPAP Yes: NONCOMPLIANT 03/07/25 12:50 BIPAP No 03/07/25 12:50 Do you snore loudly (louder Yes 03/07/25 12:50 than talking or can be heard Do you often feel tired/ Yes 03/07/25 12:50 fatigued/ sleepy during daytime? Has anyone observed you stop No 03/07/25 12:50 breathing during sleep? STOP Results Positive 03/07/25 12:50 QUESTION #5 FULL TEXT : Do you snore loudly (louder than talking or can be heard through closed doors)? 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 Specify any problems Hx of Preganancy in last 3 No 03/07/25 12:50 Months Nurse Filling Out Transfusion DSCHRIBER 03/07/25 12:50 & Questions: Date: 03/07/25 03/07/25 12:50 Time: 12:52 03/07/25 12:50 Patient unable to answer at this time (ie. confused, unrespo /Reproduction History /Reproductive History - fire extinguisher installer: /Reproductive Hx- fire extinguisher installer Hx Now No 03/07/25 12:50 Gestational Age (in weeks): EDC: Hx Hx Para Hx Section SAB No 03/07/25 12:50 Does the father of the baby or his family experience fever w Father of the baby Malignant Hypertension history comment Active Medications Active Medications: Current Medications Generic Name Dose Route Start Last Admin Trade Name Freq PRN Reason Stop Dose Admin Lactated Ringer's 1,000 mls @ 15 mls/hr 03/14/25 08:45 03/14/25 09:13 IV 15 mls/hr .Q48H SUSANA Administration PFSH Medical History Wears contact lenses Anxiety Substance abuse CPAP (continuous positive airway pressure) dependence History of echocardiogram Left ovarian cyst Hypertension History of migraine headaches Home Medications ?Medication ?Instructions ?Recorded ?Last Taken ?Type buprenorphine 2 mg-naloxone 0.5 mg 1 tab sublingual TID 09/14/19 Unknown History sublingual tablet multivitamin 1 ea PO DAILY 10/02/19 Unknown History elderberry fruit 350 mg capsule 350 mg PO DAILY 02/26/22 Unknown History hydrochlorothiazide 25 mg tablet 25 mg PO DAILY #90 tabs 11/03/24 Unknown Rx clotrimazole-betamethasone 1 1 applic topical BID 4 weeks #45 01/16/25 Unknown Rx %-0.05 % topical cream grams escitalopram oxalate 10 mg tablet 10 mg PO DAILY #90 tabs 01/18/25 Unknown Rx (Lexapro) sumatriptan succinate 6 mg/0.5 mL 6 mg (0.5 mL) subcut PRN PRN 01/24/25 Unknown Rx subcutaneous pen injector Migraine Symptoms #1 mL Allergy/AdvReac Type Severity Reaction Status Date / Time duloxetine (From Cymbalta) Allergy Rash Verified 03/07/25 12:48 sulfamethoxazole (From AdvReac Mild Headache Verified 03/07/25 12:48 Bactrim) and elevated BP trimethoprim (From Bactrim) AdvReac Mild Headache Verified 03/07/25 12:48 and elevated BP Family History Mother Cancer cervical Breast cancer Father Cancer Throat Diabetes Hypertension Grandmother Breast cancer Cancer Stomach Grandfather Cancer Prostate Grandmother Cancer brain Hypertension Grandfather Cancer lung Aunt Diabetes Son ADHD Surgical History Hx of colonoscopy History of left oophorectomy H/O sinus surgery History of tonsillectomy delivery delivered H/O: hysterectomy Social History household members: children housing: house current occupational status: employed 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 sexually active: No Smoking Status: Former smoker quit date: 03/29/06 pack-years: 14 Electronic Cigarette Use: not used alcohol intake: current alcohol intake frequency: holidays/special occasions only substance use type: former substance user Date of last use: 2013 and opiate caffeine: Yes what type of physical activity do you participate in: walking frequency: 5-6 times per week seatbelt use: always do you feel safe at home: Yes additional social history: 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
--- NOTE | 2025-03-14 09:46 | PCM.HP.STD ---
HPI - General HPI Narrative KADIE REYES, is a 45 F who presents for left endoscopic carpal tunnel release. No changes to history and physical exam. Left wrist marked. Risks alternatives benefits discussed as well as postoperative instructions. The patient understands wished to proceed no further questions or concerns. MR#: [id number] Acct: [id number] Name: KADIE REYES Rep #: [id number] : 1980 Provider: Dr. Darrin Hackett MD Age/Sex: 45/F Location: [facility] Status: Signed Intake Vital Signs 01/05/2509:05 Height 5 ft 4 in Weight: 220 lb BMI 37.8 Intake Visit Reasons: LEFT HAND Chief Complaint: discuss surgery Accompanied by: Self Is patient in pain?: No Allergies duloxetine (From Cymbalta) Allergy (Verified 01/16/25 13:55) Rash sulfamethoxazole (From Bactrim) Adverse Reaction (Mild, Verified 01/16/25 13:55) Headache and elevated BP trimethoprim (From Bactrim) Adverse Reaction (Mild, Verified 01/16/25 13:55) Headache and elevated BP Medications ?Medication ?Instructions ?Recorded ?Confirmed ?Type buprenorphine 2 mg-naloxone 0.5 mg 1 tab sublingual TID 09/14/19 01/16/25 History sublingual tablet multivitamin 1 ea PO DAILY 10/02/19 01/16/25 History elderberry fruit 350 mg capsule mg PO 02/26/22 01/16/25 History sumatriptan succinate 6 mg/0.5 mL 6 mg (0.5 mL) subcut PRN PRN 05/17/24 01/16/25 Rx subcutaneous pen injector Migraine Symptoms #1 mL hydrochlorothiazide 25 mg tablet 25 mg PO DAILY #90 tabs 11/03/24 01/16/25 Rx escitalopram oxalate 10 mg tablet 10 mg PO DAILY #30 tabs 11/08/24 01/16/25 Rx (Lexapro) PFSH Medical History Flu-like symptoms Gastroenteritis Left wrist sprain Chest pain Acid reflux Dysgraphia Fatigue Bronchitis Headache Gastroenteritis Right foot strain Left ovarian cyst Chronic pelvic pain in female Hypertension History of migraine headaches Surgical History History of left oophorectomy H/O sinus surgery History of tonsillectomy delivery delivered H/O: hysterectomy Family History Mother Cancer cervical Breast cancer Father Cancer Throat Diabetes Hypertension Grandmother Breast cancer Cancer Stomach Grandfather Cancer Prostate Grandmother Cancer brain Hypertension Grandfather Cancer lung Aunt Diabetes Son ADHD Social History household members: children housing: house current occupational status: employed current occupation: [employer] sexually active: No Smoking Status: Former smoker quit date: 03/29/06 pack-years: 14 Electronic Cigarette Use: not used alcohol intake: current alcohol intake frequency: holidays/special occasions only substance use type: former substance user Date of last use: 2013 and opiates caffeine: Yes what type of physical activity do you participate in: walking frequency: 5-6 times per week seatbelt use: always do you feel safe at home: Yes additional social history: 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 Darrin Hackett MD 01/16/25 3161. Part of today?s visit was documented by [ ], acting as scribe. KADIE REYES is a 45 year old F here today for follow-up left carpal tunnel syndrome unfortunately the patient did not experience significant relief after the injection still having numbness into the thumb index and middle finger. Occasionally will get an electric shock sensation up into the middle of the volar forearm with turning patients. Ortho Exam General General: Yes no acute distress Neurologic: Yes alert and Yes oriented x3 Psychologic: Yes reasonable and appropriate Right Wrist/Hand Skin/Wound: No Swelling and No Ecchymosis Left Wrist/Hand Skin/Wound: Yes CDI, No Swelling, No Ecchymosis, Yes nail intact, Yes capillary refill normal and No erythema Left Wrist: Yes ROM-Extension 0-60, Yes ROM-Flexion 0-80, Yes ROM-Pronation 0-80 and Yes ROM-Supination 0-90; No Durken's Test, No Tinel's, No Phalen's, No Tender to palpate triangular fibrocartilage complex, No Thenar Atrophy and No Hypothenar Atrophy Motor: EPL: 5, FDP-2: 5, 1st Dorsal Interosseous: 5 and APB: 5 Sensation: Radial: I, Ulnar: I and Median: D Coding Level of Care Code Off vis,est,level 4 Diagnoses Carpal tunnel syndrome, left G56.02 Assessment and Plan Assessment and Plan (1) Carpal tunnel syndrome, left: Status: Acute Plan: 45-year-old female with signs and symptoms as well as nerve conduction study evidence of the left carpal tunnel syndrome mild in nature the patient has now failed conservative management including night splinting and cortisone injections. The patient wished to go ahead with surgery. Discussed the 2 different forms of mini open or endoscopic. There is pros and cons risks and benefits to each of these possibly quicker recovery with endoscopic possibly higher chance of incomplete release although this is controversial and literature. Patient understands wished to go ahead with a left endoscopic carpal tunnel release typically the recovery 6 weeks before going back to any surgery significant heavy lifting pushing or pulling. The patient understood signed the consent form for surgery. Pros and cons risks and benefits were discussed with the patient including but not limited to infection, pain, stiffness, bleeding, damage to surrounding structures, neurovascular injury, recurrence or retear, failure or wear of hardware or fixation, instability, fracture, deep vein thrombosis and pulmonary embolism, anesthetic risks, , patient dissatisfaction, need for further surgery and other risks. Patient understood and wished to proceed with surgery, and signed the informed consent documentation. [facility] Medical History Wears contact lenses Anxiety Substance abuse CPAP (continuous positive airway pressure) dependence History of echocardiogram Left ovarian cyst Hypertension History of migraine headaches Home Medications ?Medication ?Instructions ?Recorded ?Last Taken ?Type buprenorphine 2 mg-naloxone 0.5 mg 1 tab sublingual TID 09/14/19 Unknown History sublingual tablet multivitamin 1 ea PO DAILY 10/02/19 Unknown History elderberry fruit 350 mg capsule 350 mg PO DAILY 02/26/22 Unknown History hydrochlorothiazide 25 mg tablet 25 mg PO DAILY #90 tabs 11/03/24 Unknown Rx clotrimazole-betamethasone 1 1 applic topical BID 4 weeks #45 01/16/25 Unknown Rx %-0.05 % topical cream grams escitalopram oxalate 10 mg tablet 10 mg PO DAILY #90 tabs 01/18/25 Unknown Rx (Lexapro) sumatriptan succinate 6 mg/0.5 mL 6 mg (0.5 mL) subcut PRN PRN 01/24/25 Unknown Rx subcutaneous pen injector Migraine Symptoms #1 mL Allergy/AdvReac Type Severity Reaction Status Date / Time duloxetine (From Cymbalta) Allergy Rash Verified 03/07/25 12:48 sulfamethoxazole (From AdvReac Mild Headache Verified 03/07/25 12:48 Bactrim) and elevated BP trimethoprim (From Bactrim) AdvReac Mild Headache Verified 03/07/25 12:48 and elevated BP Family History Mother Cancer cervical Breast cancer Father Cancer Throat Diabetes Hypertension Grandmother Breast cancer Cancer Stomach Grandfather Cancer Prostate Grandmother Cancer brain Hypertension Grandfather Cancer lung Aunt Diabetes Son ADHD Surgical History Hx of colonoscopy History of left oophorectomy H/O sinus surgery History of tonsillectomy delivery delivered H/O: hysterectomy Social History household members: children housing: house current occupational status: employed current occupation: [employer] sexually active: No Smoking Status: Former smoker quit date: 03/29/06 pack-years: 14 Electronic Cigarette Use: not used alcohol intake: current alcohol intake frequency: holidays/special occasions only substance use type: former substance user Date of last use: 2014 and opiates caffeine: Yes what type of physical activity do you participate in: walking frequency: 5-6 times per week seatbelt use: always do you feel safe at home: Yes additional social history: 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
[2025-03-14] MEDS: Lactated Ringers 500 ML IV (10:02)
[2025-03-14] MEDS: Cefazolin 1 GM/5 ML Vial 2 GM IV (10:02)
[2025-03-14] MEDS: Lidocaine 1% (5 ml sdv) 5 ML Vial IV (10:07)
[2025-03-14] MEDS: dexMEDEtomidine 200 MCG/2 ML ML 40 MCG IV (10:07)
--- NOTE | 2025-03-14 10:30 | PCM.OPRPT ---
Procedures Musculoskeletal 20xxx-29xxx: Other Procedure See Report Operative Report (Standard) Operative Information Date of Procedure: 03/14/25 Pre-Operative Diagnosis: Left carpal tunnel syndrome Post-Operative Diagnosis: same Surgery/Procedure Performed: Left endoscopic carpal tunnel release claims account specialist: No Type of Anesthesia: General and Local RN Documented Start/Stop Times: Operation Date: 03/14/25 10:20 Case Time Into Pre-Op 03/14/25 08:40 Anesthesia Start 03/14/25 10:02 Into Room 03/14/25 10:02 Out of Pre-Op 03/14/25 10:02 Procedure Start 03/14/25 10:15 Procedure End 03/14/25 10:30 Anesthesia End 03/14/25 10:34 Out of Room 03/14/25 10:34 Procedure Start Time: 10:15 Procedure Stop Time: 10:30 Select all DRAINS/GRAFTS/IMPLANTS that apply: None Estimated Blood Loss: 5 Specimen collected: No Description of surgery: Patient brought to the operating room theater. Placed supine upon on the table. 2g iv ancef before the start of the case. MAC/LMA induced by the anesthetic team. Patient placed supine on the table all bony prominences padded. SCDs on the legs. Hand table used left side. Tourniquet applied properly padded to the upper extremity. Upper extremity prepped and draped in the usual sterile fashion with chlorhexidine-based prep solution allowing over 3 minutes drying time prior to draping. Preoperative timeout performed to confirm the site patient and the surgery. Began by elevating the limb and inflated the tourniquet to 250 mmHg. I used the [employer] nanoscope / center line endoscopic carpal tunnel kit technique. 5cc 0.25% bupivicaine for local anesthesia. I made a transverse 2 cm incision in line with the? transverse wrist crease.? This was in line with the fourth digit.? I carried the dissection down through skin and subcutaneous tissue achieved meticulous hemostasis. Just ulnar to palmaris tendon.? I incised the antebrachial fascia, in a U shape.? I passed sequential dilators into the carpal tunnel along the radial border of the Guyon's canal aiming for the fourth digit with the wrist in extension.? I used a synovial elevator to identify the transverse fibers of the transverse carpal tunnel ligament.? Passed the scope into the carpal tunnel. Once I had identified the full proximal and distal extent of the ligament I fully released the ligament under direct visualization by deploying the blade and slowly withdrawing the scope made sequential passes until I no longer felt tension as well as the entire extent of the ligament was released under direct visualization.? Sounded the tunnel with lew tenotomy scissors, complete release, no bands. Nerve visualized and protected. Arthroscope light was more visible through the skin. More room for the large dilator. Release the forearm fascia also proximal. Pictures taken and saved. Wounds thoroughly irrigated.? Tourniquet let down prior to end of the case and meticulous hemostasis achieved.? Thorough irrigation.? ? Incisions closed with 3-0 ethilon, horizontal mattress. ?Then adaptic 4x4 gauze and tape. Patient woken up,? transferred off the operating room table and taken to postanesthetic care unit in stable condition. All sponge needle instrument counts were correct no complications.?Plan for the patient to be discharged home according to day surgery criteria when they are comfortable. Follow-up in the office in 2 days time. Gentle ROM finger and elbow no heavy lifting. Recommend wrist brace 2 weeks. cpt 33172 Surgical Findings: as above Complications Complications: No Admit VTE Documentation VTE Present on Admission: No VTE Mechan Device Prophylaxis: SCD's VTE Pharm Prophylaxis ordered?: No Reason prophylaxis not ordered: Treatment Not Indicated
--- NOTE | 2025-03-14 10:33 | EX.PCM.DISCH ---
Discharge Instructions Diet Discharge Diet: No restrictions Activity Discharge Activity: Return to Normal Activity Ice area for (Minutes): 10 Weight Bearing Status: Weight bearing as tolerated Lifting Restrictions: no repetitive or heavy lifting or gripping, wear brace 2 weeks Keep extremity elevated above heart level: Operative Extremity Additional Activity Instructions:: ok for finger ROM, ok to take breaks from the brace Dressing / Incision Call your doctor if your incision/area has: Continuous Slow Oozing, Sudden Increased Bleeding, Increased Pain/ Swelling, Increased Redness, Foul Smelling Discharge and Swelling at the incision site Call your doctor if you observe: Fever of 101 or Higher, Coldness, Increased Pain and Numbness or Tingling Change Dressing in: leave in place till F/U Cleanse incision/area with: Do not get Incision Wet Follow Up Care Please Follow Up With: Darrin Hackett MD When: within 2 weeks Test Results: Test results from this visit will be discussed in further detail at your follow-up appointment, if applicable. Discharge Plan Admission Attending Provider: Darrin Hackett Primary Care Provider: Natalia Patton Instructions Patient Instructions: Carpal Tunnel Release Surgery Print Language: Beninese Discharge Orders/Prescriptions Prescriptions: No Action buprenorphine-naloxone 2-0.5 mg tablet, sublingual 1 tab SUBLINGUAL TID Patient Comments: PLACE 1 TABLET UNDER THE TONGUE THREE TIMES DAILY. ALLOW TO DISSOLVE SLOWLY IN MOUTH WITHOUT CHEWING OR SWALLING elderberry fruit 350 mg capsule 350 mg PO DAILY hydrochlorothiazide 25 mg tablet 25 mg PO DAILY Qty: 90 0RF clotrimazole-betamethasone 1-0.05 % cream 1 applic topical BID 28 Days Qty: 45 1RF multivitamin 1 EACH tablet 1 ea PO DAILY escitalopram oxalate [Lexapro] 10 mg tablet 10 mg PO DAILY Qty: 90 0RF sumatriptan succinate 6 mg/0.5 mL pen injector 6 mg SC PRN PRN (Reason: Migraine Symptoms) Qty: 1 2RF Referrals / Follow Up: Natalia Patton MD [Primary Care Provider, Internal Medicine] Darrin Hackett MD [Med Staff - Active Staff, Orthopedics] Disposition Disposition (needs filled in before D/C Order can be placed): Home, Self Care
--- NOTE | 2025-03-14 10:38 | PCM.POST.ANE ---
Anesthesia: Postop Eval I Current Vital Signs Temperature: 98.3 F Pulse Rate: 67 Blood Pressure: 100/62 Respiratory Rate: 20 Pulse Ox: 93 Assessment Airway patent: Yes Spontaneous unlabored respirations: Yes nausea: No Vomiting: No Anesthesia Complication: No Fluid Hydration Crystalloid volume administer (ml): 500 Total IV fluid infused: 500 Progress Note Anesthesia document: Postop Eval 1 completed: Yes
--- NOTE | 2025-03-14 22:02 | POSTOPAN2_ITS ---
Anesthesia Postop Eval I Sum Postop Eval Completion status Anesthesia document: Postop Eval 1 completed: Yes Anesthesia Postop Eval I Summary Anesthesia Postop Eval I Summary: Anesthesia Postop Eval I: Assessment Summary Airway patent Yes 03/14/25 10:38 [email or web address] Spontaneous unlabored Yes 03/14/25 10:38 [email or web address] respirations Mental status nausea No 03/14/25 10:38 [email or web address] Vomiting No 03/14/25 10:38 [email or web address] Anesthesia Postop Eval I: Fluid Summary Crystalloid volume administer 500 03/14/25 10:38 [email or web address] [email or web address] (ml) Colloids volume administered ( ml) Blood Product volume administered (ml) Total IV fluid infused 500 03/14/25 10:38 [email or web address] [email or web address] Anesthesia Postop Eval I: Summary Notes Anesthesia Complication No 03/14/25 10:38 [email or web address] Anesthesia Complication Comment: Post-operative progress note Anesthesia: Postop Eval II Evaluation Mental status: Awake and Calm Pain Level: 1 nausea: No Vomiting: No Complications Anesthesia Complication: No
--- NOTE | 2025-03-14 22:02 | PCM.POSTANE2 ---
Anesthesia Postop Eval I Sum Postop Eval Completion status Anesthesia document: Postop Eval 1 completed: Yes Anesthesia Postop Eval I Summary Anesthesia Postop Eval I Summary: Anesthesia Postop Eval I: Assessment Summary Airway patent Yes 03/14/25 10:38 TRIAL [email or web address] Spontaneous unlabored Yes 03/14/25 10:38 TRIAL [email or web address] respirations Mental status nausea No 03/14/25 10:38 TRIAL [email or web address] Vomiting No 03/14/25 10:38 TRIAL [email or web address] Anesthesia Postop Eval I: Fluid Summary Crystalloid volume administer 500 03/14/25 10:38 TRIAL [email or web address] (ml) Colloids volume administered ( ml) Blood Product volume administered (ml) Total IV fluid infused 500 03/14/25 10:38 TRIAL [email or web address] Anesthesia Postop Eval I: Summary Notes Anesthesia Complication No 03/14/25 10:38 TRIAL [email or web address] Anesthesia Complication Comment: Post-operative progress note Anesthesia: Postop Eval II Evaluation Mental status: Awake and Calm Pain Level: 1 nausea: No Vomiting: No Complications Anesthesia Complication: No
== END 2025-03-14 12:08 | disposition home or self-care (01) ==
LOC: SDC 08:29 → AC 08:30
PROVIDERS: PCP Internal Medicine; Referring Provider Orthopaedic Surgery Sports Medicine; Visit Provider Orthopaedic Surgery Sports Medicine
PROC: (CPT 29848; principal; 2025-03-14 10:05)
DX: G56.02 Carpal tunnel syndrome, left upper limb (principal); I10 Essential (primary) hypertension; Z87.891 Personal history of nicotine dependence; K21.9 Gastro-esophageal reflux disease without esophagitis
CPT/HCPCS: 29848; 01810; J2405